=== PATIENT | male | born 1950 | race Caucasian/White ===

== ENCOUNTER 2020-08-28 13:19 | Inpatient (IN) | payer MEDICARE, MEDICAID, SELFPAY ==
[2020-08-28] VITALS (20 sets, daily range): BP systolic 120–194; BP diastolic 61–105; PULSE 77–106; RESP 16–28; TEMP 36.1–37.2; O2SAT 92–100; BMI 23.9
--- NOTE | ~2020-08-28 | XR_ITS ---
EXAMINATION: XR chest 2V EXAM DATE: 09/03/2020 07:55 INDICATION: Right-sided pneumothorax. TECHNIQUE: Frontal and lateral upright projections of the chest obtained and reviewed. Comparison is made to prior examination from 09/02/2020. FINDINGS: There has been redevelopment of pneumoperitoneum. No evidence of the previously seen right-sided pneumothorax on this exam. Small amount of linear atel ectasis along the right major fissure. Small amount of left basilar subsegmental atelectasis. No pleu ral effusion. Cardiomediastinal silhouette is normal. Upper lumbar dextrocurvature. There are bony de generative changes. IMPRESSION: 1. Redevelopment of pneumoperitoneum. Please correlate with recent CT abdomen 08/31. 2. Subsegmental atelectasis. 3. No pneumothorax identified. Reviewed, dictated and finalized at location A.
--- NOTE | ~2020-08-28 | XR_ITS ---
EXAMINATION: XR chest 1V portable INDICATION: Right lung mass, bronchoscopy TECHNIQUE: Portable AP chest at 1515 hours COMPARISON: 08/28/2009 FINDINGS: There is a moderate-sized right pneumothorax. The lungs are free of acute opacities. The he art size is normal. There is curvilinear lucency at the right lung base. IMPRESSION: 1. Moderate-sized right pneumothorax. 2. Curvilinear lucency at the right lung base which could reflect a pleural reflection related to the pneumothorax however, free intraperitoneal gas can have a similar appearance. Although bowel perfora tion is an unlikely consequence of bronchoscopy, clinically correlate for abdominal pain and consider further evaluation with CT if present. Reviewed, dictated and finalized at location B. IMPRESSION: 1. Moderate-sized right pneumothorax. 2. Curvilinear lucency at the right lung base which could reflect a pleural ref lection related to the pneumothorax however, free intraperitoneal gas can have a similar appearance. Although bowel perforation is an unlikely consequence of bronchoscopy, clinically correlate for abdominal pain and consider further eval uation with CT if present.
--- NOTE | ~2020-08-28 | US_ITS ---
EXAMINATION: US venous doppler [facility] EXAM DATE: 08/29/2020 10:23 INDICATION: Pulmonary emboli. TECHNIQUE: Multiple grayscale, color flow and Doppler images of the lower extremity deep venous syste ms bilaterally were obtained and reviewed. There is no prior study for comparison. FINDINGS: Right side: The right common femoral, femoral and profunda veins demonstrate normal color flow, respi ratory variation, augmentation and compressibility. Compressibility, color flow confirmed within the right popliteal, posterior tibial, peroneal, and greater saphenous veins. Left side: The left common femoral, femoral and profunda veins demonstrate normal color flow, respira tory variation, augmentation and compressibility. Compressibility, color flow confirmed within the l eft popliteal, posterior tibial, peroneal, and greater saphenous veins. IMPRESSION: 1. No lower extremity deep venous thrombosis bilaterally. Reviewed, dictated and finalized at location A.
--- NOTE | ~2020-08-28 | XR_ITS ---
EXAMINATION: XR chest 1V portable DATE: 09/04/2020 05:38 INDICATION: Right pneumothorax TECHNIQUE: frontal view of the chest was obtained. COMPARISON: Chest radiograph dated 09/03/2020 FINDINGS: The lungs are clear with no focal airspace opacities, pulmonary edema, pleural effusion or pneumothor ax. The cardiomediastinal silhouette is normal. IMPRESSION: 1. No evident acute cardiopulmonary disease. Reviewed, dictated and finalized at location A.
--- NOTE | ~2020-08-28 | CT_ITS ---
EXAMINATION: CTA chest PE protocol DATE: 08/28/2020 15:50 INDICATION: Shortness of breath, left-sided chest pain TECHNIQUE: Computed tomography angiography (CTA) of the chest was performed with 100 mL Omnipaque-350 intravenous contrast timed to evaluate the pulmonary arteries. Coronal maximum intensity projection 3D-reconstructions were created by the technologist. The dose-length product (DLP) was 326.99 mGy-cm. Automated exposure control and iterative reconstruction technique were employed. COMPARISON: None. FINDINGS: The pulmonary arteries are well-opacified. There are acute emboli in subsegmental branches in the right lower lobe, the lingula, and the left lower lobe. There is a 3 cm right suprahilar mass. There are enlarged right paratracheal and subcarinal lymph nodes. There is a 1.5 cm nodule of the ri ght upper lobe on image 40. A 5 mm pleural-based nodule is present in the right upper lobe on image 3 3. There are patchy airspace dependent opacities in the lingula and left lower lobe. The heart size i s normal. IMPRESSION: 1. Pulmonary emboli in the lower lobes and lingula. 2. Right suprahilar mass with mediastinal lymphadenopathy concerning for primary bronchogenic carcino ma and metastatic lymphadenopathy. 3. Indeterminate nodules in the right upper lobe which could reflect metastatic disease versus infect ion/inflammation. These findings were discussed with Dr. Sharad Handy MD in the Emergency Department at 1617 hour s on 08/28/2020. Reviewed, dictated and finalized at location A. IMPRESSION: 1. Pulmonary emboli in the lower lobes and lingula. 2. Right suprahilar mass with mediastinal lymphadenopathy concerning for primar y bronchogenic carcinoma and metastatic lymphadenopathy. 3. Indeterminate nodules in the right upper lobe which could reflect metastatic disease versus infection/inflammation. These findings were discussed with Dr. Sharad Handy MD in the Emergency D epartment at 1617 hours on 08/28/2020.
--- NOTE | ~2020-08-28 | XR_ITS ---
XR chest 1V DATE: 08/31/2020 17:34 INDICATION: Right pneumothorax, pneumoperitoneum TECHNIQUE: AP chest COMPARISON: 08/31/2020 portable AP chest at 1619 hours FINDINGS: Stable right pneumothorax. Free air is noted beneath both leaves of the diaphragm, relative ly stable in appearance. Normal heart size. No pulmonary infiltrate or consolidation is evident. IMPRESSION: Right pneumothorax and pneumoperitoneum, little interval change since 08/31/2020 Reviewed, dictated and finalized at location A. IMPRESSION: Right pneumothorax and pneumoperitoneum, little interval change sin 08/31/2020
--- NOTE | ~2020-08-28 | XR_ITS ---
EXAMINATION: XR chest 2V EXAM DATE: 08/28/2020 13:50 INDICATION: Pain to left lower chest/upper abd area, congestion. TECHNIQUE: Frontal and lateral projections of the chest obtained and reviewed. Comparison is made to prior examination from 11/03/2009. FINDINGS: The lungs are clear. There are no pleural effusions. The cardiomediastinal silhouette is within normal limits. There is no pneumothorax suspected. The bones and soft tissues are unremarkab le. IMPRESSION: No acute cardiopulmonary findings. Reviewed, dictated and finalized at location A.
--- NOTE | ~2020-08-28 | XR_ITS ---
EXAMINATION: XR chest 1V portable EXAM DATE: 09/01/2020 06:42 INDICATION: Right Pneumothorax . TECHNIQUE: Portable AP frontal chest x-ray was obtained. Comparison is made to prior examination from 08/31/2020. FINDINGS: Interval decrease in the size of the now small right-sided pneumothorax with about 1 cm bet ween the pleural reflections at the apex. Also interval decrease in the quantity of free air below th e diaphragm. No confluent consolidation or pleural effusion. Cardiomediastinal silhouette is normal, right hilar adenopathy is not apparent. There are bony degenerative changes. IMPRESSION: 1. Improving, now small right pneumothorax and pneumoperitoneum. Reviewed, dictated and finalized at location A.
--- NOTE | ~2020-08-28 | XR_ITS ---
EXAMINATION: XR chest 1V portable DATE: 08/31/2020 16:18 INDICATION: Right pneumothorax. TECHNIQUE: A single frontal view of the chest was obtained. COMPARISON: Chest single view at 3:10 PM, chest CT 08/28/2020 FINDINGS: There is a small right pneumothorax. There is mild atelectasis at the lung bases. There is free intraperitoneal gas under the diaphragm bilaterally. No pleural effusion. The heart size is norm al. IMPRESSION: 1. Small right pneumothorax with mild interval improvement. 2. Free intraperitoneal gas of uncertain etiology. Reviewed, dictated and finalized at location A.
--- NOTE | ~2020-08-28 | CT_ITS ---
EXAMINATION: CT chest abdomen pelvis w con DATE: 08/31/2020 17:32 INDICATION: Right Pneumothorax, pneumoperitoneum TECHNIQUE: Computed tomography (CT) of the chest, abdomen, and pelvis was performed with 100 cc Omnip aque 350 intravenous contrast. Automated exposure control and iterative reconstruction technique were employed. Exam dose: 754.37 mGy-cm total exam DLP. COMPARISON: 08/31/2020 portable AP chest 08/28/2020 CT pulmonary scan FINDINGS: CHEST CT: Again noted is a right superior perihilar approximately 12 mm soft tissue mass lesion and likely meta static right hilar, paratracheal and subcarinal metastatic lymphadenopathy, suspicious for bronchogen ic carcinoma. There are some asymmetric irregular narrowing of the right mainstem bronchial lumen with asymmetric t hickening of the wall of the right mainstem bronchus suggesting tumor infiltration. Normal heart size. No pericardial or pleural effusion. No thoracic aortic aneurysm or dissection. There is thoracic aortic and great vessel atherosclerotic calcification. There is mild right pneumothorax. There is mild dependent atelectasis along the greater fissure involving the posterior segment of the right upper lobe. There is mild infiltrate or atelectasis in the posterior basilar left lower lobe. Lung detail is limited due to prominent respiratory motion. Emphysematous changes are noted. Severe degenerative disc disease at C5-6, moderately prominent degenerative disc disease at C6-7. Minimal anterolisthesis and moderate degenerative disease at C7-T1. T3 and T9 vertebral body hemangiomas. ABDOMEN/PELVIS CT: Small sliding hiatal hernia. There is a prominent amount of free intraperitoneal air. Normal appendix. There are numerous diverticula of the sigmoid colon; Prominent collections of gas are noted surrounding the proximal sigmoid colon; ruptured colonic diver ticula is suggested. No bowel obstruction, bowel wall thickening, pneumatosis is evident. The liver, gallbladder, bile ducts, pancreas and pancreatic duct are unremarkable. There is some nons pecific hypoattenuating area scattered in the spleen. Small splenic infarcts are not excluded. The sp lenic artery is patent; no splenic artery aneurysm is evident. Normal morphology of the adrenal glands. 9 mm upper pole right renal cyst. Mildly prominent bilateral renal pelves. No urinary tract calculus or hydroureteronephrosis. There is moderate prostate enlargement. The urinary bladder is unremarkable . Mild bilateral fat containing inguinal hernias. There is atherosclerotic calcification of the abdominal aorta but no aneurysm. No intraperitoneal or retroperitoneal or pelvic mass lesion or adenopathy or ascites. Prominent degenerative change at the apophyseal joints of the lumbar and lumbosacral area with associ ated grade 1 anterolisthesis at L5-S1. Multilevel degenerative disc disease of the lumbar spine. Diffuse osteopenia. One or more possible old pelvic fractures. IMPRESSION: Right pneumothorax Prominent pneumoperitoneum Prominent air collections around the proximal sigmoid colon may indicate sigmoid colon rupture, mild diverticulitis, possible source of free air Small sliding hiatal hernia Right upper lobe 12 mm mass with metastatic right hilar and mediastinal lymphadenopathy, suspicious f or bronchogenic carcinoma Irregular narrowing and thickening of the wall of the right mainstem bronchus, suggesting tumor invas ion Emphysema Small sliding hiatal hernia 9 mm upper pole right renal cyst Possible small splenic infarcts Mild bilateral fat-containing inguinal hernias Grade 1 anterolisthesis at L5-S1 due to degenerative change at the apophyseal joints. Degenerative ch anges of the cervical, thoracic and lumbar spine. Reviewed, dictated and finalized
--- NOTE | ~2020-08-28 | XR_ITS ---
EXAMINATION: XR chest 1V portable EXAM DATE: 09/02/2020 05:26 INDICATION: Right-sided pneumothorax. TECHNIQUE: Portable AP frontal chest x-ray was obtained. Comparison is made to prior examination from 09/01/2020. FINDINGS: Stable small right-sided pneumothorax with about 1 cm between the pleural reflections at th e apex. Resolution of free intraperitoneal air below the diaphragm. No confluent consolidation or ple ural effusion. Cardiomediastinal silhouette is normal, right hilar adenopathy is not apparent. There are bony degenerative changes. IMPRESSION: Small right pneumothorax unchanged. Reviewed, dictated and finalized at location A.
--- NOTE | ~2020-08-28 | XR_ITS ---
EXAMINATION: XR abdomen/kub 1V DATE: 08/31/2020 16:18 INDICATION: Free intraperitoneal gas status post bronchoscopy. TECHNIQUE: A supine view of the abdomen on 2 radiographs was obtained. COMPARISON: Chest single view 08/31/2020 FINDINGS: There are no dilated loops of bowel. There is free intraperitoneal gas under the diaphragm. IMPRESSION: 1. Free intraperitoneal gas under the diaphragm of uncertain etiology. Reviewed, dictated and finalized at location A.
[2020-08-28 13:50] LABS: Basophils Percent Auto 0.3 % (0.2-1.2); Eosinophils Absolute Auto 0.1 K/mm3 (0-0.3); Eosinophils Percent Auto 0.7 % (0-4.4); Hematocrit 43.6 % (42.0-52.0); Hemoglobin 14.8 g/dL (14.0-18.0); Immature Granulocyte Absolute 0.08 K/mm3 (0.00-0.031); Immature Granulocyte Percent A 0.7 % (0-0.5); Lymphocytes Absolute Auto 0.97 K/mm3 (0.9-3.2); Mean Corpuscular HGB Conc 33.9 g/dl (32-36); Mean Corpuscular Volume 91.4 fl (80-100); Mean Platelet Volume 9.5 fl (7.4-10.4); Monocytes Absolute Auto 0.8 K/mm3 (0.1-0.6); Monocytes Percent Auto 6.2 % (2.6-8.5); Neutrophils Absolute Auto 10.2 K/mm3 (1.3-6.7); Neutrophils Percent Auto 84.1 % (45.5-73.1); Platelet Count Result 237 k/mm3 (150-375); Red Blood Count 4.77 M/mm3 (4.6-6.20); Red Cell Distribution Width 12.7 % (11.5-14.5); White Blood Count 12.1 K/mm3 (4.5-10.0)
[2020-08-28 14:05] LABS: Alanine Aminotransferase 18 U/L (4-50); Albumin Level 3.9 g/dL (3.5-5.1); Alkaline Phosphatase 89 U/L (38-126); Anion Gap 8 mmol/L (8-16); Aspartate Amino Transferase 24 U/L (17-59); Bilirubin,Total 1.2 mg/dL (0.2-1.3); Blood Urea Nitrogen 12 mg/dL (9-20); Calcium 8.4 mg/dL (8.4-10.2); Carbon Dioxide 24 mmol/L (22-30); Chloride 104 mmol/L (98-107); Estimated CRCL calculation 82 ml/min; Estimated Glomerular Filt Rate > 60; Glucose 138 mg/dL (75-110); Lipase 55 U/L (23-300); Potassium 3.8 mmol/L (3.4-5.0); Sodium 136 mmol/L (137-145)
--- NOTE | 2020-08-28 14:54 | ED.CHESTPAIN ---
HPI - Chest Pain General Chief Complaint: Abdominal Pain Stated Complaint: left side pain Time Seen by Provider: 08/28/20 14:39 Source: patient Mode of arrival: ambulatory Limitations: no limitations History of Present Illness HPI narrative: Patient is a 69-year-old male complaining of left lower chest wall pain, worse with movement and coughing, 10 out of 10, nonradiating, sharp, started last night. Patient states that he is short of breath but it is nothing new he has a history of COPD. Patient denies any abdominal pain, nausea, vomiting, diarrhea, fever or chills. Related Data Allergies Allergy/AdvReac Type Severity Reaction Status Date / Time No Known Allergies Allergy Unverified 03/04/18 10:44 Review of Systems Review of Systems: All systems reviewed & are unremarkable except as noted in HPI and below Constitutional: Constitutional: Denies body ache(s), Denies chills, Denies excessive sweating, Denies fatigue, Denies fever(s), Denies headache(s), Denies lethargy, Denies malaise, Denies weakness and Denies weight loss Eyes: Eyes: Denies blurry vision, Denies change in vision and Denies loss of vision ENT: Denies dizziness, Denies ear discharge, Denies headache(s), Denies lip swelling, Denies epistaxis, Denies nasal congestion, Denies neck pain, Denies throat swelling and Denies tongue swelling Cardiovascular: Cardiovascular: Denies diaphoresis, Denies rapid heart rate, Denies edema, Denies irregular heart rhythm, Denies lightheadedness, Denies palpitations, Denies dyspnea and Denies dyspnea on exertion Respiratory: Respiratory: Denies chest congestion, Denies cough, Denies hemoptysis, Denies dyspnea and Denies dyspnea on exertion Gastrointestinal: Gastrointestinal: Denies abdominal pain, Denies melena, Denies hematochezia, Denies diarrhea, Denies nausea, Denies vomiting and Denies hematemesis Musculoskeletal: Musculoskeletal: Denies abnormal gait, Denies deformity, Denies joint swelling, Denies limited range of motion, Denies neck pain and Denies numbness Neurologic: Denies Abnormal speech present, Denies abnormal gait, Denies confusion, Denies dizziness, Denies headache(s), Denies focal weakness, Denies loss of vision, Denies numbness, Denies Other visual disturbances, Denies Sensory deficit (Neuro) and Denies weakness Psychiatric: Psychiatric: Denies confusion, Denies depression, Denies auditory hallucinations, Denies homicidal ideation and Denies suicidal ideation Endocrine: Endocrine: Denies cold intolerance, Denies excessive sweating, Denies fatigue, Denies heat intolerance and Denies palpitations Hematologic/Lymphatic: Hematologic/Lymphatic: Denies easy bleeding and Denies easy bruising Allergic/Immunologic: Allergic/Immunologic: Denies lip swelling, Denies throat swelling and Denies tongue swelling PMFSH Comments Past medical history: COPD Family history: Negative for LA or coronary disease Social history: Ex-smoker but now vapes no EtOH or drug use Exam Const: General: cooperative, healthy appearing, comfortable, no acute distress, well developed, alert and awake; No confusion Orientation/consciousness: oriented to person, oriented to place, oriented to time, patient oriented x3 and No confusion Limitations: no limitations Other: Moderate distress HENMT: Head: normal to inspection, normocephalic and atraumatic Ears: hearing grossly normal bilaterally, TM normal on the right and TM normal on the left General nose exam: Normal external nose present, Normal nares present and No nasal discharge present Face and sinus: normal facial exam Mouth: Yes Normal oral and palatal mucosa present, Yes lip normal, Yes tongue normal and Yes oropharynx normal Throat: posterior oropharynx normal, tonsils normal and uvula midline Eyes: General: appearance normal, both eyes and all related structures Pupils: Equal, round and reactive pupils present EOM: EOMs intact bilaterally Neck: Neck: normal visual inspection, full ROM, no lym
[2020-08-28] MEDS: IPRATROPIUM BR 0.02% INH SOLN 0.5 MG/2.5 ML VIAL INHALATION ×2 (15:15→21:19)
[2020-08-28] MEDS: ALBUTEROL SULFATE NEB 2.5 MG/0.5 ML INH 5 MG INHALATION ×2 (15:15→21:19)
[2020-08-28] MEDS: HYDROmorphone HCL INJ (*CRX) 1 MG/ML SYR 0.5 MG IV PUSH (15:26)
[2020-08-28 15:33] LABS: Alveolar/Arterial O2 Gradient 44.1 mmHg; Base Excess ABG -3.8 mEq/l (+/-2.0); Carboxyhemoglobin 0.9 % THb (0-2.0); Fractional Inspired Oxygen 21 %; HCO3 ABG 18.6 mEq/l (22.0-26.0); Methemoglobin ABG 0.3 %THb (0-1.5); Oxygen Content ABG 19.8 %vol (16.0-22.0); Oxygen Saturation ABG 95.4 % (95.0-100.0); Oxyhemoglobin 93.7 % THb (90.0-100.0); PCO2 ABG 27.7 mmHg (35.0-45.0); PO2 ABG 72.5 mmHg (80.0-100.0); PO2 FiO2 Ratio Arterial Blood 3.45 %; Reduced Hemoglobin 5.1 %THb (0-5.0); pH ABG 7.446 (7.350-7.450)
[2020-08-28 15:34] LABS: Device ROOM AIR; Modified Allen's Test Pass; Site Drawn RIGHT RADIAL
--- NOTE | 2020-08-28 15:34 | PC.NURSE ---
Patient to go to CT for second attempt to obtain PE study. Patient was unable to tolerate supine position during initial attempt.
[2020-08-28 15:49] LABS: Partial Thromboplastin Time 28.2 SECONDS (22.3-36.8); Prothrombin Time 13.8 Seconds (11.1-14.7)
[2020-08-28 15:55] LABS: Troponin I 0.496 ng/mL (0.000-0.034)
[2020-08-28] MEDS: SODIUM CHLORIDE 0.9% IV 1,000 ML 999 ML IV CONT (16:02)
[2020-08-28] MEDS: MORPHINE SULFATE (*CRX) 4 MG/ML INJ IV PUSH (17:46)
[2020-08-28] MEDS: ENOXAPARIN 80 MG/0.8 ML SYRINGE SUB-Q (17:46)
[2020-08-28] MEDS: ONDANSETRON INJ 4 MG/2 ML VIAL IV PUSH (17:47)
[2020-08-28] MEDS: ASPIRIN 81 MG CHEWABLE TABLET 324 MG PO (17:47)
[2020-08-28 20:49] LABS: Troponin I 0.369 ng/mL (0.000-0.034)
--- NOTE | 2020-08-28 21:53 | ADMGEN ---
This patient, Ebenezer Quijano, was admitted to IMU Room 202-01 on 08/28/20 at 2113. Patient/family oriented to hospital policies and general routines including ID bracelet, bed and alarms, visiting hours, pain management, procedures, bathroom and other care routines, personal items, smoking policy, room service/diet, and visiting hours. Information on how to activate the Rapid Response Team has been discussed. Patient/Family are encouraged to report perceived risks to care and to ask questions if they do not understand what they are told or what they should do.
[2020-08-29] VITALS (23 sets, daily range): BP systolic 121–166; BP diastolic 55–71; PULSE 69–115; RESP 18–22; TEMP 35.6–36.8; O2SAT 92–98
--- NOTE | 2020-08-29 00:30 | PM.IMHP ---
H&P: HPI History of Present Illness Date/Time: 08/29/20 00:30 this is a 69-year-old male patient has no past medical history except for tobacco weak abuse. The patient stated that he does not take any medication on a routine basis. He has not had any fever chills. He has not coughed up any blood. But he said that he has been coughing for very long time. To the emergency room for left lower chest wall pain. Will worse with movement and coughing. He rated his pain 10/10 it was nonradiating and sharp. He stated that his pain started last night. He short of breath with exertion. It was noted that the patient has a history of COPD but the patient denied this. He had no nausea vomiting or diarrhea.. CT a pulmonary was read as 1. Pulmonary emboli in the lower lobes and lingula. 2. Right suprahilar mass with mediastinal lymphadenopathy concerning for primary bronchogenic carcinoma and metastatic lymphadenopathy. 3. Indeterminate nodules in the right upper lobe which could reflect metastatic disease versus infection/inflammation. The patient was given a dose of subcu Lovenox. Pulmonology has been consulted. For 40 some years. Patient's troponin was 0.496 and 0.396. He no longer complains of any chest pain. The patient was admitted to inpatient services on 08/29/2020. Chief Complaint: Chest pain Review of Systems Review of Systems: All systems reviewed & are unremarkable except as noted in HPI and below Constitutional: Constitutional: Reports as per HPI and Reports no additional constitutional complaints Eyes: Eyes: Reports as per HPI and Reports no additional eye complaints ENT: Reports system reviewed and no additional complaints, except as documented and Reports Normal hearing present Cardiovascular: Cardiovascular: Reports no additional cardiovascular complaints Respiratory: Respiratory: Reports no additional respiratory complaints and Reports no additional respiratory complaints Gastrointestinal: Gastrointestinal: Reports as per HPI and Reports no additional gastrointestinal complaints Musculoskeletal: Musculoskeletal: Reports no additional musculoskeletal complaints Integumentary/Breasts: Skin/Breast: Reports system reviewed and no additional complaints, except as docu and Reports as per HPI Neurologic: Reports system reviewed and no additional complaints, except as documented, Reports as per HPI and Reports Normal hearing present Psychiatric: Psychiatric: Reports no additional psychiatric complaints and Reports as per HPI Endocrine: Endocrine: Reports no additional endocrine complaints Hematologic/Lymphatic: Hematologic/Lymphatic: Reports no additional hematologic/lymphatic complaints Allergic/Immunologic: Allergic/Immunologic: Reports no additional allergic/immunologic complaints [facility] Surgical History Surgical History (Updated 08/29/20 @ 00:33 by Jesika Madison NP) No history of previous surgery Family History Family History (Updated 08/29/20 @ 00:36 by Jesika Madison NP) Father Cancer Mother No problems noted. Other Unknown family medical history Social History Social History (Updated 08/29/20 @ 00:39 by Jesika Madison NP) Social History: The patient lives with his and states that she is a durable power attorney lawyer for healthcare. The patient has 2 children and he is retired from the [employer]. The patient stated that he did smoke for 40 some years. He states that he has about 2 beers a day. He does not use any marijuana or illicit drugs. The patient told the staff earlier that he wanted to be a DNR. Smoking status: Former smoker Alcohol intake: current Drinks per week: 2 Substance use: never Spiritual care concerns: No Meds Home Medications and Allergies Home Medications Medication Instructions Recorded Confirmed Type albuterol sulfate [Ventolin HFA] 4 puff INHALATION QID PRN 08/28/20 08/28/20 History Allergies Allergy/AdvReac Type Severity Reaction
[2020-08-29] MEDS: IPRATROPIUM BR 0.02% INH SOLN 0.5 MG/2.5 ML VIAL INHALATION ×4 (02:11→20:15)
[2020-08-29] MEDS: ALBUTEROL SULFATE NEB 2.5 MG/0.5 ML INH 5 MG INHALATION ×4 (02:12→20:14)
[2020-08-29 04:49] LABS: Basophils Percent Auto 0.1 % (0.2-1.2); Hemoglobin 12.9 g/dL (14.0-18.0); Immature Granulocyte Absolute 0.05 K/mm3 (0.00-0.031); Immature Granulocyte Percent A 0.7 % (0-0.5); Lymphocytes Absolute Auto 0.35 K/mm3 (0.9-3.2); Lymphocytes Percent Auto 4.7 % (18.3-44.2); Mean Corpuscular HGB Conc 33.9 g/dl (32-36); Mean Corpuscular Hemoglobin 31.1 pg (26-34); Mean Corpuscular Volume 91.6 fl (80-100); Mean Platelet Volume 9.5 fl (7.4-10.4); Monocytes Absolute Auto 0.1 K/mm3 (0.1-0.6); Monocytes Percent Auto 1.1 % (2.6-8.5); Neutrophils Percent Auto 93.4 % (45.5-73.1); Platelet Count Result 190 k/mm3 (150-375); Red Blood Count 4.15 M/mm3 (4.6-6.20); Red Cell Distribution Width 12.6 % (11.5-14.5); White Blood Count 7.5 K/mm3 (4.5-10.0)
[2020-08-29 05:54] LABS: Thyroid Stimulating Hormone Reflex 0.171 uIU/mL (0.465-4.68)
[2020-08-29 06:25] LABS: Free T4 Free Thyroxine Reflex 1.18 ng/dL (0.78-2.19)
[2020-08-29] MEDS: ENOXAPARIN 80 MG/0.8 ML SYRINGE SUB-Q ×2 (06:29→17:19)
[2020-08-29 10:48] LABS: Total Triiodothyronine (T3) 0.78 NG/ML (0.97-1.69)
--- NOTE | 2020-08-29 11:45 | PM.IMPN ---
Progress Note: A&P Assessment and Plan (1) Pulmonary emboli: Code(s): I26.99 - Other pulmonary embolism without acute cor pulmonale Status: Acute Assessment and Plan: c t chest shows PE- Continue with subcu Lovenox. Check venous Dopplers and echo. May consider is transitioning to Xarelto tomorrow (2) Elevated troponin: Code(s): R77.8 - Other specified abnormalities of plasma proteins Status: Acute Assessment and Plan: Continue to trend. They appear to be flat. no further chest pain today pt is on telemtry. Could be related to the PEs. (3) Asthma exacerbation in COPD: Code(s): J44.1 - Chronic obstructive pulmonary disease with (acute) exacerbation; J45.901 - Unspecified asthma with (acute) exacerbation Status: Acute Assessment and Plan: Continue with the patient's inhaler. Add bronchodilators and iv steroids (4) Mass of lung: Code(s): R91.8 - Other nonspecific abnormal finding of lung field Status: Acute Assessment and Plan: Dr. Walker has been consulted. Patient may benefit from an outpatient PET scan. Subjective Date/time seen: 08/29/20 11:45 Interval history: 69-year-old male patient has no past medical history except for tobacco weak abuse. The patient stated that he does not take any medication on a routine basis. Feels sob and wheezy today, explained findings of ct chest awaiting pulmonology consult. Pt is a heavy smoker has been vaping for [address] chest shows- 1. Pulmonary emboli in the lower lobes and lingula. 2. Right suprahilar mass with mediastinal lymphadenopathy concerning for primary bronchogenic carcinoma and metastatic lymphadenopathy. 3. Indeterminate nodules in the right upper lobe which could reflect metastatic disease versus infection/inflammation. Review of Systems Review of Systems: All systems reviewed & are unremarkable except as noted in HPI and below Exam Const: General: cooperative, comfortable and alert Nutritional Appearance: thin Orientation/consciousness: oriented to person, oriented to place, oriented to time and patient oriented x3 Limitations: no limitations Chest: Chest palpation & inspection: normal inspection of the chest Resp: Auscultation: wheezes expiratory wheezes Cardio: Palpation: normal PMI Rate: regular rate Rhythm: regular rhythm Heart sounds: S1 normal heart sound present and S2 normal heart sound present Peripheral pulses: Peripheral pulses 2+ throughout GI: Inspection: normal to inspection Auscultation: normal bowel sounds Skin: General skin exam: normal color Lesions: no lesions Rashes: no rashes Trauma: no lacerations or abrasions Wounds: no wounds Hair: normal Nails: normal Neuro: General: oriented to person, oriented to place, oriented to time and patient oriented x3 Cranial nerves: Yes Equal, round and reactive pupils present and Yes hard of hearing Cognition (Neuro): normal cognition Speech: normal speech Gait exam (Neuro): Assisted gait required Motor exam (neuro): 5/5 motor strength present throughout Sensory Exam: normal sensation Extrem: General: normal to inspection Right upper extremity: normal to inspection Left upper extremity: normal to inspection Right lower extremity: normal to inspection Left lower extremity: normal to inspection Psych: Appearance: grossly normal Mental Status: mental status grossly normal Speech and movement: Normal speech and movement present Affect: normal affect Attitude: cooperative Thought process: Normal thought process present Insight: Fair insight present (Psych) Judgement: Fair judgement present (Psych) Objective Data Vital Signs Vital Signs: Vital Signs - 24 hr 08/28/20 13:29 08/28/20 14:11 08/28/20 14:14 Temperature 36.2 C L 37.2 C Pulse Rate 77 84 84 Respiratory Rate 18 19 28 H Blood Pressure 130/61 136/105 H Pulse Oximetry 94 98 93 08/28/20 14:19 08/28/20 15:02 08/28/20 15:15 Temperature Pulse Rate
[2020-08-29] MEDS: methylPREDNISolone SOD SUCC 125 MG VIAL 75 MG IV PUSH ×3 (12:35→22:50)
--- NOTE | 2020-08-29 14:49 | PM.CNPUL ---
Assessment and Plan Assessment and plan (1) Mass of lung: Code(s): R91.8 - Other nonspecific abnormal finding of lung field Status: Acute Assessment and Plan: He has a right suprahilar mass 3 cm in size associated with mediastinal, hilar and subcarinal lymphadenopathy likely bronchogenic carcinoma. He has a right upp1.5 cm. He presented with pulmonary embolism and is currently on anticoagulation with Lovenox transitioning to an oral anticoagulant. He is clinically stable, normal hemodynamics, and may be able to have a bronchoscopy while he is here, before going home, holding the Lovenox for 12 hours before the procedure. He should have a PET scan after discharge. (2) Pulmonary emboli: Code(s): I26.99 - Other pulmonary embolism without acute cor pulmonale Status: Acute Assessment and Plan: he has pulmonary emboli in the subsegmental branches in the right lower lobe, the lingula, and the left lower lobe. lower extremity Dopplers are negative he is hemodynamically stable he is on Lovenox. can transition to oral anticoagulant after bronchoscopy needs 7 echocardiogram for risk stratification following pulmonary emboli pulmonary emboli may be paraneoplastic manifestation due to lung cancer (3) COPD (chronic obstructive pulmonary disease) case management patient: Code(s): J44.9 - Chronic obstructive pulmonary disease, unspecified Status: Acute Assessment and Plan: He has COPD which was moderate in 2018, on no controller medications. He only uses a Proventil several times a day.with He needs Rx for COPD with Anoro, and have out-patient PFTs, 6 min walk to evaluate his COPD and improve control of his lung function. (4) History of tobacco abuse: Code(s): Z87.891 - Personal history of nicotine dependence Status: Acute Assessment and Plan: Smoked heavily until 7 years ago 40+ years has not been screened for lung cancer (5) Current every day nicotine vaping: Code(s): Z72.0 - Tobacco use Status: Acute Assessment and Plan: he vapes throughout the day; this is not benign, and increase his risk of COVID, vaping related lung injury (6) Shortness of Breath: Code(s): R06.02 - Shortness of breath Status: Acute Assessment and Plan: He has shortness of breath at baseline, can walk 20 feet before needing to stop due to dyspnea. History of Present Illness History of Present Illness Consult date: 08/30/20 Chief complaint: Acute PE, COPD exacerbation, Lung Mass Narrative: NEW: Ebenezer Quijano is a 69 year old man seen in Room 202, Nori is present. He was admitted with increased shortness of breath, had a chest CTA showing PE in the subsegmental branches in the right lower lobe, the lingula, and the left lower lobe. He has a 3 cm right hilar mass, mediastinal lymphadenopathy concerning for primary bronchogenic carcinoma and metastatic lymphadenopathy. He has additional nodules in the right upper lobe which could reflect metastatic disease versus infection/inflammation. He was a smoker for years, stopped 7 years ago, now vapes heavily, has a chronic cough with yellow sputum. He is short of breath with exertion, however uses a cane so his exercise capacity is limited more by his inability to walk than his breathing. He uses only Proventil, no controller meds. He has no history of hospital admissions for COPD or pneumonia, denies having exacerbations of COPD and does not require prednisone or antibiotics for infections. Review of Systems Review o
--- NOTE | 2020-08-29 16:20 | ECG_ITS ---
Measurements Intervals [place] Rate: 92 P: 48 MA: 178 QRS: -46 QRSD: 102 T: -31 QT: 379 QTc: 470 Interpretive Statements SINUS RHYTHM ATRIAL AND VENTRICULAR PREMATURE COMPLEXES LEFT ANTERIOR FASCICULAR BLOCK ST-T WAVE ABNORMALITY IN ANTERIOR LEADS- CONSIDER ISCHEMIA BASELINE WANDER- V4-V6 ABNORMAL ECG Electronically Signed On 08-29-2020 14:25:43 CDT by Theo Aguilera D.O.
--- NOTE | 2020-08-29 16:41 | PC.NURSE ---
Notified Dr. Reynolds at 16:40 to notify her of a hematoma in patient's right wrist. Will apply ice as per Dr. Reynolds's orders. No other orders at this time.
[2020-08-30] VITALS (17 sets, daily range): BP systolic 134–160; BP diastolic 68–83; PULSE 74–105; RESP 16–24; TEMP 36.2–36.7; O2SAT 95–99
--- NOTE | 2020-08-30 | ECHO_ITS ---
Patient Info Name: Ebenezer Quijano Age: 69 years : 1950 Gender: Male Ht: 72 in Wt: 160 lbs BSA: 1.92 m2 HR: 92 bpm BP: 136 / 74 mmHg Heart Rhythm: Sinus Rhythm Technical Quality: Good Exam Date: 08/30/2020 9:48 AM Exam Location: [facility] Patient Status: Inpatient Admit Date: 08/28/2020 Staff Ordering Physician: Jesika Madison NP Blueprint Assembler: Jorge Ornelas RDCS, RT Attending Provider: Carlo Quick MD Referring Physician: Gricelda ZARAGOZA; Exam Type: CA echo doppler color flow Study Info Indications I26.09 - Other pulmonary embolism with acute cor pulmonale Complete two-dimensional, color flow and Doppler transthoracic echocardiogram is performed. Strain analysis performed. Summary 1. Complete two-dimensional, color flow and Doppler transthoracic echocardiogram is performed. 2. Normal left ventricular and right ventricular size and contractility. 3. No significant valvular disease. 4. No signs of right ventricular pressure or volume overload. Left Ventricle Left ventricular systolic function is hyperdynamic, estimated at >70%. The left ventricular diastolic function is normal. Right Ventricle Right ventricular chamber dimension is normal. Left Atria Left atrial chamber dimension is normal. Right Atria Right atrial chamber dimension is normal. Aortic Valve The aortic valve is trileaflet. There is no aortic valve stenosis. Pulmonic Valve The pulmonic valve is not well visualized. Mitral Valve The mitral valve has normal leaflets. Tricuspid Valve The tricuspid valve leaflets are normal. Pericardium/Pleural The pericardium appears normal. Aorta The aortic root size at the sinus of Valsalva is normal. Left Ventricular Outflow Tract Name Value Normal LVOT 2D LVOT Diameter 2.0 cm LVOT Doppler LVOT Peak Gradient 6 mmHg LVOT Mean Gradient 3 mmHg LVOT VTI 23 cm LVOT VTI/AV VTI Ratio 0.8 LVOT Stroke Volume 76 ml LVOT CO 7.0 l/min LVOT CI 3.7 l/min/m2 Mitral Valve Name Value Normal MV Doppler MV Decel [place] 341 cm/s2 MV PHT 64 ms MV Area (PHT) 3.4 cm2 4.0-5.0 MV Diastolic Function MV E Peak Velocity 75 cm/s MV A Peak Velocity 91 cm/s MV E/A 0.8 MV Decel Time 221 ms MV Annular TDI MV E/e' (Septal)
[2020-08-30 05:28] LABS: Anion Gap 4 mmol/L (8-16); Blood Urea Nitrogen 12 mg/dL (9-20); Calcium 8.2 mg/dL (8.4-10.2); Carbon Dioxide 28 mmol/L (22-30); Chloride 105 mmol/L (98-107); Estimated CRCL calculation 91 ml/min; Estimated Glomerular Filt Rate > 60; Glucose 204 mg/dL (75-110); Potassium 3.6 mmol/L (3.4-5.0); Sodium 137 mmol/L (137-145)
[2020-08-30] MEDS: methylPREDNISolone SOD SUCC 125 MG VIAL 75 MG IV PUSH (05:30)
[2020-08-30] MEDS: ENOXAPARIN 80 MG/0.8 ML SYRINGE SUB-Q (05:31)
[2020-08-30] MEDS: ALBUTEROL SULFATE NEB 2.5 MG/0.5 ML INH 5 MG INHALATION (08:01)
[2020-08-30] MEDS: IPRATROPIUM BR 0.02% INH SOLN 0.5 MG/2.5 ML VIAL INHALATION ×3 (08:02→20:25)
--- NOTE | 2020-08-30 12:09 | PM.PNPUL ---
Progress Note: A&P Assessment and Plan (1) Mass of lung: Code(s): R91.8 - Other nonspecific abnormal finding of lung field Status: Acute Assessment and Plan: 08/29 He has a right suprahilar mass 3 cm in size associated with mediastinal, hilar and subcarinal lymphadenopathy likely bronchogenic carcinoma. He has a right upper lobe 1.5 cm. He presented with pulmonary embolism and is currently on anticoagulation with Lovenox transitioning to an oral anticoagulant. He is clinically stable, normal hemodynamics, and may be able to have a bronchoscopy while he is here, before going home, holding the Lovenox for 12 hours before the procedure. 08/30 Will proceed with bronchoscpy and waiting to hear from scheduling for 08/31. I spoke with patient and he agrees. Last does of lovenox this morning. He should have a PET scan after discharge. (2) Pulmonary emboli: Code(s): I26.99 - Other pulmonary embolism without acute cor pulmonale Status: Acute Assessment and Plan: 08/30 he has pulmonary emboli in the subsegmental branches in the right lower lobe, the lingula, and the left lower lobe. lower extremity Dopplers are negative he is hemodynamically stable he is on full dose Lovenox. can transition to oral anticoagulant after bronchoscopy needs echocardiogram for risk stratification following pulmonary emboli pulmonary emboli may be paraneoplastic manifestation due to lung cancer (3) COPD (chronic obstructive pulmonary disease) case management patient: Code(s): J44.9 - Chronic obstructive pulmonary disease, unspecified Status: Acute Assessment and Plan: Baseline he can walk 20-25 feet and stops for DAIGLE, mMRC grade 3.On albuterol inhaler PRN only. 08/29 He has COPD which was moderate in 2018, on no controller medications. He only uses a Proventil several times a day.with He needs Rx for COPD with Anoro, and have out-patient PFTs, 6 min walk to evaluate his COPD and improve control of his lung function. 08/30 Currently on trelegy and albuterol and ipratripruium nebs. I will continue albuterol at 2.5 mg dose and ipratroprium 0.5 mg nebs and DC trelegy for now. I will change to solumedrol 20 Q 6 today. (4) History of tobacco abuse: Code(s): Z87.891 - Personal history of nicotine dependence Status: Acute Assessment and Plan: Smoked heavily until 7 years ago, age 23 to 62 at 1.5 PPD, 59 PY, also vapes. Needs to stop vaping. Subjective Date/time seen: 08/30/20 12:09 Interval history: 08/29 NEW: Ebenezer Quijano is a 69 year old man seen in Room 202, Nori is present. He was admitted with increased shortness of breath, had a chest CTA showing PE in the subsegmental branches in the right lower lobe, the lingula, and the left lower lobe. He has a 3 cm right hilar mass, mediastinal lymphadenopathy concerning for primary bronchogenic carcinoma and metastatic lymphadenopathy. He has additional nodules in the right upper lobe which could reflect metastatic disease versus infection/inflammation. He was a smoker for years, stopped 7 years ago, now vapes heavily, has a chronic cough with yellow sputum. He is short of breath with exertion, however uses a cane so his exercise capacity is limited more by his inability to walk than his breathing. He uses only Proventil, no controller meds. He has no history of hospital admissions for COPD or pneumonia, denies having exacerbations of COPD and does not require prednisone or antibiotics for infections. Started on lovenox 80 Q 12, terelegy and albuterol and ipratroprium nebs Q 6. 08/30 Patient states he is breeathing better. Now states that he is 70% back to normal. No chest pain or h
--- NOTE | 2020-08-30 13:06 | PM.IMPN ---
Progress Note: A&P Assessment and Plan (1) Pulmonary emboli: Code(s): I26.99 - Other pulmonary embolism without acute cor pulmonale Status: Acute Assessment and Plan: c t chest shows PE- hold Lovenox pt going for bronch (2) Elevated troponin: Code(s): R77.8 - Other specified abnormalities of plasma proteins Status: Acute Assessment and Plan: Could be related to the PEs. (3) Asthma exacerbation in COPD: Code(s): J44.1 - Chronic obstructive pulmonary disease with (acute) exacerbation; J45.901 - Unspecified asthma with (acute) exacerbation Status: Acute Assessment and Plan: Continue with the patient's inhaler. Add bronchodilators and iv steroids (4) Mass of lung: Code(s): R91.8 - Other nonspecific abnormal finding of lung field Status: Acute Assessment and Plan: Dr. Kat has been consulted. Patient may benefit from an outpatient PET scan. Needs urgent bronchoscopy while he is here. Subjective Date/time seen: 08/30/20 13:06 Interval history: 69-year-old male patient has no past medical history except for tobacco weak abuse. The patient stated that he does not take any medication on a routine basis. Feels sob and wheezy today, explained findings of ct chest awaiting pulmonology consult. Pt is a heavy smoker has been vaping for [address] chest shows- 1. Pulmonary emboli in the lower lobes and lingula. 2. Right suprahilar mass with mediastinal lymphadenopathy concerning for primary bronchogenic carcinoma and metastatic lymphadenopathy. 3. Indeterminate nodules in the right upper lobe which could reflect metastatic disease versus infection/inflammation. Pt seen by pulmology, awaiting bronchoscopy, continue to treat in the hospital. Review of Systems Review of Systems: All systems reviewed & are unremarkable except as noted in HPI and below Exam Const: General: cooperative Nutritional Appearance: thin Orientation/consciousness: oriented to person, oriented to place, oriented to time and patient oriented x3 Resp: Auscultation: wheezes expiratory wheezes Cardio: Heart sounds: S1 normal heart sound present and S2 normal heart sound present Peripheral pulses: Peripheral pulses 2+ throughout GI: Inspection: normal to inspection Auscultation: normal bowel sounds Neuro: General: oriented to person, oriented to place, oriented to time and patient oriented x3 Cranial nerves: Yes Equal, round and reactive pupils present Cognition (Neuro): normal cognition Speech: normal speech Motor exam (neuro): 5/5 motor strength present throughout Sensory Exam: normal sensation Extrem: General: normal to inspection Right upper extremity: normal to inspection Left upper extremity: normal to inspection Right lower extremity: normal to inspection Left lower extremity: normal to inspection Psych: Appearance: grossly normal Mental Status: mental status grossly normal Speech and movement: Normal speech and movement present Affect: normal affect Attitude: cooperative Thought process: Normal thought process present Insight: Fair insight present (Psych) Judgement: Fair judgement present (Psych) Objective Data Vital Signs Vital Signs: Vital Signs - 24 hr 08/29/20 13:21 08/29/20 13:30 08/29/20 14:00 Temperature Pulse Rate 93 92 114 H Respiratory Rate 20 20 Blood Pressure Pulse Oximetry 08/29/20 16:00 08/29/20 16:38 08/29/20 18:00 Temperature 36.6 C Pulse Rate 92 88 115 H Respiratory Rate 22 H Blood Pressure 130/57 L Pulse Oximetry 94 08/29/20 19:51 08/29/20 20:00 08/29/20 20:15 Temperature 36.8 C Pulse Rate 93 78 92 Respiratory Rate 20 20 Blood Pressure 139/71 Pulse Oximetry 95 08/29/20 20:26 08/29/20 22:00 08/29/20 23:49 Temperature 36.5 C Pulse Rate 90 79 91 Respiratory Rate 20 20 Blood Pressure 166/71 H Pulse Oximetry 98 08/30/20 00:00 08/30/20 02:00 08/30/20 03:48 Temperature 36.3 C L
[2020-08-30] MEDS: ALBUTEROL SULFATE NEB 2.5 MG/0.5 ML INH INHALATION ×2 (13:23→20:25)
--- NOTE | 2020-08-30 17:07 | PC.NURSE ---
This patient, Ebenezer Quijano, was transferred to [facility] on 08/30/20 at 1707. Personal belongings sent with patient. Report given to CAMPBELL Quintero. Appropriate documentation sent with patient.
--- NOTE | 2020-08-30 17:11 | PC.NURSE ---
This patient, Ebenezer Quijano, was received from [[facility] ] on 08/30/20 at 1712. Patient/family oriented to unit policies and routines
[2020-08-30] MEDS: methylPREDNISolone SOD SUCC 40 MG VIAL 20 MG IV PUSH (17:45)
[2020-08-31] VITALS (27 sets, daily range): BP systolic 105–160; BP diastolic 72–101; PULSE 77–94; RESP 17–26; TEMP 36.1–36.9; O2SAT 95–100
[2020-08-31] MEDS: methylPREDNISolone SOD SUCC 40 MG VIAL 20 MG IV PUSH ×5 (00:36→23:40)
[2020-08-31] MEDS: IPRATROPIUM BR 0.02% INH SOLN 0.5 MG/2.5 ML VIAL INHALATION ×3 (01:06→20:13)
[2020-08-31] MEDS: ALBUTEROL SULFATE NEB 2.5 MG/0.5 ML INH INHALATION ×3 (01:06→20:13)
--- NOTE | 2020-08-31 09:57 | PM.PNPUL ---
Progress Note: A&P Assessment and Plan (1) Mass of lung: Code(s): R91.8 - Other nonspecific abnormal finding of lung field Status: Acute Assessment and Plan: 08/29 He has a right suprahilar mass 3 cm in size associated with mediastinal, hilar and subcarinal lymphadenopathy likely bronchogenic carcinoma. He has a right upper lobe 1.5 cm. He presented with pulmonary embolism and is currently on anticoagulation with Lovenox transitioning to an oral anticoagulant. He is clinically stable, normal hemodynamics, and may be able to have a bronchoscopy while he is here, before going home, holding the Lovenox for 12 hours before the procedure. 08/30 Will proceed with bronchoscpy and waiting to hear from scheduling for 08/31. I spoke with patient and he agrees. Last does of lovenox this morning. 08/31 bronchoscopy later today. He should have a PET scan after discharge. (2) Pulmonary emboli: Code(s): I26.99 - Other pulmonary embolism without acute cor pulmonale Status: Acute Assessment and Plan: 08/30 he has pulmonary emboli in the subsegmental branches in the right lower lobe, the lingula, and the left lower lobe. Lower extremity Dopplers are negativ on 08/29. He he is hemodynamically stable and on full dose Lovenox. Can transition to oral anticoagulant after bronchoscopy. Echo with no evidence of right heart strain or fluid overlaod. Pulmonary emboli may be paraneoplastic manifestation due to lung cancer. 08/31 Lovenox to restart tonight if no bleeding complications from bronchoscopy. Will need DOAC that he can afford. (3) COPD (chronic obstructive pulmonary disease) case management patient: Code(s): J44.9 - Chronic obstructive pulmonary disease, unspecified Status: Acute Assessment and Plan: Baseline he can walk 20-25 feet and stops for DAIGLE, mMRC grade 3.On albuterol inhaler PRN only. 08/29 He has COPD which was moderate in 2018, on no controller medications. He only uses a Proventil several times a day.with He needs Rx for COPD with Anoro, and have out-patient PFTs, 6 min walk to evaluate his COPD and improve control of his lung function. 08/30 Currently on trelegy and albuterol and ipratripruium nebs. I will continue albuterol at 2.5 mg dose and ipratroprium 0.5 mg nebs and DC trelegy for now. I will change to solumedrol 20 Q 6 today. 08/31 Improved and breathing better than he has in a few years. Continue solumedrol today as NPO and getting bronchsocpy. Cotninue albuterol at 2.5 mg dose and ipratroprium 0.5 mg nebs Q 6 hours. (4) History of tobacco abuse: Code(s): Z87.891 - Personal history of nicotine dependence Status: Acute Assessment and Plan: Smoked heavily until 7 years ago, age 23 to 62 at 1.5 PPD, 59 PY, also vapes. Needs to stop vaping. Subjective Date/time seen: 08/31/20 09:57 Interval history: 08/29 NEW: Ebenezer Quijano is a 69 year old man seen in Room 202, Nori is present. He was admitted with increased shortness of breath, had a chest CTA showing PE in the subsegmental branches in the right lower lobe, the lingula, and the left lower lobe. He has a 3 cm right hilar mass, mediastinal lymphadenopathy concerning for primary bronchogenic carcinoma and metastatic lymphadenopathy. He has additional nodules in the right upper lobe which could reflect metastatic disease versus infection/inflammation. He was a smoker for years, stopped 7 years ago, now vapes heavily, has a chronic cough with yellow sputum. He is short of breath with exertion, however uses a cane so his exercise capacity is limited more by his inability to walk than his breathing. He uses only Proventil, no controller meds. He has no hi
--- NOTE | 2020-08-31 11:48 | PM.IMPN ---
Progress Note: A&P Assessment and Plan (1) Acute pulmonary embolism: Qualifiers: Acute cor pulmonale presence: without acute cor pulmonale Pulmonary embolism type: unspecified Qualified Code(s): I26.99 - Other pulmonary embolism without acute cor pulmonale Code(s): I26.99 - Other pulmonary embolism without acute cor pulmonale Status: Acute Assessment and Plan: Patient on therapeutic Lovenox Holding for a bronchoscopy (2) Mass of lung: Code(s): R91.8 - Other nonspecific abnormal finding of lung field Status: Acute Assessment and Plan: Will undergo bronchoscopy due date by poke in Appreciate pulmonology note (3) Shortness of Breath: Code(s): R06.02 - Shortness of breath Status: Acute Assessment and Plan: Continue breathing treatments as needed (4) Asthma exacerbation in COPD: Code(s): J44.1 - Chronic obstructive pulmonary disease with (acute) exacerbation; J45.901 - Unspecified asthma with (acute) exacerbation Status: Acute Assessment and Plan: On breathing treatments Not actively wheezing when examined in the morning. (5) Current every day nicotine vaping: Code(s): Z72.0 - Tobacco use Status: Acute Assessment and Plan: Patient denied the use of tobacco or any tobacco products when asked (6) History of tobacco abuse: Code(s): Z87.891 - Personal history of nicotine dependence Status: Acute Assessment and Plan: Patient states that he has smoked for 40 years and quit 7 years ago (7) Elevated troponin: Code(s): R77.8 - Other specified abnormalities of plasma proteins Status: Acute Assessment and Plan: Likely type 2 [place] secondary to pulmonary embolism Echocardiogram has been reviewed Subjective Date/time seen: 08/31/20 11:48 I feel well Review of Systems Review of Systems: Narrative: Patient denies any discomfort at this time no complaints. Patient presented to the emergency room due to pleuritic chest pain worse with deep inspiration and coughing patient also with persistent dry cough for quite some time. Constitutional: Comments: No chills no rigors no fevers Cardiovascular: Comments: No chest pain no PND no orthopnea Respiratory: Comments: Dry cough, ribcage pain with deep inspiration Gastrointestinal: Comments: No nausea no vomiting no diarrhea no constipation no abdominal pain Musculoskeletal: Comments: No muscle pain or joint pain Integumentary/Breasts: Comments: No rashes Neurologic: Comments: No sensorimotor deficit Exam Narrative: Exam Narrative: Well-appearing laying in bed in no acute distress Const: General: comfortable, no acute distress, well developed, alert and awake Nutritional Appearance: average body habitus Orientation/consciousness: patient oriented x3 HENMT: Head: normal to inspection, normocephalic and atraumatic Ears: hearing grossly normal bilaterally Face and sinus: normal facial exam Eyes: General: appearance normal, both eyes and all related structures Pupils: Equal, round and reactive pupils present EOM: EOMs intact bilaterally Neck: Neck: full ROM, no lymphadenopathy and no JVD Thyroid: thyroid normal Lymphatic: no lymphadenopathy noted Resp: Effort & Inspection: normal respiratory effort and able to speak in complete sentences Auscultation: clear to auscultation bilaterally Cardio: Jugular venous distension: no JVD Rate: regular rate Rhythm: regular rhythm Heart sounds: S1 normal heart sound present and S2 normal heart sound present GI: GI Palp: Yes Soft to palpation and Yes No hepatosplenomegaly present : General: Yes deferred Skin: Rashes: no rashes Wounds: no wounds Neuro: General: patient oriented x3 and CN's II-XI intact bilaterally Cranial nerves: Yes CN's II-XII intact bilaterally and Yes Equal, round and reactive pupils present Cognition (Neuro): normal cognition Speech: normal speech Gait exam (
--- NOTE | 2020-08-31 13:00 | PC.NURSE ---
Patient to GI lab per wheelchair.
--- NOTE | 2020-08-31 13:39 | WPDANESEPPF ---
Anes - Initial Pre Proc Eval Procedure: Operation Date: 08/31/20 13:15 Proposed Procedures p Bronchoscopy with Fluoroscopy - Umberto Kat MD Date/Time: 08/31/20 13:39 Surgeon: Carlo Quick MD Pre Op Diagnosis: Acute PE, COPD exacerbation, Lung Mass Patient Data Age: 69 Gender: M Height: 6 ft Weight: 77.3 kg Last Vital Signs Temp 97.6 F 08/31/20 13:27 Pulse 86 08/31/20 13:27 Resp 20 08/31/20 13:27 BP 130/84 08/31/20 13:27 Pulse Ox 97 08/31/20 13:27 Allergies Allergy/AdvReac Type Severity Reaction Status Date / Time No Known Allergies Allergy Verified 08/31/20 13:25 Home Medications Medication Instructions Recorded Confirmed Type albuterol sulfate [Ventolin HFA] 4 puff INHALATION QID PRN 08/28/20 08/28/20 History Patient hx anesthesia problems: none Family hx anesthesia problems: none PMFSH Past Medical History Medical History (Updated 08/31/20 @ 13:42 by Edwin Michel MD) Acute pulmonary embolism History of tobacco abuse Mass of lung Non-ST elevation MT (NSTEMI) Pulmonary emboli Surgical History Surgical History (Updated 08/29/20 @ 00:33 by Jesika Madison NP) No history of previous surgery Family History Family History (Updated 08/29/20 @ 00:36 by Jesika Madison NP) Father Cancer Mother No problems noted. 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 The patient has 2 children and he is retired from the [employer]. The patient stated that he did smoke for 40 some years. He states that he has about 2 beers a day. He does not use any marijuana or illicit drugs. The patient told the staff earlier that he wanted to be a DNR. Smoking status: Former smoker Alcohol intake: current Drinks per week: 2 Substance use: never Spiritual care concerns: No Anes - Eval Final PreProcedure Day of Procedure 08/31/20 13:39 Patient weight: overweight Heart: regular rate and rhythm Lungs: clear to auscultation Airway: Mallampati scale class II Neurological: alert and oriented Last oral intake: >/= 8 hours ASA classification: IV Emergent: no Anesthetic plan: proceed Anesthesia type and monitoring: general ETT and standard monitoring Informed Consent: The patient's anesthetic plan and its attendant risks and benefits were discussed with the patient/family/POA. Questions were solicited and answers provided to the satisfaction of the patient/family/POA.
[2020-08-31] MEDS: LACTATED RINGERS 1,000 ML 150 ML IV CONT (13:58)
--- NOTE | 2020-08-31 14:37 | PCRCNOTE ---
1400 treatment not given. Patient not in room, gone for procedure.
[2020-08-31] MEDS: SODIUM CHLORIDE 0.9% IV 500 ML BAG 12 ML IRRIGATION (14:59)
--- NOTE | 2020-08-31 15:27 | SUR.PHASEII ---
Pt into recovery. Lungs coarse with inspiratory and expiratory wheezes. Denies pain. Radiology at bedside for x-ray.
--- NOTE | 2020-08-31 15:31 | SUR.PHASEII ---
Per floor nurse, informed pt has right sided pneumo. Dr. Kat made aware.
--- NOTE | 2020-08-31 15:56 | PM.PNPUL ---
Progress Note: A&P Assessment and Plan (1) Pneumothorax of right lung after biopsy: Code(s): J95.811 - Postprocedural pneumothorax Status: Acute Additional Plan Patient with pneumothorax and possible free abdomnial air after needle aspirate subcarinal, paratracheal lymph nodes and then brushing of right mainstem/bronchus intermedius white pearly mass and then endobronchial biopsies. No transbronchial biopsies performed. Currently assymptomatic with saturations now 100% on 5 L NC. Maintain sats 100% for now. NPO, I will repeat CXR in one hour to assess pneumothorax. Time Spent With Patient Time with patient: Greater than 35 minutes Subjective Date/time seen: 08/31/20 15:56 Interval history: Patient s/p bronchoscopy with subcarinal and paratracheal lymph node aspirates, bronchial brushings and endobronchial biopsy of right mainstem/bronchus intermedius white pearly mass. Post procedure CXR with moderate right pneumothorax and possible free air in abdomen. . Currently patient asymptomatic with no SOB, wheezing or chest pain. Patient denies sore throat, change in voice, N/V, abdominal pain. Review of Systems Review of Systems: All systems reviewed & are unremarkable except as noted in HPI and below Eyes: Eyes: Reports no additional eye complaints ENT: Reports system reviewed and no additional complaints, except as documented and Reports sinus pressure Cardiovascular: Cardiovascular: Reports no additional cardiovascular complaints Respiratory: Respiratory: Reports no additional respiratory complaints Gastrointestinal: Gastrointestinal: Reports no additional gastrointestinal complaints Musculoskeletal: Musculoskeletal: Reports no additional musculoskeletal complaints Integumentary/Breasts: Skin/Breast: Reports system reviewed and no additional complaints, except as docu Neurologic: Reports system reviewed and no additional complaints, except as documented and Reports behavioral changes Psychiatric: Psychiatric: Reports no additional psychiatric complaints and Reports behavioral changes Endocrine: Endocrine: Reports no additional endocrine complaints Exam Const: General: cooperative and healthy appearing Orientation/consciousness: oriented to person, oriented to place and oriented to time HENMT: Head: normal to inspection Ears: hearing grossly normal bilaterally Mouth: Yes Normal oral and palatal mucosa present Eyes: General: appearance normal, both eyes and all related structures Neck: Neck: normal visual inspection Chest: Chest palpation & inspection: normal inspection of the chest Resp: Effort & Inspection: normal respiratory effort Auscultation: crackles (right lung), no rales, no rhonchi and no wheezes Cardio: Jugular venous distension: no JVD GI: Inspection: normal to inspection Skin: General skin exam: normal color Neuro: General: oriented to person, oriented to place and oriented to time Extrem: General: normal to inspection Psych: Appearance: grossly normal Objective Data Vital Signs Vital Signs: Vital Signs - 24 hr 08/30/20 17:33 08/30/20 20:26 08/30/20 20:40 Temperature 36.4 C L Pulse Rate 91 78 88 Respiratory Rate 22 H 20 18 Blood Pressure 136/72 Pulse Oximetry 97 08/30/20 22:00 08/31/20 01:06 08/31/20 01:23 Temperature 36.7 C Pulse Rate 78 82 78 Respiratory Rate 16 20 20 Blood Pressure 137/70 Pulse Oximetry 95 08/31/20 06:00 08/31/20 08:35 08/31/20 08:37 Temperature 36.5 C Pulse Rate 84 83 Respiratory Rate 20 18 Blood Pressure 137/74 Pulse Oximetry 95 96 08/31/20 08:48 08/31/20 13:27 08/31/20 15:02 Temperature 36.4 C 36.1 C L Pulse Rate 80 86 84 Respiratory Rate 18 20 19 Blood Pressure 130/84 146/94 H Pulse Oximetry 97 100 08/31/20 15:12 08/31/20 15:22 08/31/20 15:32 Temperature Pulse Rate 94 84 84 Respiratory Rate 19 19 19 Blood Pressure 136/72 154/100 H 150/94 H Pulse Oximetry 100 98 97 Intak
--- NOTE | 2020-08-31 15:58 | SUR.PHASEII ---
Pt attempted to use urinal. Unable to void. Hematoma noted to left popliteal.
--- NOTE | 2020-08-31 16:05 | SUR.PHASEII ---
Radiology at bedside for x-ray.
--- NOTE | 2020-08-31 16:06 | SUR.PHASEII ---
Pt resting comfortably. No c/o pain. Abdomen rounded, but soft and nontender.
[2020-08-31] MEDS: ALBUTEROL SULFATE NEB 2.5 MG/3 ML INH 1.25 MG INHALATION (16:30)
--- NOTE | 2020-08-31 17:33 | SUR.PHASEII ---
Pt transferred to CT and X-ray. Floor RN updated.
--- NOTE | 2020-08-31 17:49 | PC.NURSE ---
Patient returned from GI lab per stretcher.
[2020-08-31] MEDS: PANTOPRAZOLE SODIUM IV 40 MG VIAL IV PUSH ×2 (17:51→20:38)
--- NOTE | 2020-08-31 17:58 | P.PNCROSS_ITS ---
Event Note Event Note Event Note: Patient with R sided pneumothorax and free air in the peritoneum. Discussed with Dr. Kat Logging Crew Foreman, Dr. Lang Int/CC. Transfer to ICU for close monitoring overnight.
--- NOTE | 2020-08-31 17:58 | SUR.PHASEII ---
1630 Dr. Day to see pt regarding PVC's and irregular heart rate. Compared to recent EKG. Ok to d/c from post-op.
--- NOTE | 2020-08-31 18:44 | PC.NURSE ---
This patient, Ebenezer Quijano, was transferred to [ ICU] on 08/31/20 at 1844. Personal belongings sent with patient. Report given to [Fariha ]. Appropriate documentation sent with patient.
--- NOTE | 2020-08-31 18:51 | PC.NURSE ---
1835-PATIENT TRANSFERRED TO BED ICU 8. PLACED ON O2 5L/NC. REVIEWED POLICIES AND CALL LIGHT. ALL QUESTIONS ANSWERED.
[2020-09-01] VITALS (24 sets, daily range): BP systolic 112–141; BP diastolic 59–95; PULSE 65–96; RESP 16–27; TEMP 36.3–36.8; O2SAT 95–100
[2020-09-01] MEDS: ALBUTEROL SULFATE NEB 2.5 MG/0.5 ML INH INHALATION ×6 (02:30→20:52)
[2020-09-01] MEDS: IPRATROPIUM BR 0.02% INH SOLN 0.5 MG/2.5 ML VIAL INHALATION ×6 (02:31→20:52)
[2020-09-01] MEDS: methylPREDNISolone SOD SUCC 40 MG VIAL 20 MG IV PUSH (05:07)
[2020-09-01 06:26] LABS: Basophils Percent Auto 0.1 % (0.2-1.2); Hematocrit 37.8 % (42.0-52.0); Hemoglobin 12.9 g/dL (14.0-18.0); Immature Granulocyte Absolute 0.12 K/mm3 (0.00-0.031); Lymphocytes Absolute Auto 0.32 K/mm3 (0.9-3.2); Lymphocytes Percent Auto 2.6 % (18.3-44.2); Mean Corpuscular HGB Conc 34.1 g/dl (32-36); Mean Corpuscular Hemoglobin 31.9 pg (26-34); Mean Corpuscular Volume 93.6 fl (80-100); Mean Platelet Volume 9.6 fl (7.4-10.4); Monocytes Absolute Auto 0.6 K/mm3 (0.1-0.6); Monocytes Percent Auto 4.8 % (2.6-8.5); Neutrophils Absolute Auto 11.3 K/mm3 (1.3-6.7); Neutrophils Percent Auto 91.5 % (45.5-73.1); Platelet Count Result 212 k/mm3 (150-375); Red Blood Count 4.04 M/mm3 (4.6-6.20); White Blood Count 12.3 K/mm3 (4.5-10.0)
[2020-09-01 06:36] LABS: INR 1.1; Partial Thromboplastin Time 21.7 SECONDS (22.3-36.8); Prothrombin Time 14.5 Seconds (11.1-14.7)
[2020-09-01 06:37] LABS: Anion Gap 4 mmol/L (8-16); Blood Urea Nitrogen 14 mg/dL (9-20); Calcium 7.7 mg/dL (8.4-10.2); Carbon Dioxide 28 mmol/L (22-30); Chloride 105 mmol/L (98-107); Estimated CRCL calculation 93 ml/min; Estimated Glomerular Filt Rate > 60; Glucose 167 mg/dL (75-110); Potassium 4.1 mmol/L (3.4-5.0); Sodium 137 mmol/L (137-145)
--- NOTE | 2020-09-01 07:16 | P.PNAN_ITS ---
Anes - Prog Note Post-Op Date/Time: 09/01/20 07:16 Cardiovascular status: normal Respiratory status: normal Airway patency: baseline Mental status: baseline Post-Op hydration status: normal Vital Signs: Last Vital Signs Temp 36.4 C 09/01/20 04:21 Pulse 81 09/01/20 06:00 Resp 19 09/01/20 06:00 BP 117/73 09/01/20 06:00 Pulse Ox 99 09/01/20 06:00 Pain Score (VAS): 0 I/O: Intake & Output 08/31/20 08/31/20 09/01/20 15:59 23:59 07:59 Intake Total 0 100 200 Output Total 100 1075 Balance 0 0 -875 Laboratory Tests 09/01/20 06:19 09/01/20 06:19 09/01/20 09/01/20 09/01/20 06:19 06:19 06:19 WBC 12.3 H RBC 4.04 L Hgb 12.9 L Hct 37.8 L MCV 93.6 MCH 31.9 MCHC 34.1 RDW 13.0 Plt Count 212 MPV 9.6 Immature Gran % (Auto) 1.0 H Neut % (Auto) 91.5 H Lymph % (Auto) 2.6 L [place] % (Auto) 4.8 Eos % (Auto) 0.0 Baso % (Auto) 0.1 L Lymph # (Auto) 0.32 L [place] # (Auto) 0.6 Eos # (Auto) 0.0 Baso # (Auto) 0.0 Abs Immat Gran (auto) 0.12 H Absolute Neuts (auto) 11.3 H Absolute Nucleated RBC 0.0 Nucleated RBC % 0.0 PT 14.5 INR 1.1 APTT 21.7 L Sodium 137 Potassium 4.1 Chloride 105 Carbon Dioxide 28 Anion Gap 4 L BUN 14 Creatinine 0.70 Estim Creat Clear Calc 93 Estimated GFR > 60 Glucose 167 H Calcium 7.7 L Post-procedural complaints: none Patient Feedback: Patient satisfied with anesthetic care.
[2020-09-01] MEDS: BUDESONIDE RESPULE NEB 0.5 MG/2 ML AMP INHALATION ×2 (07:58→20:52)
--- NOTE | 2020-09-01 08:22 | WPDCDIQUERY2 ---
CDI Query Clarification Request -Dr Reyes, you have documented likely type 2 PR secondary to PE . Please clarify/add supporting documentation for type 2 PR such as if the patient had chest pain, if there were new EKG changes, or if there is evidence of new loss of viable myocardium or new regional wall motion abnormality <Elaine Jones RN - Last Filed: 09/01/20 08:25> Clarified Diagnosis (1) Elevated troponin: Code(s): R77.8 - Other specified abnormalities of plasma proteins <Elaine Jones RN - Last Filed: 09/01/20 08:25> Status: Acute <Elaine Jones RN - Last Filed: 09/01/20 08:25> Assessment and Plan: Mild elevation secondary to PE and demand ischemia <Jazmin Reyes MD - Last Filed: 09/01/20 10:41> (2) Chest pain: Code(s): R07.9 - Chest pain, unspecified <Elaine Jones RN - Last Filed: 09/01/20 08:25> Status: Acute <Elaine Jones RN - Last Filed: 09/01/20 08:25> Assessment and Plan: Patient presented to ED with chest pain found to have acute PE but no ECG changes <Jazmin Reyes MD - Last Filed: 09/01/20 10:41>
[2020-09-01] MEDS: HEPARIN SOD/D5W 100 UNITS/ML 25,000 UNITS/250 ML BAG 15 UNITS IV CONT ×2 (08:39→23:30)
[2020-09-01] MEDS: PANTOPRAZOLE SODIUM IV 40 MG VIAL IV PUSH ×2 (08:41→21:10)
--- NOTE | 2020-09-01 08:56 | WPDCNINT ---
Assessment and Plan Assessment and plan (1) Pneumothorax of right lung after biopsy: Code(s): J95.811 - Postprocedural pneumothorax Status: Acute Assessment and Plan: Pneumothorax after lung biopsy -repeat chest x-ray this morning shows decreasing size of pneumothorax -pulmonology following -continue supplemental oxygen (2) COPD (chronic obstructive pulmonary disease) case management patient: Code(s): J44.9 - Chronic obstructive pulmonary disease, unspecified Status: Acute Assessment and Plan: COPD -Patient was on Solu-Medrol, supplemental oxygen -discussed with pulmonology, steroids will be discontinued -continue albuterol, budesonide and Atrovent (3) Pneumoperitoneum: Code(s): K66.8 - Other specified disorders of peritoneum Status: Acute Assessment and Plan: Pneumoperitoneum likely related to systemic steroid use, diverticulitis, small sigmoid perforation. 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 Cytology brushing also performed on the white pearly endobronchial mass -pathology pending -will have Oncology evaluate the patient once pathology is reported (5) Current every day nicotine vaping: Code(s): Z72.0 - Tobacco use Status: Acute Assessment and Plan: Have counseled patient for cessation of Vaping. He does acknowledge and comprehend that he needs to stop doing this and is going to try (6) History of tobacco abuse: Code(s): Z87.891 - Personal history of nicotine dependence Status: Acute Assessment and Plan: Patient has been a heavy smoker from the age of 23 to 62 years of age, 1.5 ppd. (7) Pulmonary embolism: Code(s): I26.99 - Other pulmonary embolism without acute cor pulmonale Status: Acute Assessment and Plan: Pulmonary embolism in the subsegmental branches of the right lower lobe, the lingula and the left lower lobe. -lower extremity venous Dopplers are negative -patient was on therapeutic Lovenox which was on hold for the bronchoscopy. -will start patient on heparin infusion (8) DVT prophylaxis: Code(s): Z29.9 - Encounter for prophylactic measures, unspecified Status: Acute Assessment and Plan: DVT prophylaxis: heparin infusion Stress ulcer prophylaxis: Protonix Additional Plan Discussed with patient updated with his condition and plan of care. I answered all questions. He is aware that he will be started on clear liquid diet. Patient was to leave the ICU and go back to his normal room Code status: Do not resuscitate Critical care time spent: 44 minutes This dictation may have been done utilizing a voice recognition system. Attempts have been made to correct errors. However, there may be uncorrected grammatical, spelling, and recognition errors present. Due to a high probability of clinically significant, life threatening deterioration, the patient required my highest level of preparedness to intervene emergently and I personally spent this critical care time directly and personally managing the patient. This critical care time included obtaining a history; examining the patient; pulse oximetry; ordering and review of studies; arranging urgent treatment with development of a management plan; evaluation of patient's response to treatment; frequent reassessment; and discussions with other providers. It was exclusive of separately billable procedures and treating other patients and teaching time. Please see Assessment and
--- NOTE | 2020-09-01 09:27 | PM.PNPUL ---
Progress Note: A&P Additional Plan Mass of lung: Code(s): R91.8 - Other nonspecific abnormal finding of lung field Status: Acute Assessment and Plan: 08/29 He has a right suprahilar mass 3 cm in size associated with mediastinal, hilar and subcarinal lymphadenopathy likely bronchogenic carcinoma. He has a right upper lobe 1.5 cm. He presented with pulmonary embolism and is currently on anticoagulation with Lovenox transitioning to an oral anticoagulant. He is clinically stable, normal hemodynamics, and may be able to have a bronchoscopy while he is here, before going home, holding the Lovenox for 12 hours before the procedure. 08/30 Will proceed with bronchoscpy and waiting to hear from scheduling for 08/31. I spoke with patient and he agrees. Last does of lovenox this morning. 08/31 bronchoscopy later today. 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 Await pathology. Paitnet iwth right pneumothorax and pneumoperitonium on post procedure CXR. CT scan with perforated divirticulum. He should have a PET scan after discharge. (2) Pulmonary emboli: Code(s): I26.99 - Other pulmonary embolism without acute cor pulmonale Status: Acute Assessment and Plan: 08/30 he has pulmonary emboli in the subsegmental branches in the right lower lobe, the lingula, and the left lower lobe. Lower extremity Dopplers are negativ on 08/29. He he is hemodynamically stable and on full dose Lovenox. Can transition to oral anticoagulant after bronchoscopy. Echo with no evidence of right heart strain or fluid overlaod. Pulmonary emboli may be paraneoplastic manifestation due to lung cancer. 08/31 Lovenox to restart tonight if no bleeding complications from bronchoscopy. Will need DOAC that he can afford. 09/01 No active bleeding and no plans for immediate surgery for divirticulum. Will start IV heparin drip. (3) COPD (chronic obstructive pulmonary disease) case management patient: Code(s): J44.9 - Chronic obstructive pulmonary disease, unspecified Status: Acute Assessment and Plan: Baseline he can walk 20-25 feet and stops for DAIGLE, mMRC grade 3.On albuterol inhaler PRN only. 08/29 He has COPD which was moderate in 2018, on no controller medications. He only uses a Proventil several times a day.with He needs Rx for COPD with [facility], and have out-patient PFTs, 6 min walk to evaluate his COPD and improve control of his lung function. 08/30 Currently on trelegy and albuterol and ipratripruium nebs. I will continue albuterol at 2.5 mg dose and ipratroprium 0.5 mg nebs and DC trelegy for now. I will change to solumedrol 20 Q 6 today. 08/31 Improved and breathing better than he has in a few years. Continue solumedrol today as NPO and getting bronchsocpy. Cotninue albuterol at 2.5 mg dose and ipratroprium 0.5 mg nebs Q 6 hours. 09/01 no wheezes. I will DC systemic steroids as performated divirticulum and try to manage iwth inhaled steroids and increasing albuterol and ipratroprium to Q 4. (4) History of tobacco abuse: Code(s): Z87.891 - Personal history of nicotine dependence Status: Acute Assessment and Plan: Smoked heavily until 7 years ago, age 23 to 62 at 1.5 PPD, 60 PY, also vapes. Needs to stop vaping. Subjective Date/time seen: 09/01/20 09:27 Interval history: Interval history: 08/29 NEW: Ebenezer Quijano is a 69 year old man seen in Room 202, Nori is present. He was admitted with increased shortness of breath, had a chest CTA showing PE in the subsegmental branches in the right lower lobe, the lingula, and the left lower lobe. He has a 3 cm right hilar mass, mediastinal lymphadenopathy concerning for primary bronchogenic carcinoma and metastatic
--- NOTE | 2020-09-01 10:27 | PM.CNGS ---
Assessment and Plan Assessment and plan (1) Pneumoperitoneum: Code(s): K66.8 - Other specified disorders of peritoneum Status: Acute Assessment and Plan: Found incidentally on the chest x-ray following bronchoscopy. The patient now reports having some left-sided abdominal pain, mostly in the LUQ, that started about 1 day prior to admission. This has since resolved and he is no longer complaining of any abdominal pain or any other abdominal complaints. CT scan of the chest, abdomen, and pelvis was reviewed and discussed with the patient in detail. This appears to be most likely from perforated sigmoid diverticulitis. The patient was being treated with steroids for his COPD, which could have caused some immunosuppression and contributed. Would agree with stopping the IV steroids for now. Clinically, the patient's abdominal exam is benign with no peritoneal signs. He is hemodynamically stable and does not appear septic. His white blood cell count is only mildly elevated. We would recommend treating him with conservative measures for now, including broad-spectrum IV antibiotics, IV fluids, and close monitoring. We will allow him to have clear liquids today and see how he tolerates this. We will continue with serial abdominal exams and trend labs. With his acute issues, pulmonary status, and his history, the patient would be a high risk surgical candidate. I discussed with the patient that if he deteriorates or develops more abdominal pain, then we may need to consider urgent surgical intervention at that time. Thank you for allowing us to see the patient in consultation and we will continue to follow along with you. (2) Perforation of sigmoid colon due to diverticulitis: Code(s): K57.20 - Diverticulitis of large intestine with perforation and abscess without bleeding Status: Acute Assessment and Plan: See plan above. (3) Pneumothorax of right lung after biopsy: Code(s): J95.811 - Postprocedural pneumothorax Status: Acute Assessment and Plan: Right pneumothorax following bronchoscopy with biopsy. He was intubated by anesthesia for the procedure. The pneumothorax has been followed with serial chest x-rays and has improved without requiring chest tube insertion. Patient appears stable and is on 3L O2 this morning. He is not complaining of any chest pain and reports his shortness of breath has improved. Will continue to monitor the pneumothorax with serial imaging and close monitoring. Will initiate and encourage IS use. If the pneumothorax increases in size or he decompensates, then we will have to consider chest tube insertion. (4) Pulmonary embolism: Code(s): I26.99 - Other pulmonary embolism without acute cor pulmonale Status: Acute Assessment and Plan: 08/28/20 CTA chest showed pulmonary emboli in the lower lobes and lingula. Currently on a Heparin drip. Would continue this for now while monitoring the patient, in case of the need for unexpected surgical intervention. (5) Lung mass: Code(s): R91.8 - Other nonspecific abnormal finding of lung field Status: Acute Assessment and Plan: CTA chest with findings of right suprahilar mass with mediastinal lymphadenopathy concerning for primary bronchogenic carcinoma and metastatic lymphadenopathy. Indeterminate nodules in the right upper lobe which could reflect metastatic disease versus infection/inflammation. S/p bronchoscopy with biopsy and brushings on 08/31/20. Pulmonology following. (6) COPD (chronic obstructive pulmonary disease) case management patient: Code(s): J44.9 - Chronic obstructive pulmonary disease, unspecified Status: Acute (7) Current every day nicotine vaping: Code(s): Z72.0 - Tobacco use Status: Acute Additional Plan I have discussed the patient's case and plan of care with Dr. Corona. History of Present Illness Consult details Consult date: 09/01/20 Reason for consult: other
--- NOTE | 2020-09-01 12:40 | PM.IMPN ---
Progress Note: A&P Assessment and Plan (1) Pneumothorax of right lung after biopsy: Code(s): J95.811 - Postprocedural pneumothorax Status: Acute Assessment and Plan: A status post bronchoscopy Repeat chest x-ray shows decrease in size Supportive care (2) COPD (chronic obstructive pulmonary disease) case management patient: Code(s): J44.9 - Chronic obstructive pulmonary disease, unspecified Status: Acute Assessment and Plan: Systemic steroid has been discontinued Continue breathing treatment Appreciate pulmonology note (3) Pneumoperitoneum: Code(s): K66.8 - Other specified disorders of peritoneum Status: Acute Assessment and Plan: CT of abdomen and pelvis showed a perforated diverticulum Medical management Appreciate surgery note (4) Perforation of sigmoid colon due to diverticulitis: Code(s): K57.20 - Diverticulitis of large intestine with perforation and abscess without bleeding Status: Acute Assessment and Plan: Supportive care Continue antibiotics (5) Pulmonary embolism: Code(s): I26.99 - Other pulmonary embolism without acute cor pulmonale Status: Acute Assessment and Plan: On heparin drip Continue to monitor (6) Lung mass: Code(s): R91.8 - Other nonspecific abnormal finding of lung field Status: Acute Assessment and Plan: Awaiting biopsy results a status post bronchoscopy with biopsy (7) Current every day nicotine vaping: Code(s): Z72.0 - Tobacco use Status: Acute Assessment and Plan: Encouraged cessation (8) Asthma exacerbation in COPD: Code(s): J44.1 - Chronic obstructive pulmonary disease with (acute) exacerbation; J45.901 - Unspecified asthma with (acute) exacerbation Status: Acute Assessment and Plan: Improved Continue breathing treatments (9) History of tobacco abuse: Code(s): Z87.891 - Personal history of nicotine dependence Status: Acute Assessment and Plan: Unchanged (10) Elevated troponin: Code(s): R77.8 - Other specified abnormalities of plasma proteins Status: Acute Assessment and Plan: Doubtful of acute coronary syndrome Likely to be type 2 OR due to pulmonary embolism however echocardiogram known supportive of heavy clot burden or right ventricular strain most likely to be nonischemic myocardial injury. Subjective Date/time seen: 09/01/20 12:40 I feel well. Review of Systems Review of Systems: Narrative: Patient denies any discomfort at the present time Exam Narrative: Exam Narrative: Sitting by the edge of the bed Const: General: comfortable, no acute distress, well developed, alert and awake Nutritional Appearance: average body habitus Orientation/consciousness: patient oriented x3 HENMT: Head: normal to inspection, normocephalic and atraumatic Ears: hearing grossly normal bilaterally Face and sinus: normal facial exam Eyes: General: appearance normal, both eyes and all related structures Pupils: Equal, round and reactive pupils present EOM: EOMs intact bilaterally Neck: Neck: full ROM, no lymphadenopathy and no JVD Thyroid: thyroid normal Lymphatic: no lymphadenopathy noted Resp: Effort & Inspection: normal respiratory effort and able to speak in complete sentences Auscultation: clear to auscultation bilaterally Cardio: Jugular venous distension: no JVD Rate: regular rate Rhythm: regular rhythm Heart sounds: S1 normal heart sound present and S2 normal heart sound present GI: GI Palp: Yes Soft to palpation and Yes No hepatosplenomegaly present : General: Yes deferred Skin: Rashes: no rashes Wounds: no wounds Neuro: General: patient oriented x3 and CN's II-XI intact bilaterally Cranial nerves: Yes CN's II-XII intact bilaterally and Yes Equal, round and reactive pupils present Cognition (Neuro): normal cognition Speech: normal speech Gait exam (Neuro): Normal gait present
[2020-09-01 15:00] LABS: Partial Thromboplastin Time 68.1 SECONDS (22.3-36.8)
[2020-09-01] MEDS: HEPARIN SODIUM 5,000 UNITS/ML VIAL 3500 UNITS IV PUSH (15:05)
[2020-09-01 21:40] LABS: Partial Thromboplastin Time 154.6 SECONDS (22.3-36.8)
[2020-09-02] VITALS (20 sets, daily range): BP systolic 109–118; BP diastolic 53–70; PULSE 66–89; RESP 18–22; TEMP 36.2–36.9; O2SAT 94–100
[2020-09-02] MEDS: IPRATROPIUM BR 0.02% INH SOLN 0.5 MG/2.5 ML VIAL INHALATION ×6 (00:53→20:49)
[2020-09-02] MEDS: ALBUTEROL SULFATE NEB 2.5 MG/0.5 ML INH INHALATION ×6 (00:53→20:48)
[2020-09-02 04:51] LABS: Basophils Percent Auto 0.1 % (0.2-1.2); Eosinophils Percent Auto 0.1 % (0-4.4); Hematocrit 40.3 % (42.0-52.0); Hemoglobin 13.5 g/dL (14.0-18.0); Immature Granulocyte Absolute 0.08 K/mm3 (0.00-0.031); Immature Granulocyte Percent A 0.9 % (0-0.5); Mean Corpuscular HGB Conc 33.5 g/dl (32-36); Mean Corpuscular Hemoglobin 31.2 pg (26-34); Mean Corpuscular Volume 93.1 fl (80-100); Mean Platelet Volume 9.7 fl (7.4-10.4); Monocytes Absolute Auto 0.4 K/mm3 (0.1-0.6); Monocytes Percent Auto 5.1 % (2.6-8.5); Neutrophils Absolute Auto 7.4 K/mm3 (1.3-6.7); Neutrophils Percent Auto 86.8 % (45.5-73.1); Platelet Count Result 206 k/mm3 (150-375); Red Blood Count 4.33 M/mm3 (4.6-6.20); Red Cell Distribution Width 12.9 % (11.5-14.5); White Blood Count 8.6 K/mm3 (4.5-10.0)
[2020-09-02 05:01] LABS: Partial Thromboplastin Time 112.3 SECONDS (22.3-36.8)
[2020-09-02 05:05] LABS: Anion Gap 1 mmol/L (8-16); Blood Urea Nitrogen 13 mg/dL (9-20); Calcium 7.4 mg/dL (8.4-10.2); Carbon Dioxide 31 mmol/L (22-30); Chloride 103 mmol/L (98-107); Estimated CRCL calculation 74 ml/min; Estimated Glomerular Filt Rate > 60; Glucose 133 mg/dL (75-110); Potassium 3.1 mmol/L (3.4-5.0); Sodium 135 mmol/L (137-145)
[2020-09-02] MEDS: PANTOPRAZOLE SODIUM IV 40 MG VIAL IV PUSH ×2 (07:28→20:09)
[2020-09-02] MEDS: BUDESONIDE RESPULE NEB 0.5 MG/2 ML AMP INHALATION (07:37)
--- NOTE | 2020-09-02 09:25 | PM.PNPUL ---
Progress Note: A&P Assessment and Plan (1) Lung mass: Code(s): R91.8 - Other nonspecific abnormal finding of lung field Status: Acute Assessment and Plan: 08/29 He has a right suprahilar mass 3 cm in size associated with mediastinal, hilar and subcarinal lymphadenopathy likely bronchogenic carcinoma. He has a right upper lobe 1.5 cm. He presented with pulmonary embolism and is currently on anticoagulation with Lovenox transitioning to an oral anticoagulant. He is clinically stable, normal hemodynamics, and may be able to have a bronchoscopy while he is here, before going home, holding the Lovenox for 12 hours before the procedure. 08/30 Will proceed with bronchoscpy and waiting to hear from scheduling for 08/31. I spoke with patient and he agrees. Last does of lovenox this morning. 08/31 bronchoscopy later today. 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 Await pathology. Paitnet iwth right pneumothorax and pneumoperitonium on post procedure CXR. CT scan with perforated divirticulum. 09/01 Await pathology 09/02 await pathology He should have a PET scan after discharge. (2) Pulmonary embolism: Code(s): I26.99 - Other pulmonary embolism without acute cor pulmonale Status: Acute Assessment and Plan: 08/30 he has pulmonary emboli in the subsegmental branches in the right lower lobe, the lingula, and the left lower lobe. Lower extremity Dopplers are negativ on 08/29. He he is hemodynamically stable and on full dose Lovenox. Can transition to oral anticoagulant after bronchoscopy. Echo with no evidence of right heart strain or fluid overlaod. Pulmonary emboli may be paraneoplastic manifestation due to lung cancer. 08/31 Lovenox to restart tonight if no bleeding complications from bronchoscopy. Will need DOAC that he can afford. 09/01 No active bleeding and no plans for immediate surgery for divirticulum. Will start IV heparin drip. 09/02 IV heparin drip with PTT 112, restart lovenox 80 when OK with surgery. (3) COPD (chronic obstructive pulmonary disease) case management patient: Code(s): J44.9 - Chronic obstructive pulmonary disease, unspecified Status: Acute Assessment and Plan: Smoked heavily until 7 years ago, age 23 to 62 at 1.5 PPD, 60 PY, also vapes. Baseline he can walk 20-25 feet and stops for DAIGLE, mMRC grade 3.On albuterol inhaler PRN only. 08/29 He has COPD which was moderate in 2018, on no controller medications. He only uses a Proventil several times a day.with He needs Rx for COPD with Anoro, and have out-patient PFTs, 6 min walk to evaluate his COPD and improve control of his lung function. 08/30 Currently on trelegy and albuterol and ipratripruium nebs. I will continue albuterol at 2.5 mg dose and ipratroprium 0.5 mg nebs and DC trelegy for now. I will change to solumedrol 20 Q 6 today. 08/31 Improved and breathing better than he has in a few years. Continue solumedrol today as NPO and getting bronchsocpy. Cotninue albuterol at 2.5 mg dose and ipratroprium 0.5 mg nebs Q 6 hours. 09/01 no wheezes. I will DC systemic steroids as performated divirticulum and try to manage iwth inhaled steroids and increasing albuterol and ipratroprium to Q 4. 09/02 Wheezes today, will increase inhaled budesonide to 1 mg Q 12. Will try to manage off systemic steroids as has perforated bowel. (4) Perforation of sigmoid colon due to diverticulitis: Code(s): K57.20 - Diverticulitis of large intestine with perforation and abscess without bleeding Status: Acute Assessment and Plan: 09/01 hemodynmically stable, Zosyn, clears, surgery managing 09/02 tolerating clears. Surgery following. Subjective Date/time seen: 09/02/20 09:25 Interval history: Interval history: 08/29 NEW: Ebenezer Quijano is a 69 year old man seen in Room 202, Nori is present. He was admitted with increased shortness of breath, had a chest CTA praneeth
--- NOTE | 2020-09-02 11:08 | PM.PNGS ---
Progress Note: A&P Assessment and Plan (1) Pneumoperitoneum: Code(s): K66.8 - Other specified disorders of peritoneum Status: Acute Assessment and Plan: Found incidentally on the chest x-ray following bronchoscopy. Central likely to be due to perforated sigmoid diverticulitis. WBC normal today and he remains afebrile. Still hemodynamically stable. The patient is more tender on exam today and now having some mild abdominal pain. Discussed the case with Dr. Carver and we would recommend to continue anticoagulating the patient with the Heparin drip again for today while monitoring him. No plans for surgical intervention right now, but he is more tender and now having some abdominal pain. Pulmonology felt it was reasonable to continue to hold his IV steroids, which we would agree with. Will keep him on clear liquids for today and continue to monitor closely. Repeat labs tomorrow. (2) Perforation of sigmoid colon due to diverticulitis: Code(s): K57.20 - Diverticulitis of large intestine with perforation and abscess without bleeding Status: Acute Assessment and Plan: See plan above. (3) Pneumothorax of right lung after biopsy: Code(s): J95.811 - Postprocedural pneumothorax Status: Acute Assessment and Plan: Chest x-ray this morning showed the right pneumothorax was unchanged. Continue with conservative measures and monitoring. Repeat chest x-ray tomorrow. (4) Pulmonary embolism: Code(s): I26.99 - Other pulmonary embolism without acute cor pulmonale Status: Acute Assessment and Plan: 08/28/20 CTA chest showed pulmonary emboli in the lower lobes and lingula. Currently on a Heparin drip. Would continue this again for today while monitoring the patient, in case of the need for surgical intervention. (5) Lung mass: Code(s): R91.8 - Other nonspecific abnormal finding of lung field Status: Acute Assessment and Plan: CTA chest with findings of right suprahilar mass with mediastinal lymphadenopathy concerning for primary bronchogenic carcinoma and metastatic lymphadenopathy. Indeterminate nodules in the right upper lobe which could reflect metastatic disease versus infection/inflammation. S/p bronchoscopy with biopsy and brushings on 08/31/20. Pathology pending. Pulmonology following. (6) COPD (chronic obstructive pulmonary disease) case management patient: Code(s): J44.9 - Chronic obstructive pulmonary disease, unspecified Status: Acute (7) Current every day nicotine vaping: Code(s): Z72.0 - Tobacco use Status: Acute Additional Plan I have discussed the patient's case and plan of care with Dr. Corona. Subjective Subjective Date/Time Seen: 09/02/20 09:08 Patient reports: tolerating liquids well, flatus, bowel movement and afebrile Interval history: Patient seen today and is now complaining of mild abdominal pain overnight. He denies any abdominal pain this morning at the time of my exam, but says it has been off and on. He points to the upper central abdomen when describing his pain. No nausea or vomiting. Reports flatus and BM overnight. No other complaints at this time. Review of Systems Review of Systems: All systems reviewed & are unremarkable except as noted in HPI and below Constitutional: Constitutional: Denies chills and Denies fever(s) Respiratory: Respiratory: Reports no additional respiratory complaints Comments: Shortness of breath improved. Exam Const: General: comfortable, no acute distress, alert and awake Resp: Effort & Inspection: no respiratory distress Auscultation: wheezes expiratory wheezes and inspiratory wheezes Cardio: Rate: regular rate Rhythm: regular rhythm GI: Inspection: no visible herniation and other (mildly distended) GI Palp: Yes Soft to palpation, Yes Tenderness to palpation present (GI) (diffusely tender, worse in LLQ), Yes Guarding due to palpation present (GI) (LLQ) and
--- NOTE | 2020-09-02 12:17 | PC.NURSE ---
patient transferring to room 312 at this time. report received by Vale HIGHTOWER
--- NOTE | 2020-09-02 12:24 | PC.NURSE ---
Patient transferred to [facility] at 1220, report given to Zuri HIGHTOWER. Patient traveled via bed with nasal cannula on and heparin gtt running.
[2020-09-02 13:03] LABS: Partial Thromboplastin Time 67.5 SECONDS (22.3-36.8)
[2020-09-02] MEDS: HEPARIN SOD/D5W 100 UNITS/ML 25,000 UNITS/250 ML BAG 15 UNITS IV CONT (13:33)
[2020-09-02] MEDS: HEPARIN SODIUM 5,000 UNITS/ML VIAL 3500 UNITS IV PUSH (13:33)
--- NOTE | 2020-09-02 14:28 | PM.IMPN ---
Progress Note: A&P Assessment and Plan (1) Perforation of sigmoid colon due to diverticulitis: Code(s): K57.20 - Diverticulitis of large intestine with perforation and abscess without bleeding Status: Acute Assessment and Plan: patient having some tenderness of his abdomen today will continue with clear liquid diet continue to monitor appreciate surgery note (2) Pulmonary embolism: Code(s): I26.99 - Other pulmonary embolism without acute cor pulmonale Status: Acute Assessment and Plan: continue heparin drip (3) Lung mass: Code(s): R91.8 - Other nonspecific abnormal finding of lung field Status: Acute Assessment and Plan: likely to be squamous cell carcinoma awaiting biopsy results appreciate risk control manager note (4) Pneumoperitoneum: Code(s): K66.8 - Other specified disorders of peritoneum Status: Acute Assessment and Plan: secondary to perforated sigmoid colon continue medical management at the moment continue to monitor (5) Pneumothorax of right lung after biopsy: Code(s): J95.811 - Postprocedural pneumothorax Status: Acute Assessment and Plan: stable repeat chest x-ray shows near resolution (6) Current every day nicotine vaping: Code(s): Z72.0 - Tobacco use Status: Acute Assessment and Plan: nicotine patch as needed (7) Elevated troponin: Code(s): R77.8 - Other specified abnormalities of plasma proteins Status: Acute Assessment and Plan: likely to be no myocardial ischemia (8) Asthma exacerbation in COPD: Code(s): J44.1 - Chronic obstructive pulmonary disease with (acute) exacerbation; J45.901 - Unspecified asthma with (acute) exacerbation Status: Acute Assessment and Plan: continue breathing treatments systemic steroids have been discontinued Subjective Date/time seen: 09/02/20 14:28 states that he feels fine Review of Systems Review of Systems: Narrative: patient denies any issues currently Constitutional: Comments: no fevers no rigors no chest ENT: Comments: no earache no sore throat no nasal congestion Cardiovascular: Comments: no chest pain no PND no orthopnea Respiratory: Comments: no shortness of breath no cough no sputum production Gastrointestinal: Comments: abdominal pain Musculoskeletal: Comments: no muscle aches or joint pain Integumentary/Breasts: Comments: no rashes Neurologic: Comments: no sensorimotor deficit Exam Narrative: Exam Narrative: patient is lying in bed Const: General: comfortable, no acute distress, well developed, alert, awake and ill appearing chronically Nutritional Appearance: average body habitus and thin Orientation/consciousness: patient oriented x3 HENMT: Head: normal to inspection, normocephalic and atraumatic Ears: hearing grossly normal bilaterally Face and sinus: normal facial exam Eyes: General: appearance normal, both eyes and all related structures Pupils: Equal, round and reactive pupils present EOM: EOMs intact bilaterally Neck: Neck: full ROM, no lymphadenopathy and no JVD Thyroid: thyroid normal Lymphatic: no lymphadenopathy noted Resp: Effort & Inspection: normal respiratory effort and able to speak in complete sentences Auscultation: wheezes inspiratory wheezes and throughout Cardio: Jugular venous distension: no JVD Rate: regular rate Rhythm: regular rhythm Heart sounds: S1 normal heart sound present and S2 normal heart sound present GI: GI Palp: Yes Soft to palpation, Yes Tenderness to palpation present (GI) ( diffusely), Yes No hepatosplenomegaly present and Yes Other GI palpation findings present ( no rebound tenderness) : General: Yes deferred Skin: Rashes: no rashes Wounds: no wounds Neuro: General: patient oriented x3 and CN's II-XI intact bilaterally Cranial nerves: Yes CN's II-XII intact bilaterally and Yes Equal, round and reactive pupi
[2020-09-02 19:35] LABS: Partial Thromboplastin Time 121.4 SECONDS (22.3-36.8)
[2020-09-02] MEDS: BUDESONIDE RESPULE NEB 0.5 MG/2 ML AMP 1 MG INHALATION (20:49)
[2020-09-03] VITALS (18 sets, daily range): BP systolic 113–123; BP diastolic 54–61; PULSE 67–84; RESP 16–22; TEMP 36.1–37; O2SAT 94–99; BMI 23.2
[2020-09-03] MEDS: IPRATROPIUM BR 0.02% INH SOLN 0.5 MG/2.5 ML VIAL INHALATION ×5 (00:07→20:59)
[2020-09-03] MEDS: ALBUTEROL SULFATE NEB 2.5 MG/0.5 ML INH INHALATION ×5 (00:07→20:59)
[2020-09-03 01:52] LABS: Partial Thromboplastin Time 76.8 SECONDS (22.3-36.8)
[2020-09-03 07:37] LABS: Basophils Percent Auto 0.2 % (0.2-1.2); Eosinophils Absolute Auto 0.1 K/mm3 (0-0.3); Hematocrit 37.1 % (42.0-52.0); Hemoglobin 12.5 g/dL (14.0-18.0); Immature Granulocyte Absolute 0.12 K/mm3 (0.00-0.031); Immature Granulocyte Percent A 1.8 % (0-0.5); Lymphocytes Absolute Auto 0.51 K/mm3 (0.9-3.2); Lymphocytes Percent Auto 7.7 % (18.3-44.2); Mean Corpuscular HGB Conc 33.7 g/dl (32-36); Mean Corpuscular Hemoglobin 31.1 pg (26-34); Mean Corpuscular Volume 92.3 fl (80-100); Mean Platelet Volume 9.7 fl (7.4-10.4); Monocytes Absolute Auto 0.4 K/mm3 (0.1-0.6); Monocytes Percent Auto 5.3 % (2.6-8.5); Neutrophils Absolute Auto 5.5 K/mm3 (1.3-6.7); Platelet Count Result 195 k/mm3 (150-375); Red Blood Count 4.02 M/mm3 (4.6-6.20); White Blood Count 6.6 K/mm3 (4.5-10.0)
[2020-09-03 07:38] LABS: Anion Gap 4 mmol/L (8-16); Blood Urea Nitrogen 9 mg/dL (9-20); Calcium 7.4 mg/dL (8.4-10.2); Carbon Dioxide 29 mmol/L (22-30); Chloride 101 mmol/L (98-107); Estimated CRCL calculation 82 ml/min; Estimated Glomerular Filt Rate > 60; Glucose 139 mg/dL (75-110); Sodium 134 mmol/L (137-145)
--- NOTE | 2020-09-03 07:42 | PC.NURSE ---
to xray per w/c
[2020-09-03 08:00] LABS: Partial Thromboplastin Time 90.8 SECONDS (22.3-36.8)
--- NOTE | 2020-09-03 08:16 | PC.NURSE ---
patient returned to room from xray
--- NOTE | 2020-09-03 08:25 | PM.PNPUL ---
Progress Note: A&P Assessment and Plan (1) Lung mass: Code(s): R91.8 - Other nonspecific abnormal finding of lung field Status: Acute Assessment and Plan: 08/29 He has a right suprahilar mass 3 cm in size associated with mediastinal, hilar and subcarinal lymphadenopathy likely bronchogenic carcinoma. He has a right upper lobe 1.5 cm. He presented with pulmonary embolism and is currently on anticoagulation with Lovenox transitioning to an oral anticoagulant. He is clinically stable, normal hemodynamics, and may be able to have a bronchoscopy while he is here, before going home, holding the Lovenox for 12 hours before the procedure. 08/30 Will proceed with bronchoscpy and waiting to hear from scheduling for 08/31. I spoke with patient and he agrees. Last does of lovenox this morning. 08/31 bronchoscopy later today. 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 Await pathology. Paitnet iwth right pneumothorax and pneumoperitonium on post procedure CXR. CT scan with perforated divirticulum. 09/01 Await pathology 09/02 await pathology. later in day I spoke with the pathologist regarding patient's bronchoscopy specimens. 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 I reviewed these results with the patient and informed him that we would have an oncologist speak with him to give him treatment options. Oncology consulted. 09/03 right pneumothorax resolved on todays CXR. (2) Pulmonary embolism: Code(s): I26.99 - Other pulmonary embolism without acute cor pulmonale Status: Acute Assessment and Plan: 08/30 he has pulmonary emboli in the subsegmental branches in the right lower lobe, the lingula, and the left lower lobe. Lower extremity Dopplers are negativ on 08/29. He he is hemodynamically stable and on full dose Lovenox. Can transition to oral anticoagulant after bronchoscopy. Echo with no evidence of right heart strain or fluid overlaod. Pulmonary emboli may be paraneoplastic manifestation due to lung cancer. 08/31 Lovenox to restart tonight if no bleeding complications from bronchoscopy. Will need DOAC that he can afford. 09/01 No active bleeding and no plans for immediate surgery for divirticulum. Will start IV heparin drip. 09/02 IV heparin drip with PTT 112, 09/03 IV heparin drip with PTT 76.8, restart lovenox 80 Q12 when OK with surgery. (3) COPD (chronic obstructive pulmonary disease) case management patient: Code(s): J44.9 - Chronic obstructive pulmonary disease, unspecified Status: Acute Assessment and Plan: Smoked heavily until 7 years ago, age 23 to 62 at 1.5 PPD, 59 PY, also vapes. Baseline he can walk 20-25 feet and stops for DAIGLE, mMRC grade 3.On albuterol inhaler PRN only. 08/29 He has COPD which was moderate in 2018, on no controller medications. He only uses a Proventil several times a day.with He needs Rx for COPD with Anoro, and have out-patient PFTs, 6 min walk to evaluate his COPD and improve control of his lung function. 08/30 Currently on trelegy and albuterol and ipratripruium nebs. I will continue albuterol at 2.5 mg dose and ipratroprium 0.5 mg nebs and DC trelegy for now. I will change to solumedrol 20 Q 6 today. 08/31 Improved and breathing better than he has in a few years. Continue solumedrol today as NPO and getting bronchsocpy. Cotninue albuterol at 2.5 mg dose and ipratroprium 0.5 mg nebs Q 6 hours. 09/01 no wheezes. I will DC systemic steroids as performated divirticulum and try to manage iwt
[2020-09-03] MEDS: HEPARIN SOD/D5W 100 UNITS/ML 25,000 UNITS/250 ML BAG 13 UNITS IV CONT (09:03)
[2020-09-03] MEDS: PANTOPRAZOLE SODIUM IV 40 MG VIAL IV PUSH ×2 (09:07→20:46)
--- NOTE | 2020-09-03 11:45 | PM.PNGS ---
Progress Note: A&P Assessment and Plan (1) Lung mass: Code(s): R91.8 - Other nonspecific abnormal finding of lung field Status: Acute Assessment and Plan: Pathology came back on this showing squamous cell carcinoma. (2) Perforation of sigmoid colon due to diverticulitis: Onset Date: ~08/30/20 Code(s): K57.20 - Diverticulitis of large intestine with perforation and abscess without bleeding Status: Acute Assessment and Plan: This is suspected by a CT scan done several days ago. The patient appeared to have some free air at that time. Today's abdominal film shows some free air again which may just be moving around the abdomen. Patient's symptoms have not changed he is afebrile and his white count is normal. We will continue treating this with IV antibiotics. If pulmonary wishes probably could go ahead and use oral anticoagulation at this time since we are not planning to do any surgical intervention. If the patient's white blood cell count goes up or be starts running a fever over the weekend we may need to repeat a CT scan of the abdomen and pelvis. If he is a candidate for discharge in the next few days will need to consider a 1 week course of further oral antibiotics which would cover for bacteria related to diverticulitis. Follow-up CT scan of the abd and pelvis in about 2 weeks would be recommended if patient does well and has no real other symptoms. Subjective Subjective Date/Time Seen: 09/03/20 10:45 Patient feels okay today. He is laying in bed when I saw him. He denies abdominal pain. Although there was as bowel movement that was documented by the nurses for yesterday he denies having a bowel movement yesterday or yet this morning. He is passing some flatus. He has been up walking in the room with PT today already. Review of Systems Review of Systems: All systems reviewed & are unremarkable except as noted in HPI and below Constitutional: Constitutional: Reports as per HPI, Denies chills, Denies fatigue and Denies fever(s) Eyes: Eyes: Reports no additional eye complaints and Denies change in vision ENT: Reports system reviewed and no additional complaints, except as documented and Denies dizziness Cardiovascular: Cardiovascular: Reports no additional cardiovascular complaints, Denies chest pain, Denies leg edema and Reports dyspnea Respiratory: Respiratory: Reports no additional respiratory complaints, Reports cough and Reports dyspnea Gastrointestinal: Gastrointestinal: Reports as per HPI, Reports no additional gastrointestinal complaints, Reports abdominal pain (Left-sided, prior to admission, resolved), Denies melena, Denies bloating, Denies hematochezia, Denies change in bowel habits, Denies change in stool character, Denies diarrhea, Denies nausea and Denies vomiting Comments: States he is hungry. Genitourinary: Genitourinary: Denies hematuria and Denies dysuria Musculoskeletal: Musculoskeletal: Denies abnormal gait, Denies deformity, Denies joint swelling, Denies numbness and Denies tingling Integumentary/Breasts: Skin/Breast: Denies wounds and Denies jaundice Neurologic: Reports system reviewed and no additional complaints, except as documented, Denies abnormal gait, Denies dizziness, Denies focal weakness, Denies numbness and Denies tingling Psychiatric: Psychiatric: Denies anxiety and Denies depression Endocrine: Endocrine: Denies fatigue Hematologic/Lymphatic: Comments: WBC normal today. H&H okay. Exam Const: General: cooperative, comfortable, no acute distress, alert and awake Nutritional Appearance: average body habitus Orientation/consciousness: patient oriented x3 HENMT: Head: normocephalic and atraumatic Ears: hearing grossly normal bilaterally and external ears normal Mouth: Yes moist mucous membranes Eyes: General: appearance normal, both eyes and all related structures Sclera: sclerae normal EOM: EOMs intact bilaterally Neck: Neck
--- NOTE | 2020-09-03 12:45 | PDONCCN ---
HPI - Date of Consult Date/Time: 09/03/20 12:45 Requesting Physician: Carlo Quick MD Primary Care Provider: Rosalino Olmedo, - Consult Narrative Reason for consult: Non-small cell lung cancer Narrative: Ebenezer Quijano is a 69 year old male with history of smoking 1 pack per day for 40 years duration quit about 7 years ago came into the hospital with left lower chest wall pain. His pain was worse with the movement in the coughing. Patient was also complaining of some shortness of breath without any hemoptysis. CT scan showed no evidence of pulmonary embolism but there was a right suprahilar mass with mediastinal lymphadenopathy concerning for primary bronchogenic carcinoma. Patient had bronchoscopy and biopsy was done on August 31, 2020. Pathology showed squamous cell carcinoma from the right bronchus as well as in distal right paratracheal and proximal right paratracheal aspirate positive for squamous cell carcinoma. CT chest abdomen and pelvis was done that showed 1.2 cm right upper lobe mass with metastatic right hilar and mediastinal lymphadenopathy. There was no evidence of metastatic disease elsewhere. Review of Systems - Review of Systems All systems reviewed & are unremarkable except as noted in HPI and bel - Neurologic Reports system reviewed and no additional complaints, except as documented, Reports behavioral changes, Denies abnormal speech, Denies abnormal gait, Denies confusion, Denies headache(s), Denies focal weakness, Denies loss of vision, Denies numbness, Denies other visual disturbances, Denies sensory deficit, Denies tingling, Denies weakness PMF Medical History: Medical History (Last Reviewed 09/01/20 @ 10:53 by GRECIA Kearney) COPD (chronic obstructive pulmonary disease) case management patient History of tobacco abuse Surgical History: Surgical History (Last Reviewed 09/01/20 @ 10:53 by GRECIA Kearney) No history of previous surgery Family History: Family History (Last Reviewed 09/01/20 @ 10:53 by GRECIA Kearney) Father Cancer Mother No problems noted. Other Unknown family medical history - Social History Social History: Social History (Last Reviewed 09/01/20 @ 10:53 by GRECIA Kearney) Alcohol Use: Alcohol intake: current Drinks per week: 2 Substance Use: Substance use: never Others: Spiritual care concerns: No Smoking Status: Smoking status: Former smoker Approximate Smoking End Date: 2013 Meds Home Medications Medication Instructions Recorded Confirmed Type albuterol sulfate [Ventolin HFA] 4 puff INHALATION QID PRN 08/28/20 08/28/20 History Allergies Allergy/AdvReac Type Severity Reaction Status Date / Time No Known Allergies Allergy Verified 08/31/20 13:25 Results - Labs CBC & Chem 7: 09/03/20 07:21 09/03/20 07:21 Labs: Short CBC 09/03/20 Range/Units 07:21 WBC 6.6 (4.5-10.0) K/mm3 Hgb 12.5 L (14.0-18.0) g/dL Hct 37.1 L (42.0-52.0) % Plt Count 195 (150-375) k/mm3 BMP 09/03/20 07:21 Sodium 134 L Potassium 3.0 L Chloride 101 Carbon Dioxide 29 BUN 9 Creatinine 0.80 Glucose 139 H Calcium 7.4 L Assessment and Plan - Additional Plan Non-small cell lung cancer squamous cell histology status post bronchoscopy and biopsy. Prior to that patient has had CT scan chest abdomen pelvis done that showed 1.2 cm mass in the right upper lobe with metastatic right hilar and mediastinal lymphadenopathy without any evidence of metastatic disease in the abdomen. Stage III a disease. I have discussed treatment med plan for stage IIIA disease that includes concurrent chemoradiation therapy. I would propose chemotherapy with carboplatin and weekly Taxol while on the radiation therapy. Patient will also be referred to Dr. Perez for radiation therapy consultation. I recommended MediPort placement. Patient would like to di
--- NOTE | 2020-09-03 15:27 | PM.IMPN ---
Progress Note: A&P Assessment and Plan (1) Lung mass: Code(s): R91.8 - Other nonspecific abnormal finding of lung field Status: Acute Assessment and Plan: NON SMALL CELL LUNG CA PER BIOPSY APPRECIATE HEME-ONC CONSULT PATIENT WILL FOLLOW-UP IN OUTPATIENT SETTING WITH DR. HERNDON (2) Perforation of sigmoid colon due to diverticulitis: Onset Date: ~08/30/20 Code(s): K57.20 - Diverticulitis of large intestine with perforation and abscess without bleeding Status: Acute Assessment and Plan: SOME FREE AIR IN THE PERITONEUM SHOWN BY RECENT IMAGING ABDOMEN IS DISTENDED BUT NONTENDER PATIENT HAS BEEN TOLERATING FEEDINGS APPRECIATE SURGERY NOTE (3) Pulmonary embolism: Code(s): I26.99 - Other pulmonary embolism without acute cor pulmonale Status: Acute Assessment and Plan: PATIENT WILL BE SWITCHED OVER TO LOVENOX THERAPEUTIC WILL DISCUSS WITH SURGERY WHETHER NOT TO START NEW ANTICOAGULANT ORAL (4) Pneumoperitoneum: Code(s): K66.8 - Other specified disorders of peritoneum Status: Acute Assessment and Plan: LIKELY PERFORATED DIVERTICULUM MEDICAL MANAGEMENT STABLE (5) Pneumothorax of right lung after biopsy: Code(s): J95.811 - Postprocedural pneumothorax Status: Acute Assessment and Plan: CHEST X-RAY REPEATED SHOWED COMPLETE RESOLUTION (6) Shortness of Breath: Code(s): R06.02 - Shortness of breath Status: Acute Assessment and Plan: RESOLVED (7) Current every day nicotine vaping: Code(s): Z72.0 - Tobacco use Status: Acute Assessment and Plan: ENCOURAGED CESSATION (8) History of tobacco abuse: Code(s): Z87.891 - Personal history of nicotine dependence Status: Acute Assessment and Plan: PATIENT QUIT ROUGHLY 7 YEARS AGO (9) Asthma exacerbation in COPD: Code(s): J44.1 - Chronic obstructive pulmonary disease with (acute) exacerbation; J45.901 - Unspecified asthma with (acute) exacerbation Status: Acute Assessment and Plan: IMPROVED HAS SOME SCATTERED WHEEZING PHYSICAL EXAM CONTINUE BREATHING TREATMENTS NO STEROIDS DUE TO PERFORATED DIVERTICULUM Subjective Date/time seen: 09/03/20 15:27 I FEEL FINE Review of Systems Review of Systems: Narrative: PATIENT DENIED ANY DISCOMFORT OR COMPLAINTS AT THE TIME OF VISIT Exam Narrative: Exam Narrative: LAYING IN BED IN NO ACUTE DISTRESS Const: General: comfortable, no acute distress, well developed, alert, awake and ill appearing chronically Nutritional Appearance: average body habitus Orientation/consciousness: patient oriented x3 HENMT: Head: normal to inspection, normocephalic and atraumatic Ears: hearing grossly normal bilaterally Face and sinus: normal facial exam Eyes: General: appearance normal, both eyes and all related structures Pupils: Equal, round and reactive pupils present EOM: EOMs intact bilaterally Neck: Neck: full ROM, no lymphadenopathy and no JVD Thyroid: thyroid normal Lymphatic: no lymphadenopathy noted Resp: Effort & Inspection: normal respiratory effort and able to speak in complete sentences Auscultation: clear to auscultation bilaterally Cardio: Jugular venous distension: no JVD Rate: regular rate Rhythm: regular rhythm Heart sounds: S1 normal heart sound present and S2 normal heart sound present GI: Inspection: distended GI Palp: Yes Soft to palpation and Yes No hepatosplenomegaly present Percussion: Yes tympanic to percussion : General: Yes deferred Skin: Rashes: no rashes Wounds: no wounds Neuro: General: patient oriented x3 and CN's II-XI intact bilaterally Cranial nerves: Yes CN's II-XII intact bilaterally and Yes Equal, round and reactive pupils present Cognition (Neuro): normal cognition Speech: normal speech Gait exam (Neuro): Normal gait present Motor exam (neuro): 5/5 motor strength present throughout Extrem: General: normal
[2020-09-03] MEDS: APIXABAN 5 MG TABLET PO (20:46)
[2020-09-03] MEDS: BUDESONIDE RESPULE NEB 0.5 MG/2 ML AMP 1 MG INHALATION (20:59)
[2020-09-04] VITALS (18 sets, daily range): BP systolic 105–115; BP diastolic 64–72; PULSE 63–78; RESP 16–18; TEMP 36.1–36.9; O2SAT 94–100
[2020-09-04] MEDS: ACETAMINOPHEN 500 MG TABLET 1000 MG PO ×2 (00:22→16:30)
[2020-09-04] MEDS: IPRATROPIUM BR 0.02% INH SOLN 0.5 MG/2.5 ML VIAL INHALATION ×7 (00:55→23:50)
[2020-09-04] MEDS: ALBUTEROL SULFATE NEB 2.5 MG/0.5 ML INH INHALATION ×7 (00:55→23:49)
[2020-09-04 06:31] LABS: Basophils Percent Auto 0.3 % (0.2-1.2); Eosinophils Absolute Auto 0.3 K/mm3 (0-0.3); Eosinophils Percent Auto 4.8 % (0-4.4); Hematocrit 36.6 % (42.0-52.0); Hemoglobin 12.2 g/dL (14.0-18.0); Immature Granulocyte Absolute 0.17 K/mm3 (0.00-0.031); Immature Granulocyte Percent A 2.8 % (0-0.5); Lymphocytes Absolute Auto 0.66 K/mm3 (0.9-3.2); Lymphocytes Percent Auto 10.9 % (18.3-44.2); Mean Corpuscular HGB Conc 33.3 g/dl (32-36); Mean Corpuscular Hemoglobin 30.3 pg (26-34); Mean Corpuscular Volume 90.8 fl (80-100); Mean Platelet Volume 9.8 fl (7.4-10.4); Monocytes Absolute Auto 0.4 K/mm3 (0.1-0.6); Monocytes Percent Auto 6.8 % (2.6-8.5); Neutrophils Absolute Auto 4.5 K/mm3 (1.3-6.7); Neutrophils Percent Auto 74.4 % (45.5-73.1); Platelet Count Result 224 k/mm3 (150-375); Red Blood Count 4.03 M/mm3 (4.6-6.20); Red Cell Distribution Width 12.8 % (11.5-14.5); White Blood Count 6.1 K/mm3 (4.5-10.0)
[2020-09-04 06:44] LABS: Magnesium 2.4 mg/dL (1.6-2.3)
[2020-09-04] MEDS: PANTOPRAZOLE SODIUM IV 40 MG VIAL IV PUSH ×2 (08:42→20:58)
[2020-09-04] MEDS: APIXABAN 5 MG TABLET PO ×2 (08:42→20:58)
[2020-09-04] MEDS: BUDESONIDE RESPULE NEB 0.5 MG/2 ML AMP 1 MG INHALATION ×2 (09:54→20:25)
--- NOTE | 2020-09-04 09:58 | PM.PNGS ---
Progress Note: A&P Assessment and Plan (1) Lung mass: Code(s): R91.8 - Other nonspecific abnormal finding of lung field Status: Acute Assessment and Plan: Pathology came back on this showing squamous cell carcinoma. (2) Perforation of sigmoid colon due to diverticulitis: Onset Date: ~08/30/20 Code(s): K57.20 - Diverticulitis of large intestine with perforation and abscess without bleeding Status: Acute Assessment and Plan: This is suspected by a CT scan done several days ago. The patient appeared to have some free air at that time. Today's abdominal film shows some free air again which may just be moving around the abdomen. Patient's symptoms have not changed he is afebrile and his white count is normal. We will continue treating this with IV antibiotics. If pulmonary wishes probably could go ahead and use oral anticoagulation at this time since we are not planning to do any surgical intervention. If the patient's white blood cell count goes up or be starts running a fever over the weekend we may need to repeat a CT scan of the abdomen and pelvis. If he is a candidate for discharge in the next few days will need to consider a 1 week course of further oral antibiotics which would cover for bacteria related to diverticulitis. Follow-up CT scan of the abd and pelvis in about 2 weeks would be recommended if patient does well and has no real other symptoms. Additional Plan I have discussed the patient's case and plan of care with the patient and because it is now known that he has lung cancer I discussed with him placement of a port that can be used to give Chemo of immune therapy. At this time he is planning to meet as an outpatient once he is discharged with Dr. Menjivar and his daughter and decide whether or not he wants to proceed with treatment for the newly discovered lung cancer. I explained the risks benefits possible complications of placement of a port and this could be done as an outpatient also in the next few weeks. Probably would want to wait until after his 1 week course of treatment with oral antibiotics for the diverticulitis is complete along with a repeat CT scan of the abdomen and pelvis to rule out abscesses before placing the port. Subjective Subjective Date/Time Seen: 09/04/20 07:58 Patient is sitting up on the side of the bed. He states he just had a fairly loose bowel movement which got all over the place. He will be doing a sponge bath because of this. He does not feel strong enough to get in the shower right now. States he is not having any abdominal pain. He is not nauseated. He tolerated a full liquid diet last night. Review of Systems Review of Systems: All systems reviewed & are unremarkable except as noted in HPI and below Constitutional: Constitutional: Reports as per HPI, Denies chills, Denies fatigue and Denies fever(s) Eyes: Eyes: Reports no additional eye complaints and Denies change in vision ENT: Reports system reviewed and no additional complaints, except as documented and Denies dizziness Cardiovascular: Cardiovascular: Reports no additional cardiovascular complaints, Denies chest pain, Denies leg edema and Reports dyspnea Respiratory: Respiratory: Reports no additional respiratory complaints, Reports cough and Reports dyspnea Gastrointestinal: Gastrointestinal: Reports as per HPI, Reports no additional gastrointestinal complaints, Denies melena, Denies bloating, Denies hematochezia, Denies change in bowel habits, Denies change in stool character, Denies diarrhea, Reports loose stools, Denies nausea and Denies vomiting Genitourinary: Genitourinary: Denies hematuria and Denies dysuria Musculoskeletal: Musculoskeletal: Denies abnormal gait, Denies deformity, Denies joint swelling, Denies numbness and Denies tingling Integumentary/Breasts: Skin/Breast: Denies wounds and Denies jaundice Neurologic: Reports system reviewed and no additional complaints,
--- NOTE | 2020-09-04 10:57 | PM.PNPUL ---
Progress Note: A&P Assessment and Plan (1) COPD (chronic obstructive pulmonary disease) case management patient: Code(s): J44.9 - Chronic obstructive pulmonary disease, unspecified Status: Acute Assessment and Plan: Stable Needs outpatient PFT can discharge home on Anoro Ellipta 62.5/25 mcg 1 puff daily + ventolin PRN. (2) Pneumothorax of right lung after biopsy: Code(s): J95.811 - Postprocedural pneumothorax Status: Acute Assessment and Plan: resolved (3) Squamous cell carcinoma of lung: Code(s): C34.90 - Malignant neoplasm of unspecified part of unspecified bronchus or lung Status: Acute Assessment and Plan: Staging in progress. Will need to MRI Brain, PET CT and urgent f/u with Oncology. Subjective Date/time seen: 09/04/20 10:58 Interval history: Feeling well, tolerating clear liquids. No abd pain, no dyspnea. CXR shows no pneumothorax this morning Review of Systems Review of Systems: All systems reviewed & are unremarkable except as noted in HPI and below Exam Const: General: cooperative and healthy appearing Orientation/consciousness: oriented to person, oriented to place and oriented to time HENMT: Head: normal to inspection Ears: hearing grossly normal bilaterally Mouth: Yes Normal oral and palatal mucosa present Throat: tonsils absent Eyes: General: appearance normal, both eyes and all related structures Neck: Neck: normal visual inspection Chest: Chest palpation & inspection: normal inspection of the chest Resp: Effort & Inspection: normal respiratory effort Auscultation: crackles, no rales, no rhonchi and wheezes (bilateral expiratory) Cardio: Jugular venous distension: no JVD GI: Inspection: normal to inspection GI Palp: Yes abdominal tenderness, Yes Firmness to palpation present (GI) and Yes Tenderness to palpation present (GI) Auscultation: normal bowel sounds Skin: General skin exam: normal color Neuro: General: oriented to person, oriented to place and oriented to time Extrem: General: normal to inspection Psych: Appearance: grossly normal Objective Data Vital Signs Vital Signs: Vital Signs - 24 hr 09/03/20 11:26 09/03/20 11:30 09/03/20 11:33 Temperature Pulse Rate 80 82 Respiratory Rate 16 16 Blood Pressure Pulse Oximetry 97 09/03/20 11:58 09/03/20 14:00 09/03/20 15:03 Temperature 36.1 C L Pulse Rate 82 79 Respiratory Rate 20 16 Blood Pressure 113/61 Pulse Oximetry 97 96 09/03/20 15:12 09/03/20 21:00 09/03/20 21:01 Temperature Pulse Rate 77 67 Respiratory Rate 16 16 Blood Pressure Pulse Oximetry 97 09/03/20 21:11 09/03/20 21:33 09/04/20 00:00 Temperature 37.0 C 36.1 C L Pulse Rate 70 84 78 Respiratory Rate 16 18 18 Blood Pressure 123/54 L 112/72 Pulse Oximetry 94 97 09/04/20 00:56 09/04/20 02:06 09/04/20 04:36 Temperature Pulse Rate 63 65 70 Respiratory Rate 16 16 16 Blood Pressure Pulse Oximetry 09/04/20 04:44 09/04/20 09:55 09/04/20 10:16 Temperature Pulse Rate 68 72 76 Respiratory Rate 16 16 16 Blood Pressure Pulse Oximetry 97 Intake/Output Intake/Output: Intake & Output 09/01/20 09/02/20 09/03/20 09/04/20 23:59 23:59 23:59 23:59 Intake Total 2090 2080 1505 970 Output Total 2475 250 1100 Balance -385 1830 405 970 Meds/Results Medications: Active Medications Generic Name Dose Route Start Last Admin Trade Name Xanderq PRN Reason Stop Dose Admin Acetaminophen 1,000 mg 09/03/20 10:06 09/04/20 00:22 Acetaminophen 500 Mg Tablet PO 1,000 mg Q6H PRN Administration Mild Pain (1-3) or Fever Albuterol 2.5 mg 09/01/20 08:00 09/04/20 09:54 Albuterol Sulfate Neb 2.5 Mg/0.5 Ml Inh INHALATION 2.5 mg Q4HRT FLAQUITA Administration Apixaban 5 mg 09/03/20 21:00 09/04/20 08:42 Apixaban 5 Mg Tablet PO 5 mg Q12HR FLAQUITA Administration Budesonide 1 mg 09/02/20 20:00 09/04/20 09:54 Budesonid
--- NOTE | 2020-09-04 14:47 | PM.IMPN ---
Progress Note: A&P Assessment and Plan (1) Squamous cell carcinoma of lung: Code(s): C34.90 - Malignant neoplasm of unspecified part of unspecified bronchus or lung Status: Acute Assessment and Plan: will follow-up in the outpatient setting with Dr. Menjivar (2) COPD (chronic obstructive pulmonary disease) case management patient: Code(s): J44.9 - Chronic obstructive pulmonary disease, unspecified Status: Acute Assessment and Plan: no wheezing on physical appears to be stable (3) Perforation of sigmoid colon due to diverticulitis: Onset Date: ~08/30/20 Code(s): K57.20 - Diverticulitis of large intestine with perforation and abscess without bleeding Status: Acute Assessment and Plan: appears to be stable tolerating a diet appreciate surgery note (4) Pulmonary embolism: Code(s): I26.99 - Other pulmonary embolism without acute cor pulmonale Status: Acute Assessment and Plan: started on Eliquis Subjective Date/time seen: 09/04/20 14:47 patient states that he feels fine Review of Systems Review of Systems: ROS unobtainable: Yes unobtainable due to medical condition ( likely underlying dementia) Exam Narrative: Exam Narrative: patient is laying in bed Const: General: comfortable, no acute distress, well developed, alert and awake Nutritional Appearance: average body habitus Orientation/consciousness: oriented to person and oriented to place HENMT: Head: normal to inspection, normocephalic and atraumatic Ears: hearing grossly normal bilaterally Face and sinus: normal facial exam Eyes: General: appearance normal, both eyes and all related structures Pupils: Equal, round and reactive pupils present EOM: EOMs intact bilaterally Neck: Neck: full ROM, no lymphadenopathy and no JVD Thyroid: thyroid normal Lymphatic: no lymphadenopathy noted Resp: Effort & Inspection: normal respiratory effort and able to speak in complete sentences Auscultation: clear to auscultation bilaterally Cardio: Jugular venous distension: no JVD Rate: regular rate Rhythm: regular rhythm Heart sounds: S1 normal heart sound present and S2 normal heart sound present GI: GI Palp: Yes Soft to palpation and Yes No hepatosplenomegaly present : General: Yes deferred Skin: Rashes: no rashes Wounds: no wounds Neuro: General: patient oriented x3 and CN's II-XI intact bilaterally Cranial nerves: Yes CN's II-XII intact bilaterally and Yes Equal, round and reactive pupils present Cognition (Neuro): normal cognition Speech: normal speech Gait exam (Neuro): Normal gait present Motor exam (neuro): 5/5 motor strength present throughout Extrem: General: normal to inspection, full ROM, no joint enlargement and no pedal edema Objective Data Vital Signs Vital Signs: Vital Signs - 24 hr 09/03/20 15:03 09/03/20 15:12 09/03/20 21:00 Temperature Pulse Rate 79 77 Respiratory Rate 16 16 Blood Pressure Pulse Oximetry 97 09/03/20 21:01 09/03/20 21:11 09/03/20 21:33 Temperature 98.6 F Pulse Rate 67 70 84 Respiratory Rate 16 16 18 Blood Pressure 123/54 L Pulse Oximetry 94 09/04/20 00:00 09/04/20 00:56 09/04/20 02:06 Temperature 97.0 F L Pulse Rate 78 63 65 Respiratory Rate 18 16 16 Blood Pressure 112/72 Pulse Oximetry 97 09/04/20 04:36 09/04/20 04:44 09/04/20 09:55 Temperature Pulse Rate 70 68 72 Respiratory Rate 16 16 16 Blood Pressure Pulse Oximetry 97 09/04/20 10:16 09/04/20 13:19 09/04/20 13:25 Temperature Pulse Rate 76 72 77 Respiratory Rate 16 16 16 Blood Pressure Pulse Oximetry Intake/Output Intake/Output: Intake & Output 09/01/20 09/02/20 09/03/20 09/04/20 23:59 23:59 23:59 23:59 Intake Total 5790 0 1505 1310 Output Total 2475 250 1100 Balance -385 4312 828 3293 Meds/Results Medications: Active Medications Generic Name Dose Route Start Last Admin Trade Name Xander
[2020-09-05] MEDS: ALBUTEROL SULFATE NEB 2.5 MG/0.5 ML INH INHALATION (04:31)
[2020-09-05] MEDS: IPRATROPIUM BR 0.02% INH SOLN 0.5 MG/2.5 ML VIAL INHALATION (04:31)
[2020-09-05 04:32] VITALS: PULSE 70; RESP 18
[2020-09-05 04:45] VITALS: PULSE 78; RESP 16
[2020-09-05 06:00] VITALS: BP 107/67; PULSE 67; RESP 20; TEMP 36.6; O2SAT 96
[2020-09-05 06:26] LABS: Basophils Percent Auto 0.5 % (0.2-1.2); Eosinophils Absolute Auto 0.4 K/mm3 (0-0.3); Hematocrit 36.6 % (42.0-52.0); Hemoglobin 12.3 g/dL (14.0-18.0); Immature Granulocyte Absolute 0.13 K/mm3 (0.00-0.031); Immature Granulocyte Percent A 2.2 % (0-0.5); Lymphocytes Absolute Auto 0.62 K/mm3 (0.9-3.2); Lymphocytes Percent Auto 10.4 % (18.3-44.2); Mean Corpuscular HGB Conc 33.6 g/dl (32-36); Mean Corpuscular Hemoglobin 30.6 pg (26-34); Mean Platelet Volume 9.5 fl (7.4-10.4); Monocytes Absolute Auto 0.5 K/mm3 (0.1-0.6); Monocytes Percent Auto 7.5 % (2.6-8.5); Neutrophils Absolute Auto 4.3 K/mm3 (1.3-6.7); Neutrophils Percent Auto 72.4 % (45.5-73.1); Platelet Count Result 222 k/mm3 (150-375); Red Blood Count 4.02 M/mm3 (4.6-6.20); Red Cell Distribution Width 12.8 % (11.5-14.5)
[2020-09-05] MEDS: PANTOPRAZOLE SODIUM IV 40 MG VIAL IV PUSH (07:51)
[2020-09-05] MEDS: APIXABAN 5 MG TABLET PO (07:51)
--- NOTE | 2020-09-05 08:17 | PCRCNOTE ---
Pt. refused tx; Dr. Reyes and Violetta both notified of the refusal.
--- NOTE | 2020-09-05 08:35 | PM.PNGS ---
Progress Note: A&P Assessment and Plan (1) Lung mass: Code(s): R91.8 - Other nonspecific abnormal finding of lung field Status: Acute Assessment and Plan: Pathology came back on this showing squamous cell carcinoma. (2) Perforation of sigmoid colon due to diverticulitis: Onset Date: ~08/30/20 Code(s): K57.20 - Diverticulitis of large intestine with perforation and abscess without bleeding Status: Acute Assessment and Plan: This is suspected by a CT scan done several days ago. The patient appeared to have some free air at that time. Patient's symptoms have not changed he is afebrile and his white count is again normal. We will finish treating this with antibiotics by letting him get his noon dose of Zosyn today then sending him home on 7 days of Levaquin and Flagyl (Levaquin 500 once a day, metronidazole 500 3 times a day). If he is a candidate for discharge in the next few days will need to consider a 1 week course of further oral antibiotics which would cover for bacteria related to diverticulitis. Follow-up CT scan of the abd and pelvis in about 1 week as he is coming off his antibiotic regimen would be recommended if patient does well and has no real other symptoms. Can call the office if he worsens after going home. Will plan to see him [address] scan which will try to do on SundaySeptember 13. Additional Plan I have discussed the patient's case and plan of care with the patient and because it is now known that he has lung cancer I discussed with him placement of a port that can be used to give Chemo or immune therapy. At this time he is planning to meet as an outpatient once he is discharged with Dr. Menjivar and his and daughter and decide whether or not he wants to proceed with treatment for the newly discovered lung cancer. I explained the risks benefits possible complications of placement of a port and this could be done as an outpatient also in the next few weeks. Probably would want to wait until after his 1 week course of treatment with oral antibiotics for the diverticulitis is complete along with a repeat CT scan of the abdomen and pelvis to rule out abscesses before placing the port. Subjective Subjective Date/Time Seen: 09/05/20 08:35 Patient reports: no new complaints Interval history: Patient states he slept well. He tolerated a soft diet last evening. He understands he needs to stay on a low-fiber diet for the next week. He understands he needs to take oral antibiotics for 7 more days at home. Review of Systems Review of Systems: All systems reviewed & are unremarkable except as noted in HPI and below Constitutional: Constitutional: Reports as per HPI, Denies chills, Denies fatigue and Denies fever(s) Eyes: Eyes: Reports no additional eye complaints and Denies change in vision ENT: Reports system reviewed and no additional complaints, except as documented and Denies dizziness Cardiovascular: Cardiovascular: Reports no additional cardiovascular complaints, Denies chest pain, Denies leg edema and Reports dyspnea Respiratory: Respiratory: Reports no additional respiratory complaints, Reports cough and Reports dyspnea Gastrointestinal: Gastrointestinal: Reports as per HPI, Reports no additional gastrointestinal complaints, Denies melena, Denies bloating, Denies hematochezia, Denies change in bowel habits, Denies change in stool character, Denies diarrhea, Reports loose stools, Denies nausea and Denies vomiting Genitourinary: Genitourinary: Denies hematuria and Denies dysuria Musculoskeletal: Musculoskeletal: Denies abnormal gait, Denies deformity, Denies joint swelling, Denies numbness and Denies tingling Integumentary/Breasts: Skin/Breast: Denies wounds and Denies jaundice Neurologic: Reports system reviewed and no additional complaints, except as documented, Denies abnormal gait, Denies dizziness, Denies focal weakness, Denies numbness and Denies tingling Psy
--- NOTE | 2020-09-05 11:50 | PM.PNPUL ---
Progress Note: A&P Assessment and Plan (1) COPD (chronic obstructive pulmonary disease) case management patient: Code(s): J44.9 - Chronic obstructive pulmonary disease, unspecified Status: Acute Assessment and Plan: Stable Needs outpatient PFT can discharge home on Anoro Ellipta 62.5/25 mcg 1 puff daily + ventolin PRN. (2) Pneumothorax of right lung after biopsy: Code(s): J95.811 - Postprocedural pneumothorax Status: Acute Assessment and Plan: resolved (3) Squamous cell carcinoma of lung: Code(s): C34.90 - Malignant neoplasm of unspecified part of unspecified bronchus or lung Status: Acute Assessment and Plan: Staging in progress. Will need to MRI Brain, PET CT and urgent f/u with Oncology. Subjective Date/time seen: 09/05/20 11:50 Interval history: Interval history: Feeling well, tolerating clear liquids. No abd pain, no dyspnea. CXR shows no pneumothorax this morning Review of Systems Review of Systems: All systems reviewed & are unremarkable except as noted in HPI and below Exam Const: General: cooperative and healthy appearing Orientation/consciousness: oriented to person, oriented to place and oriented to time HENMT: Head: normal to inspection Ears: hearing grossly normal bilaterally Mouth: Yes Normal oral and palatal mucosa present Throat: tonsils absent Eyes: General: appearance normal, both eyes and all related structures Neck: Neck: normal visual inspection Chest: Chest palpation & inspection: normal inspection of the chest Resp: Effort & Inspection: normal respiratory effort Auscultation: crackles, no rales, no rhonchi and wheezes (bilateral expiratory) Cardio: Jugular venous distension: no JVD GI: Inspection: normal to inspection GI Palp: Yes abdominal tenderness, Yes Firmness to palpation present (GI) and Yes Tenderness to palpation present (GI) Auscultation: normal bowel sounds Skin: General skin exam: normal color Neuro: General: oriented to person, oriented to place and oriented to time Extrem: General: normal to inspection Psych: Appearance: grossly normal Objective Data Vital Signs Vital Signs: Vital Signs - 24 hr 09/04/20 13:19 09/04/20 13:25 09/04/20 14:00 Temperature 36.6 C Pulse Rate 72 77 71 Respiratory Rate 16 16 16 Blood Pressure 105/69 Pulse Oximetry 100 09/04/20 16:11 09/04/20 16:23 09/04/20 20:26 Temperature Pulse Rate 72 76 77 Respiratory Rate 16 16 16 Blood Pressure Pulse Oximetry 09/04/20 20:29 09/04/20 20:40 09/04/20 22:00 Temperature 36.9 C Pulse Rate 78 65 Respiratory Rate 16 18 Blood Pressure 115/64 Pulse Oximetry 97 94 09/04/20 23:50 09/04/20 23:59 09/05/20 04:32 Temperature Pulse Rate 72 78 70 Respiratory Rate 16 16 18 Blood Pressure Pulse Oximetry 09/05/20 04:45 09/05/20 06:00 Temperature 36.6 C Pulse Rate 78 67 Respiratory Rate 16 20 Blood Pressure 107/67 Pulse Oximetry 96 Intake/Output Intake/Output: Intake & Output 09/02/20 09/03/20 09/04/20 09/05/20 23:59 23:59 23:59 23:59 Intake Total 2080 1505 2050 570 Output Total 250 1100 250 400 Balance 1535 867 9844 170 Meds/Results Medications: Active Medications Generic Name Dose Route Start Last Admin Trade Name Freq PRN Reason Stop Dose Admin Acetaminophen 1,000 mg 09/03/20 10:06 09/04/20 16:30 Acetaminophen 500 Mg Tablet PO 1,000 mg Q6H PRN Administration Mild Pain (1-3) or Fever Albuterol 2.5 mg 09/01/20 08:00 09/05/20 08:16 Albuterol Sulfate Neb 2.5 Mg/0.5 Ml Inh INHALATION Not Given Q4HRT FLAQUITA Apixaban 5 mg 09/03/20 21:00 09/05/20 07:51 Apixaban 5 Mg Tablet PO 5 mg Q12HR FLAQUITA Administration Budesonide 1 mg 09/02/20 20:00 09/05/20 08:16 Budesonide Respule Neb 0.5 Mg/2 Ml Amp INHALATION Not Given Q12HRT FLAQUITA Piperacillin Sod/Tazobactam Sod 4.5 gm in 100 mls @ 200 mls/hr 08/31/20 19:35 09/05/20 11:29 Zosyn
--- NOTE | 2020-09-05 12:46 | PM.DS ---
DS: Admitting Diagnosis Admitting Diagnosis Admitting Diagnosis: (1) Pulmonary emboli: (2) Elevated troponin: (3) Asthma exacerbation in COPD: (4) Mass of lung: DS: Discharge Diagnosis Discharge Diagnosis (1) Squamous cell carcinoma of lung: Code(s): C34.90 - Malignant neoplasm of unspecified part of unspecified bronchus or lung Status: Acute Assessment and Plan: PATIENT WILL FOLLOW-UP WITH DR. HERNDON IN THE OUTPATIENT SETTING (2) COPD (chronic obstructive pulmonary disease) case management patient: Code(s): J44.9 - Chronic obstructive pulmonary disease, unspecified Status: Acute Assessment and Plan: CONTINUE ALBUTEROL FOLLOW-UP AT PCP'S OFFICE (3) Perforation of sigmoid colon due to diverticulitis: Onset Date: ~08/30/20 Code(s): K57.20 - Diverticulitis of large intestine with perforation and abscess without bleeding Status: Acute Assessment and Plan: PATIENT WENT HOME ON LEVOFLOXACIN AND FLAGYL FOR 10 DAYS WILL FOLLOW-UP IN OUTPATIENT SETTING (4) Pulmonary embolism: Code(s): I26.99 - Other pulmonary embolism without acute cor pulmonale Status: Acute Assessment and Plan: STARTED ON ELIQUIS (5) Lung mass: Code(s): R91.8 - Other nonspecific abnormal finding of lung field Status: Acute Assessment and Plan: SQUAMOUS CELL CARCINOMA A STATUS POST BIOPSY (6) Pneumoperitoneum: Code(s): K66.8 - Other specified disorders of peritoneum Status: Acute Assessment and Plan: LIKELY SECONDARY TO PERFORATED DIVERTICULUM (7) Pneumothorax of right lung after biopsy: Code(s): J95.811 - Postprocedural pneumothorax Status: Acute Assessment and Plan: TOTAL RESOLUTION (8) Shortness of Breath: Code(s): R06.02 - Shortness of breath Status: Acute Assessment and Plan: LIKELY SECONDARY TO COPD RESOLVED (9) Current every day nicotine vaping: Code(s): Z72.0 - Tobacco use Status: Acute Assessment and Plan: ENCOURAGED CESSATION (10) History of tobacco abuse: Code(s): Z87.891 - Personal history of nicotine dependence Status: Acute Assessment and Plan: PATIENT STATES THAT HE QUIT 7 YEARS AGO (11) Elevated troponin: Code(s): R77.8 - Other specified abnormalities of plasma proteins Status: Acute Assessment and Plan: TYPE 2 FL (12) Asthma exacerbation in COPD: Code(s): J44.1 - Chronic obstructive pulmonary disease with (acute) exacerbation; J45.901 - Unspecified asthma with (acute) exacerbation Status: Acute Assessment and Plan: RESOLVED DS: Summary Hospital Course Reason for hospitalization: CHEST WALL PAIN Hospital Course: THIS IS A 69-YEAR-OLD MALE WITH PAST MEDICAL HISTORY SIGNIFICANT FOR TOBACCO DEPENDENCE PATIENT QUIT 7 YEARS AGO HE PRESENTED TO THE EMERGENCY ROOM DUE TO PAIN WITH DEEP INSPIRATION UPON IMAGING HE WAS FOUND TO HAVE ACUTE PULMONARY EMBOLISM BUT ALSO SIGNIFICANT MEDIASTINAL LYMPHADENOPATHY CONCERNING FOR METASTATIC DISEASE. PATIENT WAS ADMITTED TO REGULAR MEDICAL FLOOR ON THERAPEUTIC LOVENOX AND BREATHING TREATMENTS PATIENT UNDERWENT BRONCHOSCOPY FOR FURTHER EVALUATION AND POSTPROCEDURE HE DEVELOPED A RIGHT-SIDED PNEUMOTHORAX AND INCIDENTALLY HE WAS FOUND TO HAVE FREE AIR IN THE PERITONEAL CAVITY. ON FURTHER EVALUATION IT WAS REVEALED THAT PATIENT PROBABLY HAD A PERFORATED DIVERTICULUM. RIGHT-SIDED PNEUMOTHORAX RESOLVED ON ITS OWN. PATIENT WAS BELIEVED TO HAVE A RUPTURED DIVERTICULUM FOR WHICH HE WAS MANAGED MEDICALLY AND WILL COMPLETE A COURSE OF ANTIBIOTICS FOR 10 DAYS. PATIENT WAS SEEN BY HEMATOLOGY-ONCOLOGY AND WAS INFORMED ABOUT HIS DIAGNOSIS FOR SQUAMOUS CELL CARCINOMA OF THE LUNG AND WOULD FOLLOW-UP IN THE OUTPATIENT SETTING. CONSULTS OBTAINED: PULMONOLOGY, GENERAL SURGERY, HEMATOLOGY-ONCOLOGY. PROCEDURES:
== END 2020-09-05 13:40 | disposition home or self-care (01) | DRG 180 ==
LOC: ANHED 14:39 → ANHIMU 08-29 00:05 → ANHICU 09-01 15:46 → ANH3MEDSUR 09-03 13:09 → ANHICU 09-07 09:46 → ANHIMU 09-07 09:46
PROVIDERS: Internal Medicine; Internal Medicine Pulmonary Disease; Nurse Practitioner; Nurse Practitioner Family; Physician Assistant; Surgery; Admitting Provider Internal Medicine; Emergency Provider Emergency Medicine; PCP Family Medicine; Visit Provider Internal Medicine
PROC: BB1DZZZ Fluoroscopy of Upper Airways (ICD-10-PCS; CPT 31624; principal; 2020-08-31 13:00)
DX: C34.90 Malignant neoplasm of unspecified part of unspecified bronchus or lung (principal); I26.99 Other pulmonary embolism without acute cor pulmonale; C77.1 Secondary and unspecified malignant neoplasm of intrathoracic lymph nodes; J44.1 Chronic obstructive pulmonary disease with (acute) exacerbation; J45.901 Unspecified asthma with (acute) exacerbation; J95.811 Postprocedural pneumothorax; K57.20 Diverticulitis of large intestine with perforation and abscess without bleeding; K66.8 Other specified disorders of peritoneum; Y84.8 Other medical procedures as the cause of abnormal reaction of the patient, or of later complication, without mention of misadventure at the time of the procedure; F17.290 Nicotine dependence, other tobacco product, uncomplicated; R77.8 Other specified abnormalities of plasma proteins; Z66 Do not resuscitate; Z79.899 Other long term (current) drug therapy
CPT/HCPCS: 36415; 36600; 71045; 71046; 71260; 71275; 74018; 74177; 80048; 80053; 81210; 81235; 81275; 81276; 82375; 82805; 83050; 83690; 83735; 84134; 84439; 84443; 84480; 84484; 85025; 85610; 85730; 87070; 87077; 87186; 87205; 88104; 88108; 88160; 88271; 88274; 88305; 88360; 88381; 93005; 93306; 93970; 94640; 96361; 96372; 96374; 96375; 97161; 97165; 99285; A9270; C9113; J0330; J1100; J1170; J1644; J1650; J2270; J2405; J2543; J2704; J2920; J2930; J7030; J7040; J7120; Q9967

== ENCOUNTER 2020-09-07 | Inpatient (IN) | payer MEDICARE, MEDICAID, SELFPAY ==
[2020-09-07] VITALS (13 sets, daily range): BP systolic 107–135; BP diastolic 54–112; PULSE 70–92; RESP 16–24; TEMP 36.2–36.9; O2SAT 96–100; BMI 22.1
--- NOTE | 2020-09-07 | ECHO_ITS ---
Patient Info Name: Ebenezer Quijano Age: 69 years : 1950 Gender: Male Ht: 72 in Wt: 162 lbs BSA: 1.93 m2 HR: 70 bpm BP: 131 / 73 mmHg Heart Rhythm: Sinus Rhythm Technical Quality: Fair Exam Date: 09/07/2020 2:25 PM Exam Location: [facility] Pulmonary Patient Status: Inpatient Admit Date: 09/07/2020 Staff Ordering Physician: Maurisio Desai MD Lock Technician: Izzy Jonas RDCS Attending Provider: Maurisio Desai MD Exam Type: CA echo limited w bubble study Study Info Limited two-dimensional transthoracic echocardiogram is performed with agitated saline. Contrast/Agitated Saline Contrast/Ag. Saline: Agitated Saline Amount: 20.00 ml Administered By: Bere Treviño RN Existing IV Access: Yes IV Access Condition: patent with no signs of infiltration Summary 1. Intact interatrial septum visualized by color flow and agitated saline imaging. Left Ventricle Left ventricular chamber dimension is normal. Left ventricular systolic function is normal, estimated at >70%. There is mildly increased left ventricular wall thickness. Right Ventricle Right ventricular chamber dimension is normal. Right ventricular systolic function is normal. Left Atria Left atrial chamber dimension is mildly enlarged. Right Atria Right atrial chamber dimension is normal. Atrial Septum Intact interatrial septum visualized by color flow and agitated saline imaging. Mitral Valve The mitral valve has thickened leaflets. Tricuspid Valve The tricuspid valve leaflets are normal. Report Signatures
--- NOTE | ~2020-09-07 | US_ITS ---
EXAMINATION: US carotid duplex BI DATE: 09/07/2020 14:04 INDICATION: Left-sided hemiparesis TECHNIQUE: Grayscale, color Doppler, and pulsed Doppler images of the cervical carotid arteries were obtained. The degree of vessel stenosis is placed in one of the following categories: normal, <50%, 5 0-69%, >=70% but less than near-occlusion, near-occlusion, or total occlusion. Note that percent sten osis relative to normal distal artery lumen diameter is indirectly measured from velocity measurement s as described by Darrel, et al. Radiology 2003; [id number]. COMPARISON: None. FINDINGS: RIGHT: The right common carotid artery (CCA) peak systolic velocity (PSV) is 87 cm/s. The right internal car otid artery (ICA) PSV is 67 cm/s. The right ICA end-diastolic velocity (EDV) is 20 cm/s. The right IC A/CCA PSV ratio is 0.8. Grayscale and color Doppler images yield an estimate of <50% diameter reducti on from negligible plaque in the ICA. The external carotid artery (ECA) PSV is 66 cm/s. There is ante grade flow in the right vertebral artery. LEFT: The left CCA PSV is 132 cm/s. The left ICA PSV is 81 cm/s. The left ICA EDV is 20 cm/s. The left ICA/ CCA PSV ratio is 0.6. Grayscale and color Doppler images demonstrate no appreciable plaque or stenosi s in the ICA. The ECA PSV is 43 cm/s. There is antegrade flow in the left vertebral artery. IMPRESSION: 1. <50% stenosis from negligible plaque in the right internal carotid artery. 2. No evident plaque or stenosis in the left internal carotid artery. Reviewed, dictated and finalized at location A.
--- NOTE | ~2020-09-07 | MR_ITS ---
EXAMINATION: MR brain/brain stem wo/w con DATE: 09/07/2020 13:45 INDICATION: Left hemiparesis. TECHNIQUE: Magnetic resonance imaging (MRI) of the brain and brainstem was performed without and with 15 mL MultiHance intravenous contrast. Sequences included sagittal and axial T1-weighted FSE, axial diffusion-weighted FS EPI, axial T2*-weighted GRE, axial T2-weighted FLAIR Propeller, and axial T2-we ighted Propeller. Postcontrast sequences included axial, sagittal, and coronal T1-weighted FSE. Appar ent diffusion coefficient (ADC) maps were created. COMPARISON: Head CT 09/07/2020 FINDINGS: There are patchy acute infarcts involving the right frontal, parietal, and occipital lobes. There is a small acute infarct in left cerebellum. There are scattered areas of nonspecific increase d T2-weighted signal intensity in the cerebral white matter, which is within normal limits for the pa tient's age. There is no intracranial hemorrhage or abnormal mass lesion. The ventricles are normal i n size. The orbits are normal. There is mild mucosal thickening in the ethmoid sinuses. The mastoid a ir cells are normal. IMPRESSION: 1. Acute infarcts involving the right frontal, parietal, occipital lobes and left cerebellum. Reviewed, dictated and finalized at location B. IMPRESSION: 1. Acute infarcts involving the right frontal, parietal, occipital lobes and le ft cerebellum.
--- NOTE | ~2020-09-07 | CT_ITS ---
EXAMINATION: CT abdomen pelvis wo con DATE: 09/09/2020 11:51 INDICATION: Generalized abdominal pain. TECHNIQUE: Computed tomography (CT) of the abdomen and pelvis was performed without intravenous contr ast. Automated exposure control and iterative reconstruction technique were employed. The dose-length product was 608.34 mGy-cm. COMPARISON: CT abdomen and pelvis 08/31/2020 FINDINGS: The visualized portions of the lung bases demonstrate peripheral reticular opacities and pe ripheral small airspace opacities. A calcified right lung nodule is consistent with old granulomatous disease. No pleural effusion. The heart size is normal. No pericardial effusion. There is a small sl iding hiatal hernia. The liver and gallbladder are normal. There are peripheral low-attenuation infar ct in the spleen. Calcifications in the spleen are consistent with old granulomatous disease. The hewitt creas, adrenal glands, and kidneys are normal. There is no urolithiasis. The prostate is mildly enlar ged. There are scattered diverticula in the colon. There is fat stranding adjacent to the sigmoid col on. There is a punctate focus of extraluminal gas near the sigmoid colon. The appendix is normal. A c alcified periceliac lymph node is consistent with old granulomatous disease. There are no pathologica lly enlarged lymph nodes. There is no free intraperitoneal fluid. There are old healed fractures of l eft superior and inferior pubic rami. There is moderate lumbar spondylosis. There is a hemangioma in T9 vertebral body. IMPRESSION: 1. Mild peripheral bilateral lung disease, consistent with pneumonia. 2. Subacute splenic infarcts again seen. 3. Subacute sigmoid diverticulitis with punctate residual focus of extraluminal gas. No drainable abs cess. Reviewed, dictated and finalized at location B. IMPRESSION: 1. Mild peripheral bilateral lung disease, consistent with pneumonia. 2. Subacute splenic infarcts again seen. 3. Subacute sigmoid diverticulitis with punctate residual focus of extraluminal gas. No drainable abscess.
--- NOTE | ~2020-09-07 | CT_ITS ---
EXAMINATION: CT brain wo con DATE: 09/07/2020 01:13 INDICATION: Left sided paresis TECHNIQUE: Computed tomography (CT) of the head was performed without intravenous contrast. The mA wa s adjusted according to patient size. Iterative reconstruction technique was employed. Exam dose: 68 1.00 mGy-cm total exam DLP. COMPARISON: None FINDINGS: There is moderate central and cortical cerebral atrophy. No intracranial mass lesion or hemorrhage or cerebrovascular accident is evident. No midline shift or mass effect. Bilateral carotid siphon internal carotid artery calcifications. No subdural or epidural hematoma. No orbital mass lesion. Included paranasal sinuses and mastoid air cells are normally developed and aerated. No fracture or bone destruction of the cranial vault. IMPRESSION: Moderate central and cortical cerebral atrophy Cerebral atherosclerosis No acute intracranial finding Reviewed, dictated and finalized at Location A. Reviewed, dictated and finalized at location A.
--- NOTE | ~2020-09-07 | XR_ITS ---
XR chest 1V portable DATE: 09/07/2020 01:09 INDICATION: Wheezing. Weakness. Recent diagnosis of lung and colon cancer. TECHNIQUE: Portable AP chest on 09/07/2020 at 0111 hours 08/31/2020 CT chest abdomen pelvis COMPARISON: 09/04/2020 portable AP chest FINDINGS asymmetric right hilar enlargement consistent with recently documented right hilar adenopath y and right perihilar mass.: Heart size is within normal limits. Mild aortic unfolding. Minimal atelectasis at the lung bases. The lungs otherwise appear clear of infiltrate or consolidatio n. IMPRESSION: Right perihilar mass and right hilar adenopathy Mild atelectasis at the lung bases Reviewed, dictated and finalized at location A.
--- NOTE | 2020-09-07 00:27 | ECG_ITS ---
Measurements Intervals [place] Rate: 79 P: MO: 0 QRS: -48 QRSD: 92 T: 193 QT: 389 QTc: 447 Interpretive Statements ATRIAL FIBRILLATION LEFT ANTERIOR FASCICULAR BLOCK BORDERLINE ST-T WAVE ABNORMALITY- DIFFUSE LEADS BASELINE ARTIFACT- I, II, AVR, AVL, AVF, V2-V6 ABNORMAL ECG Electronically Signed On 09-07-2020 7:18:43 CDT by Theo Aguilera D.O.
--- NOTE | 2020-09-07 00:30 | ED.WEAKNESS ---
HPI - Weakness General Chief complaint: Weakness Stated complaint: weakness Time Seen by Provider: 09/07/20 00:07 Source: patient Mode of arrival: EMS Limitations: no limitations History of Present Illness HPI Narrative: This is a 69 year old male with history of COPD, recent diagnosis of lung cancer, pulmonary emboli and diverticulitis who presents for evaluation of generalized weakness. He was discharged from [facility] on 09/05/20 after a 1 week stay for PE, diverticulitis , lung cancer. He states he felt fine when he was discharged home. He woke up yesterday morning with weakness. He states he was unable to get up to go to restroom. EMS was called yesterday evening and patient refused to come to ER. EMS was called again later in the evening because he could not get up to go to the bathroom. Related Data Home Medications Medication Instructions Recorded Confirmed albuterol sulfate [Ventolin HFA] 4 puff INHALATION QID PRN 08/28/20 09/07/20 Allergies Allergy/AdvReac Type Severity Reaction Status Date / Time No Known Allergies Allergy Verified 09/04/20 18:02 Review of Systems Review of Systems: All systems reviewed & are unremarkable except as noted in HPI and below Constitutional: Constitutional: Denies chills and Denies fever(s) Cardiovascular: Cardiovascular: Denies chest pain Respiratory: Respiratory: Denies cough and Reports dyspnea Gastrointestinal: Gastrointestinal: Denies abdominal pain, Denies diarrhea, Denies nausea and Denies vomiting Musculoskeletal: Musculoskeletal: Denies back pain Neurologic: Denies headache(s) and Reports weakness PMFSH Past Medical History Medical History COPD (chronic obstructive pulmonary disease) case management patient History of tobacco abuse Surgical History Surgical History No history of previous surgery Family History Family History Father Cancer Mother No problems noted. Other Unknown family medical history Social History Social History Social History: The patient lives with his and states that she is a durable power wireless network engineer for healthcare. The patient has 2 children and he is retired from the [employer]. The patient stated that he did smoke for 40 some years. He states that he has about 2 beers a day. He does not use any marijuana or illicit drugs. The patient told the staff earlier that he wanted to be a DNR. Smoking status: Former smoker Alcohol intake: current Drinks per week: 2 Substance use: never Gender identity (if verbalized by the patient): Male Spiritual care concerns: No Exam Const: General: alert Orientation/consciousness: patient oriented x3 HENMT: Face and sinus: Flattened naso-labial fold present Teeth and gingiva: edentulous Eyes: Pupils: Equal, round and reactive pupils present EOM: EOMs intact bilaterally Resp: Effort & Inspection: normal respiratory effort and no retractions Auscultation: clear to auscultation bilaterally Cardio: Rate: regular rate Heart sounds: no murmurs GI: GI Palp: Yes Soft to palpation, No Tenderness to palpation present (GI) and No Guarding due to palpation present (GI) Auscultation: normal bowel sounds Skin: Other: left hand and arm swelling with bruising Neuro: General: patient oriented x3 Other: decreased left hand cane loader strength. left arm and left leg drift. slightly slurred speech Extrem: General: edema Psych: Mental Status: mental status grossly normal Affect: normal affect Course Consultations Consultation #1: I Discussed case with Dr. Villagomez. Patient appears to have left side deficits. She accepts him to [facility] after discussion of labs. I will order MRI. Patient's last known well is 2 days ago so not candidate Date: 09/07/20 Time: 02:30 Vital Signs Vital signs: V
[2020-09-07] MEDS: ALBUTEROL SULFATE NEB 2.5 MG/0.5 ML INH 5 MG INHALATION (00:40)
[2020-09-07] MEDS: IPRATROPIUM BR 0.02% INH SOLN 0.5 MG/2.5 ML VIAL INHALATION (00:40)
[2020-09-07 00:52] LABS: Alveolar/Arterial O2 Gradient 30.7 mmHg; Base Excess ABG -0.2 mEq/l (+/-2.0); Carboxyhemoglobin 0.5 % THb (0-2.0); Fractional Inspired Oxygen 21 %; HCO3 ABG 22.5 mEq/l (22.0-26.0); Methemoglobin ABG 0.1 %THb (0-1.5); Oxygen Content ABG 18.2 %vol (16.0-22.0); Oxygen Saturation ABG 96.8 % (95.0-100.0); Oxyhemoglobin 95.6 % THb (90.0-100.0); PCO2 ABG 31.3 mmHg (35.0-45.0); PO2 ABG 81.6 mmHg (80.0-100.0); PO2 FiO2 Ratio Arterial Blood 3.89 %; Reduced Hemoglobin 3.8 %THb (0-5.0); Total Hemoglobin 13.5 g/dL (12.0-18.0); pH ABG 7.475 (7.350-7.450)
[2020-09-07 00:53] LABS: Device ROOM AIR; Site Drawn RIGHT BRACHIAL
[2020-09-07 00:59] LABS: Basophils Percent Auto 0.4 % (0.2-1.2); Eosinophils Absolute Auto 0.2 K/mm3 (0-0.3); Eosinophils Percent Auto 2.2 % (0-4.4); Hematocrit 38.6 % (42.0-52.0); Hemoglobin 13.2 g/dL (14.0-18.0); Immature Granulocyte Absolute 0.18 K/mm3 (0.00-0.031); Immature Granulocyte Percent A 2.2 % (0-0.5); Lymphocytes Absolute Auto 0.71 K/mm3 (0.9-3.2); Lymphocytes Percent Auto 8.7 % (18.3-44.2); Mean Corpuscular HGB Conc 34.2 g/dl (32-36); Mean Corpuscular Hemoglobin 30.9 pg (26-34); Mean Corpuscular Volume 90.4 fl (80-100); Mean Platelet Volume 9.8 fl (7.4-10.4); Monocytes Absolute Auto 0.7 K/mm3 (0.1-0.6); Monocytes Percent Auto 8.2 % (2.6-8.5); Neutrophils Absolute Auto 6.4 K/mm3 (1.3-6.7); Neutrophils Percent Auto 78.3 % (45.5-73.1); Platelet Count Result 228 k/mm3 (150-375); Red Blood Count 4.27 M/mm3 (4.6-6.20); Red Cell Distribution Width 12.7 % (11.5-14.5); White Blood Count 8.2 K/mm3 (4.5-10.0)
[2020-09-07 01:13] LABS: Alanine Aminotransferase 63 U/L (4-50); Albumin Level 3.4 g/dL (3.5-5.1); Alkaline Phosphatase 70 U/L (38-126); Anion Gap 6 mmol/L (8-16); Aspartate Amino Transferase 47 U/L (17-59); Bilirubin,Total 1.3 mg/dL (0.2-1.3); Blood Urea Nitrogen 16 mg/dL (9-20); Calcium 8.6 mg/dL (8.4-10.2); Carbon Dioxide 26 mmol/L (22-30); Chloride 102 mmol/L (98-107); Estimated CRCL calculation 74 ml/min; Estimated Glomerular Filt Rate > 60; Glucose 111 mg/dL (75-110); Potassium 3.8 mmol/L (3.4-5.0); Sodium 134 mmol/L (137-145)
[2020-09-07 01:14] LABS: INR 1.1; Partial Thromboplastin Time 25.2 SECONDS (22.3-36.8); Prothrombin Time 14.8 Seconds (11.1-14.7)
[2020-09-07 01:45] LABS: NT Pro B Type Natriuretic Pept 556 PG/ML (5-100)
[2020-09-07 03:00] LABS: Add Urine Microscopic? YES; Appearance Urine Cloudy (Clear); Bilirubin Urine Negative (Negative); Blood Urine Negative (Negative); Color Urine Amber (Yellow); Glucose Urine UA Negative (Negative); Ketones Urine 1+ mg/dL (Negative); Leukocyte Esterase Ur Negative LEU/UL (Negative); Mucus Urine Rare /lpf; Nitrate Urine Negative (Negative); Protein Urine 1+ mg/dL (Negative); RBC Urine 0-2 /hpf (0-2); Specific Grav Ur 1.024 (1.001-1.035); Squamous Epithelial Cell Urine Rare /hpf (Few); WBC Urine 0-3 /hpf
--- NOTE | 2020-09-07 04:29 | ADMGEN ---
This patient, Ebenezer Quijano, was admitted to [facility] Surg Room 321-. Patient/family oriented to hospital policies and general routines including ID bracelet, bed and alarms, visiting hours, pain management, procedures, bathroom and other care routines, personal items, smoking policy, room service/diet, and visiting hours. Information on how to activate the Rapid Response Team has been discussed. Patient/Family are encouraged to report perceived risks to care and to ask questions if they do not understand what they are told or what they should do.
[2020-09-07 09:14] LABS: Glucose Point of Care 103 (65-105)
--- NOTE | 2020-09-07 11:36 | PM.IMHP ---
H&P: HPI History of Present Illness Date/Time: 09/07/20 11:36 This is a 69 year old male with history of COPD, recent diagnosis of squamous cell lung cancer, pulmonary emboli and diverticulitis who presents for evaluation of generalized weakness. He was discharged from [facility] on 09/05/20 after a 1 week stay for PE, diverticulitis , lung cancer. He states he felt fine when he was discharged home. He woke up yesterday morning with weakness. He states he was unable to get up to go to restroom. EMS was called yesterday evening and patient refused to come to ER. EMS was called again later in the evening because he could not get up to go to the bathroom. He states onel weakness is on the left side and is about the same as yeserday, not progressed or improved. per nursing staff, the weakness was imporved as compared to her evaluation this am. Chief Complaint: left sided weakness Review of Systems Review of Systems: Narrative: - CONSTITUTIONAL: Denies weight loss, fever and chills. - HEENT: Denies changes in vision and hearing - RESPIRATORY: Denies SOB and cough. - CV: Denies palpitations and CP. - GI: Denies abdominal pain, nausea, vomiting and diarrhea. - : Denies dysuria and urinary frequency. - MSK: Denies myalgia and joint pain. - SKIN: Denies rash and pruritus. - NEUROLOGICAL: Denies headache and syncope. - PSYCHIATRIC: Denies recent changes in mood. Denies anxiety and depression. All systems reviewed & are unremarkable except as noted in HPI and below PMFSH Past Medical History Medical History COPD (chronic obstructive pulmonary disease) case management patient History of tobacco abuse Surgical History Surgical History No history of previous surgery Family History Family History Father Cancer Mother No problems noted. Other Unknown family medical history Social History Social History Social History: The patient lives with his and states that she is a durable power attorney general for healthcare. The patient has 2 children and he is retired from the [employer]. The patient stated that he did smoke for 40 some years. He states that he has about 2 beers a day. He does not use any marijuana or illicit drugs. The patient told the staff earlier that he wanted to be a DNR. Smoking status: Former smoker Alcohol intake: current Drinks per week: 2 Substance use: never Gender identity (if verbalized by the patient): Male Spiritual care concerns: No Meds Home Medications and Allergies Home Medications Medication Instructions Recorded Confirmed Type albuterol sulfate [Ventolin HFA] 4 puff INHALATION QID PRN 08/28/20 09/07/20 History apixaban [Eliquis] 5 mg PO BID #60 tablet 09/05/20 09/07/20 Rx levofloxacin 750 mg PO DAILY #10 tablet 09/05/20 09/07/20 Rx metronidazole [Flagyl] 500 mg PO Q8H #10 tablet 09/05/20 09/07/20 Rx Allergies Allergy/AdvReac Type Severity Reaction Status Date / Time No Known Allergies Allergy Verified 09/04/20 18:02 Vital Signs Vital Signs - 24 hr 09/07/20 00:07 09/07/20 00:36 09/07/20 00:59 Temperature 97.7 F Pulse Rate 85 72 71 Respiratory Rate 24 H 22 H 18 Blood Pressure 127/76 Pulse Oximetry 97 09/07/20 01:41 09/07/20 02:35 09/07/20 04:05 Temperature Pulse Rate 83 83 70 Respiratory Rate 16 18 20 Blood Pressure 135/112 H 124/93 H 122/54 L Pulse Oximetry 100 99 98 09/07/20 04:35 Temperature 97.1 F L Pulse Rate 88 Respiratory Rate 16 Blood Pressure 131/73 Pulse Oximetry 98 Exam Narrative: Exam Narrative: GENERAL: The patient is well developed, not in acute distress HEENT: Nonicteric sclerae, PERRLA, EOMI. Oropharynx clear. Moist mucous membranes. Conjunctivae appear well perfused. CHEST: Chest wall is nontender. HEART: Regular ra
[2020-09-07 11:43] LABS: Glucose Point of Care 103 (65-105)
[2020-09-07 12:47] LABS: Cholesterol 203 mg/dL (0-200); HDL Direct 29 mg/dL; Triglycerides 144 mg/dL (<150)
[2020-09-07 12:57] LABS: LDL Cholesterol Direct 144 mg/dL
[2020-09-07] MEDS: metroNIDAZOLE 250 MG TABLET 500 MG PO ×2 (15:30→22:39)
[2020-09-07 17:11] LABS: Glucose Point of Care 202 (65-105)
[2020-09-07] MEDS: APIXABAN 5 MG TABLET PO (17:33)
[2020-09-07] MEDS: BISACODYL 10 MG SUPPOSITORY RECTAL (19:22)
[2020-09-07] MEDS: DOCUSATE SODIUM 100 MG CAPSULE PO (22:39)
[2020-09-07] MEDS: ATORVASTATIN 10 MG TABLET PO (22:39)
[2020-09-07 22:52] LABS: Glucose Point of Care 104 (65-105)
[2020-09-08] VITALS (10 sets, daily range): BP systolic 112–128; BP diastolic 60–70; PULSE 64–81; RESP 14–20; TEMP 36.5–36.6; O2SAT 96–99
[2020-09-08] MEDS: metroNIDAZOLE 250 MG TABLET 500 MG PO ×3 (05:42→20:29)
[2020-09-08] MEDS: ACETAMINOPHEN 325 MG TABLET 650 MG PO ×2 (05:42→11:11)
[2020-09-08 07:49] LABS: Glucose Point of Care 138 (65-105)
[2020-09-08] MEDS: ASPIRIN 81 MG ENTERIC TABLET PO (09:43)
[2020-09-08] MEDS: DOCUSATE SODIUM 100 MG CAPSULE PO ×2 (09:44→20:29)
[2020-09-08] MEDS: APIXABAN 5 MG TABLET PO ×2 (09:44→18:32)
[2020-09-08 12:23] LABS: Glucose Point of Care 129 (65-105)
--- NOTE | 2020-09-08 12:57 | PM.IMPN ---
Progress Note: A&P Assessment and Plan (1) Current every day nicotine vaping: Code(s): Z72.0 - Tobacco use Status: Acute Assessment and Plan: # Acute left sided weakness: started more than [address] head negative. stroke workup positive for acute stroke involving the right frontal, parietal, occipital lobes and left cerebellum. due to multiple areas involved, supsect embolic stroke from his atrial fibrillation. ECHO with no PFO or thrombus. carotid us with no significant stenosis. he was on eliquis at home, but he states he was not taking them regularly. contineu on eliquis. neurology consultation pending. EKG with atrial fibrillation. telemetry monitoring. will stop his aspirin. CT head does note atherosclerosis, will continue statin. LDL 144. 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 recent bronchoscopy. right upper lobe 12 mm mass with metastatic riht hilar and mediastinal lymphadenopathy. # COPD: albuterol inhalers to continue. not in acute exacerbation # splenic infarcts noted in CT # recent pneumothorax and pneumomediastinum: resovled. on medical managmeent. abdomen looks soft and benign CXR with resoleed ptx # hx of perforation of sigmoid colon due to diverticultisi. placed on levofloxacin and falgyl for 10 days which will be continued here. # Pulmonary embolism lower lobes and lingula: on eliquis. # tobacco abuse # Elevated troponin:comrped to recent admission, trending down. # DVT proph: eliquis Subjective Date/time seen: 09/08/20 12:57 no overnight events, he is weak on left side, not worse than what it was, no fever, chills,sob, chest pain. Review of Systems Review of Systems: Narrative: - CONSTITUTIONAL: Denies weight loss, fever and chills. - HEENT: Denies changes in vision and hearing - RESPIRATORY: Denies SOB and cough. - CV: Denies palpitations and CP. - GI: Denies abdominal pain, nausea, vomiting and diarrhea. - : Denies dysuria and urinary frequency. - MSK: Denies myalgia and joint pain. - SKIN: Denies rash and pruritus. - NEUROLOGICAL: Denies headache and syncope. - PSYCHIATRIC: Denies recent changes in mood. Denies anxiety and depression. All systems reviewed & are unremarkable except as noted in HPI and below Exam Narrative: Exam Narrative: GENERAL: The patient is well developed, not in acute distress HEENT: Nonicteric sclerae, PERRLA, EOMI. Oropharynx clear. Moist mucous membranes. Conjunctivae appear well perfused. CHEST: Chest wall is nontender. HEART: Regular rate and rhythm without murmur, rubs, or gallops LUNGS: Clear to auscultation bilaterally. no respiratory distress ABDOMEN: Soft, positive bowel sounds, non-tender, no organomegaly. SKIN: No rash, no excessive bruising, petechiae, or purpura. NEUROLOGIC: Cranial nerves II-XII intact, he has slurred grabled speech but comprehensible, no facial asymmetry noted alert and oriented x 3, left side it help desk manager less compared to the rifght side, left sided plantar response upgoing. knee reflexes bialteral equal and symmetrical. EXTREMITIES: no edema, cyanosis or clubbing Objective Data Vital Signs Vital Signs: Vital Signs - 24 hr 09/07/20 14:22 09/07/20 16:00 09/07/20 20:00 Temperature 97.4 F L Pulse Rate 85 87 74 Respiratory Rate 18 18 Blood Pressure 122/58 L Pulse Oximetry 98 96 09/07/20 21:50 09/08/20 00:00 09/08/20 04:00 Temperature 98.4 F Pulse Rate 80 66 81 Respiratory Rate 18 Blood Pressure 107/63 Pulse Oximetry 96 09/08/20 05:41 09/08/20 08:21 Temperature 97.9 F Pulse Rate 76 Respiratory Rate 18 Blood Pressure 124/70 Pulse Oximetry 96 97 Intake/Output Intake/Output: Intake & Output 09/05/20 09/06/20 09/07/20 09/08/20 23:59 23:59 23:59 23:59 Intake Total 240 250 Output Total 400 830 Balance -160 -580 Meds/Results Medications: Active Medications Generic Name Dose Route Start Last Admin Trade Name Freq PRN Reason St
--- NOTE | 2020-09-08 14:26 | PCSTNOTE ---
Please refer to the Bedside Swallow Evaluation in the EMR. Please note, silent aspiration cannot be ruled out at bedside.
--- NOTE | 2020-09-08 15:09 | PC.NURSE ---
On 09/08/20, the student, [Beronica Morataya ], provided care and completed [facility] documentation on this patient. I have reviewed the student's documentation and agree with the findings.
--- NOTE | 2020-09-08 15:25 | PC.NURSE ---
On 09/08/20, the student, [ Beronica Diallo], provided care and completed [facility] documentation on this patient. I have reviewed the student's documentation and agree with the findings.
[2020-09-08] MEDS: ATORVASTATIN 10 MG TABLET PO (20:29)
[2020-09-08 20:40] LABS: Glucose Point of Care 121 (65-105)
[2020-09-09] VITALS (12 sets, daily range): BP systolic 112–147; BP diastolic 70–82; PULSE 72–93; RESP 20; TEMP 36.4–36.7; O2SAT 95–100
[2020-09-09] MEDS: metroNIDAZOLE 250 MG TABLET 500 MG PO ×3 (05:25→21:00)
--- NOTE | 2020-09-09 08:12 | PCOTNOTE ---
Attempted to see patient this am, however patient was sleeping upon entering and refused due to 8/10 stomach pain. Pt stated, I'm not doing so good, and I can't get any sleep! RN notified.
[2020-09-09] MEDS: ACETAMINOPHEN 325 MG TABLET 650 MG PO ×2 (08:19→16:46)
[2020-09-09] MEDS: DOCUSATE SODIUM 100 MG CAPSULE PO ×2 (08:20→20:59)
[2020-09-09] MEDS: APIXABAN 5 MG TABLET PO ×2 (08:20→16:46)
--- NOTE | 2020-09-09 08:57 | PC.NURSE ---
Patient complaining of feeling the need to void but unable to. Patient bladder scanned and it showed 200mL in.
[2020-09-09] MEDS: BENZOCAINE/MENTHOL (*BKC) 18 EA LOZENGE 1 LOZENGE PO ×2 (10:23→14:28)
[2020-09-09 10:32] LABS: Add Urine Microscopic? YES; Appearance Urine Clear (Clear); Bacteria Urine Trace /hpf; Bilirubin Urine Negative (Negative); Blood Urine Negative (Negative); Color Urine Amber (Yellow); Glucose Urine UA Negative (Negative); Ketones Urine Negative (Negative); Leukocyte Esterase Ur 1+ LEU/UL (NEGATIVE); Mucus Urine Few /lpf; Nitrate Urine Negative (Negative); Protein Urine 1+ mg/dL (Negative); Specific Grav Ur 1.028 (1.001-1.035)
[2020-09-09] MEDS: BISACODYL 10 MG SUPPOSITORY RECTAL (10:53)
--- NOTE | 2020-09-09 10:58 | WPDNEURCNPN ---
Assessment and Plan Assessment and plan (1) Acute left-sided weakness: Code(s): R53.1 - Weakness Status: Acute Additional Plan generalized weakness with history of left-sided component more obvious in addition to multiple underlying medical problems MRI of the brain documented acute infarct in the right frontal parietal and occipital lobe and also left cerebellum, carotid ultrasound not significant for any surgical intervention, patient already on apixaban 5 mg b.i.d. at this stage she will benefit only from the physical therapy Consult date: 09/09/20 Time Seen: 10:00 HPI: Ebenezer Quijano is a 69 year old male admitted to the hospital for the complaints of generalized weakness in addition to ongoing history of 1. COPD 2. Squamous cell carcinoma of the lung 3. History of pulmonary emboli 4. History of diverticulitis, patient does have ongoing history of tobacco abuse with COPD, and carries the instruction for DNR, evaluation documented him to have hemoglobin of 13.2 platelet count for 2 to 8 wbc's only 8.2 , normal coag studies, normal UA, COVID serology pending Review of Systems Review of Systems: All systems reviewed & are unremarkable except as noted in HPI and below PMFSH Past Medical History Medical History COPD (chronic obstructive pulmonary disease) case management patient History of tobacco abuse Surgical History Surgical History No history of previous surgery Family History Family History Father Cancer Mother No problems noted. Other Unknown family medical history Social History Social History Social History: The patient lives with his and states that she is a durable power civil rights attorney for healthcare. The patient has 2 children and he is retired from the [employer]. The patient stated that he did smoke for 40 some years. He states that he has about 2 beers a day. He does not use any marijuana or illicit drugs. The patient told the staff earlier that he wanted to be a DNR. Smoking status: Former smoker Alcohol intake: current Drinks per week: 2 Substance use: never Gender identity (if verbalized by the patient): Male Spiritual care concerns: No Meds Home Medications and Allergies Home Medications Medication Instructions Recorded Confirmed Type albuterol sulfate [Ventolin HFA] 4 puff INHALATION QID PRN 08/28/20 09/07/20 History apixaban [Eliquis] 5 mg PO BID #60 tablet 09/05/20 09/07/20 Rx levofloxacin 750 mg PO DAILY #10 tablet 09/05/20 09/07/20 Rx metronidazole [Flagyl] 500 mg PO Q8H #10 tablet 09/05/20 09/07/20 Rx Allergies Allergy/AdvReac Type Severity Reaction Status Date / Time No Known Allergies Allergy Verified 09/04/20 18:02 Vital Signs Vital Signs - 24 hr 09/08/20 12:00 09/08/20 13:39 09/08/20 16:00 Temperature 36.6 C Pulse Rate 80 77 80 Respiratory Rate 14 Blood Pressure 128/70 Pulse Oximetry 98 09/08/20 20:00 09/08/20 22:00 09/09/20 00:00 Temperature 36.5 C Pulse Rate 64 78 72 Respiratory Rate 20 Blood Pressure 112/60 Pulse Oximetry 99 09/09/20 04:00 09/09/20 06:00 09/09/20 09:56 Temperature 36.4 C Pulse Rate 93 77 Respiratory Rate 20 Blood Pressure 135/82 Pulse Oximetry 98 96 Exam Const: General: cooperative, no acute distress, alert, anxious and uncomfortable Nutritional Appearance: average body habitus Orientation/consciousness: oriented to person and oriented to place Limitations: physical limitations HENMT: Head: normal to inspection Ears: hearing grossly normal bilaterally General nose exam: Normal external nose present Face and sinus: normal facial exam Mouth: Yes Normal oral and palatal mucosa present Eyes: General: appearance normal, both eyes and all related structures Visual James: normal visual james by confrontation Al
--- NOTE | 2020-09-09 11:02 | PM.IMPN ---
Progress Note: A&P Assessment and Plan (1) Current every day nicotine vaping: Code(s): Z72.0 - Tobacco use Status: Acute Assessment and Plan: # Acute left sided weakness: started more than 24 hrs [address]. [address] head negative. stroke workup positive for acute stroke involving the right frontal, parietal, occipital lobes and left cerebellum. due to multiple areas involved, suspect embolic stroke from his atrial fibrillation. ECHO with no PFO or thrombus. carotid us with no significant stenosis. he was on eliquis at home, but he states he was not taking them regularly. contineu on eliquis. neurology consultation pending. discused with Dr. Veronica and will do evaluation. EKG with atrial fibrillation. telemetry monitoring. will stop his aspirin. CT head does note atherosclerosis, will continue statin. LDL 144. 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 recent bronchoscopy. right upper lobe 12 mm mass with metastatic riht hilar and mediastinal lymphadenopathy. plan to have port placement and concurrent chemoradiation as op basis. # COPD: albuterol inhalers to continue. not in acute exacerbation # splenic infarcts noted in CT # recent pneumothorax and pneumomediastinum: resovled. on medical managmeent. CXR with resoleed ptx # hx of perforation of sigmoid colon due to diverticultisi. placed on levofloxacin and falgyl for 10 days which will be continued here. abdomen looks soft and benign, however he reports some abdominal pain today. will repeat CT abdomen and pelvis today for futher evaluqation. # Urinary retention: intermittent straight cath. check ua. already on antibiotics though # Pulmonary embolism lower lobes and lingula: on eliquis. # tobacco abuse # Elevated troponin:comrped to recent admission, trending down. # DVT proph: eliquis # Dispoistion: needs rehabilaition PT/OT/ST # Dysphagia: on restrcitive diet. discussed with speech therapist 09/08/20 Subjective Date/time seen: 09/09/20 11:02 he reports his abdomen hurts. he kind of points all over his abdomen, he denies any nauesa, vomiting. no fever. he has been needing to get straight cathed as he is not able to urinate by himself. no fever, chlls. so0b, chest pain. Review of Systems Review of Systems: Narrative: - CONSTITUTIONAL: Denies weight loss, fever and chills. - HEENT: Denies changes in vision and hearing - RESPIRATORY: Denies SOB and cough. - CV: Denies palpitations and CP. - GI: reports abdominal pain, denies nausea, vomiting and diarrhea. - : Denies dysuria and urinary frequency. - MSK: Denies myalgia and joint pain. - SKIN: Denies rash and pruritus. - NEUROLOGICAL: Denies headache and syncope. - PSYCHIATRIC: Denies recent changes in mood. Denies anxiety and depression. All systems reviewed & are unremarkable except as noted in HPI and below Exam Narrative: Exam Narrative: GENERAL: The patient is well developed, not in acute distress HEENT: Nonicteric sclerae, PERRLA, EOMI. Oropharynx clear. Moist mucous membranes. Conjunctivae appear well perfused. CHEST: Chest wall is nontender. HEART: Regular rate and rhythm without murmur, rubs, or gallops LUNGS: Clear to auscultation bilaterally. no respiratory distress ABDOMEN: Soft, positive bowel sounds, mild tenderness in lower abdomen, no organomegaly. SKIN: No rash, no excessive bruising, petechiae, or purpura. NEUROLOGIC: Cranial nerves II-XII intact, he has slurred grabled speech but comprehensible, no facial asymmetry noted alert and oriented x 3, left side food services manager less compared to the rifght side, left sided plantar response upgoing. knee reflexes bialteral equal and symmetrical. EXTREMITIES: no edema, cyanosis or clubbing Objective Data Vital Signs Vital Signs: Vital Signs - 24 hr 09/08/20 12:00 09/08/20 13:39 09/08/20 16:00 Temperature 97.9 F Pulse Rate 80 77 80 Respiratory Rate 14 Blood Pressure 128/70 Pulse Oximetry 98
--- NOTE | 2020-09-09 11:50 | PC.NURSE ---
Patient to CT per bed.
--- NOTE | 2020-09-09 11:54 | PC.NURSE ---
Patient returned from CT per bed.
--- NOTE | 2020-09-09 14:22 | PCOTNOTE ---
Attempted therapy session with patient, but patient refused all ADLs, exercises and functional transfers, stating he doesn't feel like it right now.
[2020-09-09 16:56] LABS: SARS-CoV-2 RNA PCR Negative
[2020-09-09] MEDS: ATORVASTATIN 10 MG TABLET PO (20:59)
[2020-09-10 04:00] VITALS: PULSE 87
[2020-09-10 05:33] VITALS: BP 114/69; PULSE 76; RESP 20; TEMP 36.6; O2SAT 95
[2020-09-10 05:59] LABS: Basophils Percent Auto 0.3 % (0.2-1.2); Eosinophils Absolute Auto 0.1 K/mm3 (0-0.3); Eosinophils Percent Auto 1.1 % (0-4.4); Hematocrit 39.9 % (42.0-52.0); Hemoglobin 13.5 g/dL (14.0-18.0); Immature Granulocyte Absolute 0.14 K/mm3 (0.00-0.031); Immature Granulocyte Percent A 1.4 % (0-0.5); Lymphocytes Absolute Auto 0.86 K/mm3 (0.9-3.2); Lymphocytes Percent Auto 8.4 % (18.3-44.2); Mean Corpuscular HGB Conc 33.8 g/dl (32-36); Mean Corpuscular Hemoglobin 31.8 pg (26-34); Mean Corpuscular Volume 93.9 fl (80-100); Mean Platelet Volume 9.9 fl (7.4-10.4); Monocytes Absolute Auto 0.6 K/mm3 (0.1-0.6); Monocytes Percent Auto 6.2 % (2.6-8.5); Neutrophils Absolute Auto 8.5 K/mm3 (1.3-6.7); Neutrophils Percent Auto 82.6 % (45.5-73.1); Platelet Count Result 187 k/mm3 (150-375); Red Blood Count 4.25 M/mm3 (4.6-6.20); Red Cell Distribution Width 13.3 % (11.5-14.5); White Blood Count 10.3 K/mm3 (4.5-10.0)
[2020-09-10] MEDS: metroNIDAZOLE 250 MG TABLET 500 MG PO (06:04)
[2020-09-10] MEDS: BENZOCAINE/MENTHOL (*BKC) 18 EA LOZENGE 1 LOZENGE PO ×3 (06:09→12:32)
[2020-09-10 06:19] LABS: Alanine Aminotransferase 28 U/L (4-50); Albumin Level 3.4 g/dL (3.5-5.1); Alkaline Phosphatase 81 U/L (38-126); Anion Gap 5 mmol/L (8-16); Aspartate Amino Transferase 25 U/L (17-59); Blood Urea Nitrogen 12 mg/dL (9-20); Calcium 8.6 mg/dL (8.4-10.2); Carbon Dioxide 27 mmol/L (22-30); Chloride 105 mmol/L (98-107); Estimated CRCL calculation 78 ml/min; Estimated Glomerular Filt Rate > 60; Glucose 118 mg/dL (75-110); Potassium 3.7 mmol/L (3.4-5.0); Sodium 137 mmol/L (137-145)
[2020-09-10 08:00] VITALS: PULSE 82
[2020-09-10] MEDS: DOCUSATE SODIUM 100 MG CAPSULE PO (08:59)
[2020-09-10] MEDS: APIXABAN 5 MG TABLET PO (08:59)
[2020-09-10] MEDS: ACETAMINOPHEN 325 MG TABLET 650 MG PO (09:09)
--- NOTE | 2020-09-10 10:45 | PCOTNOTE ---
Attempted to see patient this AM for skilled OT session. Patient sitting up in bed attempting to use urinal, reporting of pain due to not being able to empty bladder and requesting catheter. RN notified and aware of this, waiting for Dr to put order in. KD relayed this information to the patient, and discussed participation of other ADL tasks, functional mobility and exercises this session, but patient refused participation in therapy at this time due to bladder pain. Will attempt to see patient again this date. Continue per Plan of Care.
[2020-09-10 12:00] VITALS: PULSE 79
[2020-09-10] MEDS: TAMSULOSIN HCL 0.4 MG CAPSULE PO (12:29)
--- NOTE | 2020-09-10 12:36 | PM.DS ---
DS: Admitting Diagnosis Admitting Diagnosis Admitting Diagnosis: left sided weakness DS: Discharge Diagnosis Discharge Diagnosis (1) Acute left-sided weakness: Code(s): R53.1 - Weakness Status: Acute (2) Squamous cell carcinoma of lung: Code(s): C34.90 - Malignant neoplasm of unspecified part of unspecified bronchus or lung Status: Acute (3) Acute embolic stroke: Code(s): I63.9 - Cerebral infarction, unspecified Status: Acute (4) Atrial fibrillation: Code(s): I48.91 - Unspecified atrial fibrillation Status: Acute DS: Summary Hospital Course Hospital Course: # Acute left sided weakness: started more than 24 [address]. [address] head negative. stroke workup positive for acute stroke involving the right frontal, parietal, occipital lobes and left cerebellum. due to multiple areas involved, suspect embolic stroke from his atrial fibrillation. ECHO with no PFO or thrombus. carotid us with no significant stenosis. he was on eliquis at home, but he states he was not taking them regularly. contineu on eliquis. neurology consultation with Dr. Veronica. he suggests to continue with therapy. EKG with atrial fibrillation. telemetry monitoring. CT head does note atherosclerosis, will continue statin. LDL 144. 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 recent bronchoscopy. right upper lobe 12 mm mass with metastatic right hilar and mediastinal lymphadenopathy. plan to have port placement and concurrent chemoradiation as op basis. bethany garcia need to follow up with Chastity Menjivar as scheduled for his workup. # COPD: albuterol inhalers to continue. not in acute exacerbation. add on anoro # splenic infarcts noted in CT # recent pneumothorax and pneumomediastinum: resovled. on medical managmeent. CXR with resoleed ptx # hx of perforation of sigmoid colon due to diverticultisi. placed on levofloxacin and falgyl for 10 days which will be continued here. abdomen looks soft and benign, however he reports some abdominal pain today. repeat ct abdomen with resolving diverticultis. continue and finish the course of antibiotics as planned. 5 more days left. # Urinary retention: intermittent straight cath. checked uacheck ua. some blodo likely from trauma. he is already on antibiotics though. CT abdomen did not show any abnormalitiy. # Pulmonary embolism lower lobes and lingula: on eliquis. # tobacco abuse # Elevated troponin:compared to recent admission, trending down. # DVT proph: [place] # Dispoistion: needs rehabilaition PT/OT/ [facility] him and he will be going there. # Dysphagia: on restrcitive diet. discussed with speech therapist 09/08/20. he will continue on that. Status at Discharge Overall status at discharge: patient is progressing back to baseline Time Spent with Patient Time attestation: Total time spent providing and/or coordinating discharge services:45 mins Time spent: Greater than 30 minutes Exam Narrative: Exam Narrative: GENERAL: The patient is well developed, not in acute distress HEENT: Nonicteric sclerae, PERRLA, EOMI. Oropharynx clear. Moist mucous membranes. Conjunctivae appear well perfused. CHEST: Chest wall is nontender. HEART: Regular rate and rhythm without murmur, rubs, or gallops LUNGS: Clear to auscultation bilaterally. no respiratory distress ABDOMEN: Soft, positive bowel sounds, mild tenderness in lower abdomen, no organomegaly. SKIN: No rash, no excessive bruising, petechiae, or purpura. NEUROLOGIC: Cranial nerves II-XII intact, he has slurred grabled speech but comprehensible, no facial asymmetry noted alert and oriented x 3, left side pizza chef less compared to the rifght side, left sided plantar response upgoing. knee reflexes bialteral equal and symmetrical. EXTREMITIES: no edema, cyanosis or clubbing DS: Data Data Completed and Pending Labs on day of discharge: Labs from last 24 hours 09/10/20
== END 2020-09-10 14:08 | DRG 65 ==
LOC: ANHED 00:38 → ANH3MEDSUR 03:12
PROVIDERS: Admitting Provider Internal Medicine; Emergency Provider General Practice; PCP Family Medicine; Visit Provider Internal Medicine
DX: I63.9 Cerebral infarction, unspecified (principal); G81.94 Hemiplegia, unspecified affecting left nondominant side; C34.11 Malignant neoplasm of upper lobe, right bronchus or lung; C77.1 Secondary and unspecified malignant neoplasm of intrathoracic lymph nodes; K57.32 Diverticulitis of large intestine without perforation or abscess without bleeding; Z20.822 Contact with and (suspected) exposure to COVID-19; I48.91 Unspecified atrial fibrillation; D73.5 Infarction of spleen; J44.9 Chronic obstructive pulmonary disease, unspecified; R33.9 Retention of urine, unspecified; Z66 Do not resuscitate; Z87.891 Personal history of nicotine dependence; Z86.711 Personal history of pulmonary embolism; Z79.01 Long term (current) use of anticoagulants
CPT/HCPCS: 36415; 36600; 70450; 70553; 71045; 74176; 80053; 80061; 81001; 82375; 82805; 82948; 83050; 83605; 83880; 84484; 85025; 85610; 85730; 87040; 87086; 92610; 93005; 93308; 93880; 94640; 96375; 97110; 97162; 97165; 97530; 97535; 99285; A9270; A9577; C9803; G0378; U0003; U0005

== ENCOUNTER 2020-09-21 13:17 | Outpatient (CLI) | payer MEDICARE, MEDICAID, SELFPAY ==
--- NOTE | ~2020-09-21 | CT_ITS ---
EXAMINATION: CT abdomen pelvis w con EXAM DATE: 09/21/2020 13:52 INDICATION: K57.20 - Diverticulitis of large intestine with perforation and abscess without bleeding. TECHNIQUE: Spiral CT of the abdomen and pelvis was performed following intravenous injection of 100 m L Omnipaque 350. Axial, coronal and sagittal images of the abdomen and pelvis were reviewed. The do se-length product (DLP) for this examination was 359.91 mGy-cm. The exposure was tailored according to patient size (auto mA exposure control), and iterative reconstruction (ASIR) was used as additiona l dose reduction technique. Comparison is made to prior examination from 09/09/2020, 08/31/2020. FINDINGS: There is right lower lobe posterior subsegmental pulmonary embolism. Finding of pulmonary e mbolus smaller reported on pulmonary CT from 08/28/2020. Considerable increase in size of the splenic geographically shaped hypodense region, now measuring ab out 4.5 x 7.5 cm, and also now with a mildly expanded appearance which could be caused by edema from acute infarction superimposed on previously seen infarctions. Metastatic disease would not progress t his fast. There is been improvement in previously seen sigmoid diverticulitis. Moderate sigmoid diverticulosis. Resolution of previously seen punctate extraluminal focus of gas. Nonspecific small region of fat st randing, induration in the right presacral region also unchanged, measuring about 2 cm. Gallbladder is unremarkable. No biliary obstruction. Portal and splenic veins are patent. Kidneys enhance symmetrically. There is no hydronephrosis. The prostate is unremarkable. The bladder is c ollapsed with Carvajal catheter balloon anchor inside. There is no retroperitoneal or pelvic lymphadeno ameya. Small bilateral inguinal fat-containing hernias. Moderate arterial sclerotic disease. The appendix is normal. The stomach and small bowel are unremarkable. There is expected amount of c olonic stool. No free intraperitoneal gas. The heart is normal in size. There are no pericardial or pleural effusions. Left lower lobe posterior sulcal triangular-shaped pleural-based region measu ring about 1.5 cm which is low density, probably patient's treated pneumonia. There are no osteoblas tic or osteolytic lesions identified. IMPRESSION: 1. Small amount residual perisigmoid inflammation, resolution of punctate extraluminal gas. 2. Right lower lobe posterior subsegmental pulmonary embolism. 3. Increase in size of splenic hypodensity, likely acute on subacute moderate-sized infarction. 4. Left lower lobe low-density region, probably residual from treated pneumonia. 5. Other chronic findings. I discussed this case with Allen Corona MD at 09/21/2020 16:26 CDT, believes patient is scheduled for DrHowie appointment with oncologist Dr. Menjivar on . Reviewed, dictated and finalized at location B. IMPRESSION: 1. Small amount residual perisigmoid inflammation, resolution of punctate extr aluminal gas. 2. Right lower lobe posterior subsegmental pulmonary embolism. 3. Increase in size of splenic hypodensity, likely acute on subacute moderate- sized infarction. 4. Left lower lobe low-density region, probably residual from treated pneumoni a. 5. Other chronic findings. I discussed this case with Allen Corona MD at 09/21/2020 16:26 CDT, believe s patient is scheduled for DrHowie appointment with oncologist Dr. Menjivar on .
== END 2020-09-21 13:18 | disposition home or self-care (01) ==
LOC: ANHIMG 13:19
PROVIDERS: PCP Family Medicine; Visit Provider Surgery
DX: K57.20 Diverticulitis of large intestine with perforation and abscess without bleeding (principal)
CPT/HCPCS: 74177; Q9967

== ENCOUNTER 2020-09-28 14:19 | Observation (INO) | payer MEDICARE, MEDICAID, SELFPAY ==
[2020-09-28] VITALS (22 sets, daily range): BP systolic 111–202; BP diastolic 56–133; PULSE 63–92; RESP 15–26; TEMP 36.1–36.2; O2SAT 92–100
--- NOTE | ~2020-09-28 | XR_ITS ---
EXAMINATION: XR chest 1V portable DATE: 09/28/2020 14:38 INDICATION: Shortness of breath. TECHNIQUE: A single frontal view of the chest was obtained. COMPARISON: Chest single view 09/07/2020, chest CT 08/31/2020 FINDINGS: There is mild scarring at the lung apices. No pleural effusion or pneumothorax. The heart s ize is normal. IMPRESSION: 1. Stable mild scarring at the lung apices. Reviewed, dictated and finalized at location B.
--- NOTE | ~2020-09-28 | CT_ITS ---
EXAMINATION: [facility] EXAM DATE: 09/28/2020 15:20 INDICATION: Altered mental status. TECHNIQUE: Spiral CT of the head was performed without contrast. Axial, coronal and sagittal images were reviewed. The dose-length product (DLP) for this examination was 681.00 mGy-cm. The exposure w as tailored according to patient size, and iterative reconstruction (ASIR) was used as additional dos e reduction technique. There is no prior study for comparison. FINDINGS: There is no acute intraparenchymal hemorrhage. No evidence of intraparenchymal brain mass lesion. No evidence of acute infarction. Please note that initial head CT has limited sensitivity f or small or acute infarctions. There is mild periventricular and subcortical hypodensity, nonspecific but probably related to small vessel ischemic disease. There is moderate prominence of the sulci a nd ventricles related to cerebral atrophy. There is intracranial carotid arteriosclerosis. There a re no extra-axial collections. There is no mass effect or midline shift. The orbits are unremarkabl e. Soft tissue is unremarkable. The visualized sinuses and mastoid air cells are well aerated. IMPRESSION: 1. No acute intracranial findings. 2. Chronic age related findings. Reviewed, dictated and finalized at location A.
--- NOTE | 2020-09-28 14:29 | ECG_ITS ---
Measurements Intervals [place] Rate: 51 P: -41 MN: 153 QRS: -2 QRSD: 88 T: 60 QT: 369 QTc: 341 Interpretive Statements ATRIAL FIBRILLATION WITH SLOW VENTRICULAR RESPONSE DELAYED PRECORDIAL R/S TRANSITION LOW QRS VOLTAGE IN DIFFUSE LEADS BORDERLINE T WAVE ABNORMALITY- DIFFUSE LEADS BASELINE ARTIFACT- I, II, III, AVR, AVL, AVF, V1-V6 ABNORMAL ECG Electronically Signed On 09-28-2020 17:54:37 CDT by Theo Aguilera D.O.
[2020-09-28 14:58] LABS: Base Excess ABG 1.2 mEq/l (+/-2.0); Fractional Inspired Oxygen 28 %; HCO3 ABG 24.7 mEq/l (22.0-26.0); Oxygen Content ABG 16.2 %vol (16.0-22.0); Oxygen Saturation ABG 97.1 % (95.0-100.0); Oxyhemoglobin 95.7 % THb (90.0-100.0); PCO2 ABG 35.5 mmHg (35.0-45.0); PO2 ABG 86.8 mmHg (80.0-100.0); pH ABG 7.461 (7.350-7.450)
[2020-09-28 14:59] LABS: Device NASAL CANNULA; Modified Allen's Test Pass; Site Drawn RIGHT RADIAL
--- NOTE | 2020-09-28 15:49 | PCCCNOTE ---
Care Coordination spoke with pt's about Hospice. Gave list of hospice choices and which hospice agencies had contract with [facility]. choose [facility] from [facility]. Explained to that pt's Medicaid would now be paying for his room. Nori agrees to Medicaid paying for Hospice care. Called [facility] and started admission process. will call [facility] when she gets home in the next 30 minutes, [facility] was provided the Nori's home phone number. Care Coordination will fax order for Hospice, demographic sheet and ED notes to [phone].
[2020-09-28 16:01] LABS: Basophils Percent Auto 0.2 % (0.2-1.2); Eosinophils Absolute Auto 0.1 K/mm3 (0-0.3); Eosinophils Percent Auto 0.7 % (0-4.4); Hematocrit 34.4 % (42.0-52.0); Hemoglobin 11.7 g/dL (14.0-18.0); Immature Granulocyte Absolute 0.07 K/mm3 (0.00-0.031); Immature Granulocyte Percent A 0.8 % (0-0.5); Lymphocytes Absolute Auto 0.58 K/mm3 (0.9-3.2); Lymphocytes Percent Auto 6.7 % (18.3-44.2); Mean Corpuscular Hemoglobin 31.2 pg (26-34); Mean Corpuscular Volume 91.7 fl (80-100); Mean Platelet Volume 10.4 fl (7.4-10.4); Monocytes Absolute Auto 0.7 K/mm3 (0.1-0.6); Monocytes Percent Auto 7.5 % (2.6-8.5); Neutrophils Absolute Auto 7.2 K/mm3 (1.3-6.7); Neutrophils Percent Auto 84.1 % (45.5-73.1); Platelet Count Result 108 k/mm3 (150-375); Red Blood Count 3.75 M/mm3 (4.6-6.20); Red Cell Distribution Width 13.9 % (11.5-14.5); White Blood Count 8.6 K/mm3 (4.5-10.0)
[2020-09-28 16:08] LABS: Partial Thromboplastin Time 34.9 SECONDS (22.3-36.8)
[2020-09-28 16:09] LABS: Alanine Aminotransferase 32 U/L (4-50); Albumin Level 3.8 g/dL (3.5-5.1); Alkaline Phosphatase 104 U/L (38-126); Anion Gap 4 mmol/L (8-16); Aspartate Amino Transferase 50 U/L (17-59); Bilirubin,Total 1.3 mg/dL (0.2-1.3); Blood Urea Nitrogen 15 mg/dL (9-20); Carbon Dioxide 31 mmol/L (22-30); Chloride 103 mmol/L (98-107); Estimated Glomerular Filt Rate > 60; Glucose 100 mg/dL (75-110); Potassium 4.4 mmol/L (3.4-5.0); Sodium 138 mmol/L (137-145)
[2020-09-28 16:20] LABS: Add Urine Microscopic? YES; Amorphous Sediment Urine Few; Appearance Urine Cloudy (Clear); Bacteria Urine Trace /hpf; Bilirubin Urine Negative (Negative); Blood Urine 3+ (Negative); Budding Yeast Urine Present /hpf; Color Urine Amber (Yellow); Glucose Urine UA Negative (Negative); Ketones Urine Negative (Negative); Leukocyte Esterase Ur Trace LEU/UL (Negative); Mucus Urine Heavy /lpf; Nitrate Urine Negative (Negative); Protein Urine 2+ mg/dL (Negative); RBC Urine >75 /hpf (0-2); Specific Grav Ur 1.025 (1.001-1.035); Squamous Epithelial Cell Urine Occasional /hpf (Few); WBC Urine 31-50 /hpf
--- NOTE | 2020-09-28 17:39 | PC.NURSE ---
Planning on returning patient to [facility] as a hospice admission. BRANDEN Reed calls to facility. They are stating at this time that the patient's last note of normal behavior was this am at 10am. Pt status unchanged from earlier. Speech is garbled, but pt attempts to answer questions.
--- NOTE | 2020-09-28 18:14 | ED.GENADULT ---
HPI - General Adult General Chief complaint: Unspecified Stated complaint: // Time Seen by Provider: 09/28/20 14:23 Source: family, EMS, RN notes reviewed and old records reviewed Mode of arrival: EMS Limitations: altered mental status History of Present Illness HPI narrative: Patient is a 70-year-old male who presents to emergency department for evaluation of altered mental status patient was found by staff to be altered around 1:00 this afternoon patient was last seen normal around 9 or 10 this morning. Patient has had history of recent pulmonary embolus, CVA. Patient is currently on Eliquis. Patient on arrival to emergency department had garbled speech and was unable to follow commands and could do some slight head-nodding but was difficult to ascertain whether or not he was fully understanding the questions being asked. Related Data Home Medications Medication Instructions Recorded Confirmed albuterol sulfate [Ventolin HFA] 4 puff INHALATION QID PRN 08/28/20 09/23/20 Anoro Ellipta 09/28/20 Allergies Allergy/AdvReac Type Severity Reaction Status Date / Time No Known Allergies Allergy Verified 09/28/20 18:01 [facility] Past Medical History Medical History (Updated 09/28/20 @ 18:23 by Rudy Uriostegui PA-C) Acute embolic stroke Acute left-sided weakness Asthma exacerbation in COPD COPD (chronic obstructive pulmonary disease) case management patient History of tobacco abuse Perforation of sigmoid colon due to diverticulitis (~08/30/20) Pulmonary embolism Squamous cell carcinoma of lung Surgical History Surgical History No history of previous surgery Family History Family History Father Cancer Mother No problems noted. Other Unknown family medical history Social History Social History Social History: The patient lives with his and states that she is a durable power [place] attorney for healthcare. The patient has 2 children and he is retired from the [employer]. The patient stated that he did smoke for 40 some years. He states that he has about 2 beers a day. He does not use any marijuana or illicit drugs. The patient told the staff earlier that he wanted to be a DNR. Smoking status: Former smoker Alcohol intake: current Drinks per week: 2 Substance use: never Gender identity (if verbalized by the patient): Male Spiritual care concerns: No Exam Narrative: Exam Narrative: GENERAL: Ill-appearing, well-nourished, and in no acute distress. HEAD: Normocephalic, atraumatic. EYES: PERRLA and EOMI. ENT: Nares clear, no rhinorrhea or epistaxis. Mucous membranes moist. NECK: Supple. No adenopathy or masses. No carotid bruits or JVD CHEST: Clear to auscultation. No respiratory distress. No wheezes rales or rhonchi HEART: Regular rate and rhythm. No murmur heard. Normal peripheral pulses. ABDOMEN: Soft, nontender, nondistended. EXTREMITIES: Normal range of motion. No edema. SKIN: Warm, dry, no rash. NEURO: Patient is unable to follow commands with garbled speech with left-sided weakness does move the right upper extremity Course Course Emergency Course: Patient presented with altered mentation with what appears to be a stroke it was called out as low oxygen and altered mentation with poor history from the [place] [facility] discussion was made with the son and daughter who are aware of their father's presentation it is felt at this time that he has had another stroke patient is out of the window given that his last normal was this morning around 9 or 10 AM he is also currently on Eliquis which does not fare well for his condition. Patient will be brought in for further stroke work-up. On his last stroke work-up patient had had echocardiogram and carotid Dopplers. Patient is also in the process of being placed on hospice with fam
--- NOTE | 2020-09-28 18:25 | PC.NURSE ---
Admission orders received. Awaiting bed assignment.
--- NOTE | 2020-09-28 19:10 | PC.NURSE ---
Report to [facility], to continue care. Continue to await bed assignment.
--- NOTE | 2020-09-28 21:00 | ADMGEN ---
This patient, Ebenezer Quijano, was admitted to Medical Room 343-01. Patient/family oriented to hospital policies and general routines including ID bracelet, bed and alarms, visiting hours, pain management, procedures, bathroom and other care routines, personal items, smoking policy, room service/diet, and visiting hours. Information on how to activate the Rapid Response Team has been discussed. Patient/Family are encouraged to report perceived risks to care and to ask questions if they do not understand what they are told or what they should do.
[2020-09-28] MEDS: FAMOTIDINE 20 MG/2 ML VIAL IV PUSH (21:04)
[2020-09-28] MEDS: LACTATED RINGERS 1,000 ML 75 ML IV CONT (21:04)
[2020-09-29] VITALS: BP 144/80; PULSE 83; PULSE 88; RESP 16; TEMP 36.6; O2SAT 98
--- NOTE | 2020-09-29 00:31 | PM.IMHP ---
H&P: HPI History of Present Illness Date/Time: 09/29/20 00:31 Chief Complaint: ALTERED MENTAL STATUS Narrative: THIS IS A 70-YEAR-OLD MALE WITH PAST MEDICAL HISTORY SIGNIFICANT FOR STROKE, LUNG CANCER. PATIENT IS LIVING AT [facility] PER MY UNDERSTANDING ACCORDING TO EMERGENCY ROOM NOTES FAMILY HAS BEEN WORKING IN HOSPICE PLACEMENT FOR HIM. PATIENT WAS BROUGHT TO THE EMERGENCY ROOM DUE TO ALTERED MENTAL STATUS AND GARBLED SPEECH PRELIMINARY WORKUP WAS NON RELEVANT PATIENT IS UNABLE TO GIVE ANY HISTORY AT THE TIME OF MY VISIT HE IS OBVIOUSLY CONFUSED AND FIDGETY UNABLE TO GIVE ANY HISTORY. A CHEST X-RAY WAS CLEAR AND CHEMISTRY WAS UNREVEALING A PRELIMINARY CT WAS UNREVEALING WELL PATIENT WITH EXTENSIVE WORKUP DURING HIS PAST ADMISSION FOR STROKE PATIENT CURRENTLY ON BLOOD THINNERS. [facility] Past Medical History Medical History (Updated 09/28/20 @ 18:23 by Rudy Uriostegui PA-C) Acute embolic stroke Acute left-sided weakness Asthma exacerbation in COPD COPD (chronic obstructive pulmonary disease) case management patient History of tobacco abuse Perforation of sigmoid colon due to diverticulitis (~08/30/20) Pulmonary embolism Squamous cell carcinoma of lung Surgical History Surgical History No history of previous surgery Family History Family History Father Cancer Mother No problems noted. Other Unknown family medical history Social History Social History Social History: The patient lives with his and states that she is a durable power business attorney for healthcare. The patient has 2 children and he is retired from the [employer]. The patient stated that he did smoke for 40 some years. He states that he has about 2 beers a day. He does not use any marijuana or illicit drugs. The patient told the staff earlier that he wanted to be a DNR. Smoking status: Former smoker Additional smoking assessment comments: patient unable to answer amount he used to smoke or for how long he smoked Alcohol intake: unknown Drinks per week: 2 Substance use: unknown Gender identity (if verbalized by the patient): Male Spiritual care concerns: No Meds Home Medications and Allergies Home Medications Medication Instructions Recorded Confirmed Type albuterol sulfate [Ventolin HFA] 4 puff INHALATION QID PRN 04/10/21 05/11/21 History Eliquis 5 mg PO BID #60 tablet 09/05/20 09/28/20 Rx acetaminophen [Mapap 650 mg PO Q4H PRN 30 Days tablet 09/10/20 09/28/20 Rx (acetaminophen)] atorvastatin 10 mg PO HS 30 Days #30 tablet 09/10/20 09/28/20 Rx benzocaine-menthol [Chloraseptic 1 igor PO PRN PRN 30 Days ea 09/10/20 09/28/20 Rx Sore Throat] bisacodyl 10 mg RECTAL Q24H PRN 30 Days ea 09/10/20 09/28/20 Rx docusate sodium 100 mg PO Q12HR 30 Days #60 cap 09/10/20 09/28/20 Rx tamsulosin [Flomax] 0.4 mg PO DAILY #30 cap 09/10/20 09/28/20 Rx umeclidinium-vilanterol [Anoro 1 inh INHALATION DAILY #60 ea 09/10/20 09/28/20 Rx Ellipta] Lexapro 10 mg PO DAILY 09/28/20 09/28/20 History cholecalciferol (vitamin D3) 50,000 units PO WEEKLY 09/28/20 09/28/20 History Allergies Allergy/AdvReac Type Severity Reaction Status Date / Time No Known Allergies Allergy Verified 09/28/20 21:16 Vital Signs Vital Signs - 24 hr 09/28/20 14:25 09/28/20 14:27 09/28/20 14:31 Temperature 97.1 F L Pulse Rate 86 88 76 Respiratory Rate 20 19 19 Blood Pressure 125/71 125/71 Pulse Oximetry 99 99 100 09/28/20 14:39 09/28/20 14:46 09/28/20 15:01 Temperature Pulse Rate 76 82 71 Respiratory Rate 21 H 17 Blood Pressure 140/74 111/66 Pulse Oximetry 100 09/28/20 15:30 09/28/20 16:00 09/28/20 16:16 Temperature Pulse Rate 65 63 Respiratory Rate 15 19 20 Blood Pressure 126/67 116/95 H Pulse Oximetry 97 09/28/20 16:47 09/28/20 17:0
[2020-09-29 04:00] VITALS: PULSE 78
[2020-09-29 05:35] VITALS: BP 145/75; PULSE 92; RESP 17; TEMP 36.6; O2SAT 96
[2020-09-29 06:10] LABS: Basophils Percent Auto 0.4 % (0.2-1.2); Eosinophils Absolute Auto 0.1 K/mm3 (0-0.3); Eosinophils Percent Auto 0.8 % (0-4.4); Hematocrit 31.9 % (42.0-52.0); Hemoglobin 10.6 g/dL (14.0-18.0); Immature Granulocyte Absolute 0.05 K/mm3 (0.00-0.031); Immature Granulocyte Percent A 0.6 % (0-0.5); Lymphocytes Absolute Auto 0.69 K/mm3 (0.9-3.2); Lymphocytes Percent Auto 7.7 % (18.3-44.2); Mean Corpuscular HGB Conc 33.2 g/dl (32-36); Mean Corpuscular Hemoglobin 30.5 pg (26-34); Mean Corpuscular Volume 91.7 fl (80-100); Monocytes Absolute Auto 0.7 K/mm3 (0.1-0.6); Monocytes Percent Auto 8.1 % (2.6-8.5); Neutrophils Absolute Auto 7.4 K/mm3 (1.3-6.7); Neutrophils Percent Auto 82.4 % (45.5-73.1); Platelet Count Result 96 k/mm3 (150-375); Red Blood Count 3.48 M/mm3 (4.6-6.20); Red Cell Distribution Width 13.9 % (11.5-14.5); White Blood Count 8.9 K/mm3 (4.5-10.0)
[2020-09-29 06:29] LABS: Alanine Aminotransferase 29 U/L (4-50); Albumin Level 3.2 g/dL (3.5-5.1); Alkaline Phosphatase 92 U/L (38-126); Anion Gap 7 mmol/L (8-16); Aspartate Amino Transferase 42 U/L (17-59); Bilirubin,Total 1.3 mg/dL (0.2-1.3); Blood Urea Nitrogen 16 mg/dL (9-20); Calcium 8.7 mg/dL (8.4-10.2); Carbon Dioxide 25 mmol/L (22-30); Chloride 105 mmol/L (98-107); Estimated Glomerular Filt Rate > 60; Glucose 102 mg/dL (75-110); Potassium 3.7 mmol/L (3.4-5.0); Sodium 137 mmol/L (137-145)
--- NOTE | 2020-09-29 07:39 | PCRCNOTE ---
Pt unable to do DPI
[2020-09-29 08:00] VITALS: PULSE 97
[2020-09-29] MEDS: FAMOTIDINE 20 MG/2 ML VIAL IV PUSH (09:17)
[2020-09-29] MEDS: LACTATED RINGERS 1,000 ML 75 ML IV CONT (09:21)
[2020-09-29 11:02] VITALS: BMI 10.0
[2020-09-29 11:31] VITALS: BMI 10.0
[2020-09-29 12:00] VITALS: PULSE 78
--- NOTE | 2020-09-29 14:27 | PM.DS ---
DS: Admitting Diagnosis Admitting Diagnosis Admitting Diagnosis: Acute CVA DS: Discharge Diagnosis Discharge Diagnosis (1) Hospice care: Code(s): Z51.5 - Encounter for palliative care Status: Acute Assessment and Plan: Based on significant physical and cognitive debility, patient's family arranged care with Hospice at patient's [place] [facility]. He had been declining for some time and family was in the process of establishing with hospice services prior to this admission. Further care per hospice. (2) Acute CVA (cerebrovascular accident): Code(s): I63.9 - Cerebral infarction, unspecified Status: Acute Assessment and Plan: Suspected based on clinical findings. Head CT showed no acute findings. He had new onset left side flaccidity and garbled speech. Swallow study performed which demonstrated risk of aspiration and inability to participate in oral feeding with recommendation to be NPO. Did not proceed with MRI based on family decision to pursue Hospice. (3) Atrial fibrillation: Code(s): I48.91 - Unspecified atrial fibrillation Status: Acute Assessment and Plan: (4) COPD (chronic obstructive pulmonary disease) case management patient: Code(s): J44.9 - Chronic obstructive pulmonary disease, unspecified Status: Acute Assessment and Plan: (5) History of tobacco abuse: Code(s): Z87.891 - Personal history of nicotine dependence Status: Acute Assessment and Plan: (6) Squamous cell carcinoma of lung: Code(s): C34.90 - Malignant neoplasm of unspecified part of unspecified bronchus or lung Status: Acute Assessment and Plan: Per son, he had not been receiving treatment and hospice was being considered for this reason as well. DS: Summary Hospital Course Reason for hospitalization: Acute CVA Hospital Course: Date of admission: 09/28/2020 Date of discharge: 09/29/2020 Ebenezer Quijano is a 70-year-old male with history of CVA, squamous cell lung cancer, COPD, and recent pulmonary embolism who presented to the emergency department from [place] [facility] on 09/28/2020 due to changes in his mental status in which she had garbled speech and was unable to follow commands. He came in to the ER around 6:00 p.m. with last known normal time around 9:00 a.m., although at baseline he had deficits from previous stroke. Upon presentation to the ED, his vital signs were stable, H&H slightly decreased, electrolytes stable, urinalysis abnormal, CXR with mild scarring at lung apices and head CT with no acute findings. He was admitted to the hospitalist service for further evaluation and management. Hospice care was arranged, and therefore did not proceed with MRI. I spoke with patient's son via phone to provide updates and answer his questions. Patient was discharged with guarded prognosis to hospice on 09/29/2020. Status at Discharge Functional status at discharge: bed bound Overall status at discharge: patient is not back to baseline Time Spent with Patient Time attestation: Total time spent providing and/or coordinating discharge services:45 minutes Time spent: Greater than 30 minutes Exam Narrative: Exam Narrative: Mr. Quijano is an ill-appearing 70-year-old male who is lying supine in bed. He is in NARD. Neuro: awake, no verbal responses but will occasionally mumble in response to questions. Able to follow some commands including opening his eyes and attempts to stick out his tongue but unable to do so.He squeezes my fingers with his right hand but unable to do so with left hand. Left upper and lower extremity is flaccid. He wiggles his right toes. HEENMT: normocephalic, atraumatic, EOMI, sclerae anicteric, dry oral mucosa Neck: supple, no lymphadenopathy Respiratory: Loud rhonchi heard throughout entire precordium. Snoring respirations audible. Cardio: unable to auscultate heart sounds over loud rhonchi. Tele
== END 2020-09-29 21:09 | disposition hospice, inpatient (51) ==
LOC: ANHED 18:25 → ANH3MED 19:43
PROVIDERS: Emergency Medicine Emergency Medical Services; Admitting Provider Family Medicine; Emergency Provider Emergency Medicine; PCP Family Medicine; Visit Provider Internal Medicine
DX: R41.82 Altered mental status, unspecified (principal); C34.90 Malignant neoplasm of unspecified part of unspecified bronchus or lung; R47.1 Dysarthria and anarthria; I69.354 Hemiplegia and hemiparesis following cerebral infarction affecting left non-dominant side; I48.91 Unspecified atrial fibrillation; J44.9 Chronic obstructive pulmonary disease, unspecified; R06.02 Shortness of breath; Z86.711 Personal history of pulmonary embolism; Z79.01 Long term (current) use of anticoagulants; Z87.891 Personal history of nicotine dependence
CPT/HCPCS: 36415; 36600; 70450; 71045; 80053; 81001; 82805; 85025; 85055; 85730; 87086; 87088; 92610; 93005; 96361; 96374; 96376; 97162; 97166; 99285; A9270; G0378; J7120